=== PATIENT | male | born 1960 | race Caucasian/White ===

== ENCOUNTER 2023-04-21 09:10 | Day surgery (SDC) | payer OTHER, SELFPAY ==
[2023-04-16 11:17] VITALS: BMI 31.0
--- NOTE | 2023-04-18 08:12 | MHC.SHP ---
Pre-Procedural Eval Section A Date of Service: 04/18/23 The patient is an INPATIENT: No Changes since office visit: No Cold of Flu in the past 2 weeks, No New Medical Problems, No Changes in Medication and No Patient answered all questions The History & Physical has been completed within 30 days and I have reviewed it.: Yes Section B Chief Complaint: Age-related nuclear cataract, left eye Allergies: Allergies Allergy/AdvReac Type Severity Reaction Status Date / Time No Known Allergies Allergy Verified 04/16/23 10:47 Plan Diagnosis/Plan: Unchanged I have reviewed the history and physical and performed a pertinent physical examination on my patient. No changes have occurred unless specified. Time Spent With Patient Time: Total time managing care of this patient today ____ minutes.
--- NOTE | 2023-04-18 14:59 | HO.ANESPROP2 ---
HPI - Anesthesia Eval Consult details Narrative: 63yo M for Left Cataract Extraction IOL Trabeculectomy, Left Trabeculectomy PCP cleared No previous cataract on record [facility] Past Medical History Medical History (Updated 04/16/23 @ 10:47 by Jeniffer Richmodn RN) Asthma CVA (cerebral vascular accident) Diabetes Diverticulosis GERD (gastroesophageal reflux disease) Glaucoma HTN (hypertension) Hyperlipidemia Intraparenchymal hemorrhage of brain Legionnaires' disease Obesity, Class I, BMI 30.0-34.9 (see actual BMI) Psoriatic arthritis Skin cancer Tubular adenoma Surgical History Surgical History (Updated 04/16/23 @ 11:08 by Jeniffer Richmond RN) History of partial colectomy Hx of melanoma excision Social History Social History Are you a primary infant childcare provider to a significant other at home: No Do you presently have visiting nurse or other home services: No Patient Tobacco Use Status: Never used Tobacco Use of substances other than those prescribed or required for medical reasons: No Have you been hit, kicked, punched, or otherwise hurt by someone within the past year? If so, by whom?: No Are you DNR?: No Advance Directives: No Advance Directives Information Provided: No Advance Directives on File: No Recently lost weight without trying: No Eating poorly because of decreased appetite: No Nutrition Risks: No Nutritional Risk Poor oral hygiene: Yes (partial dentures upper and lower) Meds Allergies Allergy/AdvReac Type Severity Reaction Status Date / Time No Known Allergies Allergy Verified 04/16/23 10:47 Home Medications Medication Instructions Recorded Confirmed Last Taken Type acetaminophen 500 mg tablet 1,000 mg PO DAILY 04/16/23 04/16/23 Unknown History albuterol sulfate 90 mcg/actuation 2 puff inhalation Q4H PRN wheezing 04/16/23 04/16/23 Unknown History aerosol inhaler (Ventolin HFA) aspirin 81 mg tablet,delayed 81 mg PO BEDTIME 04/16/23 04/16/23 Unknown History release atorvastatin 80 mg tablet 80 mg PO BEDTIME 04/16/23 04/16/23 Unknown History cholecalciferol (vitamin D3) 125 125 mcg PO DAILY 04/16/23 04/16/23 Unknown History mcg (5,000 unit) tablet (Vitamin D3) folic acid 1 mg tablet 1 mg PO DAILY 04/16/23 04/16/23 Unknown History insulin glargine 100 unit/mL (3 65 unit subcut BEDTIME 04/16/23 04/16/23 Unknown History mL) subcutaneous pen (Lantus Solostar U-100 Insulin) krill [id number]-epa 150 1 cap PO DAILY 04/16/23 04/16/23 Unknown History mg-450 mg capsule,delayed release latanoprost 0.005 % eye drops 1 drp BEDTIME 04/16/23 04/16/23 Unknown History lisinopril 10 1 tab PO DAILY 04/16/23 04/16/23 Unknown History mg-hydrochlorothiazide 12.5 mg tablet methotrexate sodium 2.5 mg tablet 22.5 mg PO QWEEK 04/16/23 04/16/23 Unknown History omeprazole 20 mg capsule,delayed 20 mg PO DAILY 04/16/23 04/16/23 Unknown History release timolol maleate 0.5 % eye drops 1 drp QAM 04/16/23 04/16/23 Unknown History Exam Exam Date and Time: April 18, 2023 145 Height,Weight and Vital Signs: Height 5 ft 9 in Weight 95.254 kg Assessment and Plan Assessment Anesthesia Assessment: Chart Reviewed
[2023-04-21 10:06] VITALS: BP 143/74; PULSE 66; RESP 16; TEMP 36.3; O2SAT 91
[2023-04-21] MEDS: Tetracaine HCl/PF 0.5% Oph Sol 4 ML DROPS 1 DROP EYE-LEFT (10:11)
[2023-04-21 10:14] LABS: Glucose, Whole Blood 115 mg/dL (60-115)
[2023-04-21] MEDS: Cyclopentolate 1 % Ophth Sol 2 ML DRPBTL 1 DROP EYE-LEFT ×3 (10:14→10:26)
[2023-04-21] MEDS: Tropicamide 1 % Ophth Sol 3 ML BTL 1 DROP EYE-LEFT ×3 (10:16→10:27)
[2023-04-21] MEDS: Ketorolac Tromethamine 0.5% Op 5 ML DROPS 1 DROP EYE-LEFT ×3 (10:17→10:28)
[2023-04-21] MEDS: Phenylephrine HCL 2.5% Oph SoL 2 ML BOTTLE 1 DROP EYE-LEFT ×3 (10:19→10:30)
[2023-04-21] MEDS: Lactated Ringers 500 ML 50 ML IV (10:20)
--- NOTE | 2023-04-21 10:28 | HO.ANESPROP2 ---
[facility] Past Medical History Medical History Asthma CVA (cerebral vascular accident) Diabetes Diverticulosis GERD (gastroesophageal reflux disease) Glaucoma HTN (hypertension) Hyperlipidemia Intraparenchymal hemorrhage of brain Legionnaires' disease Obesity, Class I, BMI 30.0-34.9 (see actual BMI) Psoriatic arthritis Skin cancer Tubular adenoma Family History Family history of problems with anesthesia: No Surgical History Surgical History History of partial colectomy Hx of melanoma excision History of Problems with Anesthesia: No Social History Social History Are you a primary school childcare attendant to a significant other at home: No Do you presently have visiting nurse or other home services: No Patient Tobacco Use Status: Never used Tobacco Use of substances other than those prescribed or required for medical reasons: No Have you been hit, kicked, punched, or otherwise hurt by someone within the past year? If so, by whom?: No Are you DNR?: No Advance Directives: No Advance Directives Information Provided: Yes Advance Directives on File: No Recently lost weight without trying: No Eating poorly because of decreased appetite: No Nutrition Risks: No Nutritional Risk Poor oral hygiene: Yes (partial dentures upper and lower) Meds Allergies Allergy/AdvReac Type Severity Reaction Status Date / Time No Known Allergies Allergy Verified 04/21/23 09:55 Active Medications: Current Medications Albuterol Sulfate (Albuterol Sulfate (0.083%) 2.5 Mg/3 Ml Vial.Neb) 2.5 mg INHALE ONCE PRN PRN Reason: Shortness of Breath/Wheezing Lactated Ringer's (Lr) 500 mls @ 50 mls/hr IV .Q10H FUNMILAYO Stop: 04/21/23 19:44 Last Admin: 04/21/23 10:20 Dose: 50 mls/hr Povidone Iodine (Povidone Iodine 5 % Ophth Soln 30 Ml Bottle) 1 appl EYE-LEFT PREOP PRN PRN Reason: Pre-Op Surgical Implant Prophy Home Medications Medication Instructions Recorded Confirmed Last Taken Type acetaminophen 500 mg tablet 1,000 mg PO DAILY 04/16/23 04/16/23 04/21/23 08:00 History albuterol sulfate 90 mcg/actuation 2 puff inhalation Q4H PRN wheezing 04/16/23 04/16/23 Unknown History aerosol inhaler (Ventolin HFA) aspirin 81 mg tablet,delayed 81 mg PO BEDTIME 04/16/23 04/16/23 Unknown History release atorvastatin 80 mg tablet 80 mg PO BEDTIME 04/16/23 04/16/23 Unknown History cholecalciferol (vitamin D3) 125 125 mcg PO DAILY 04/16/23 04/16/23 Unknown History mcg (5,000 unit) tablet (Vitamin D3) folic acid 1 mg tablet 1 mg PO DAILY 04/16/23 04/16/23 Unknown History insulin glargine 100 unit/mL (3 65 unit subcut BEDTIME 04/16/23 04/16/23 Unknown History mL) subcutaneous pen (Lantus Solostar U-100 Insulin) krill [id number]-dha-epa 150 1 cap PO DAILY 04/16/23 04/16/23 Unknown History mg-450 mg capsule,delayed release latanoprost 0.005 % eye drops 1 drp BEDTIME 04/16/23 04/16/23 Unknown History lisinopril 10 1 tab PO DAILY 04/16/23 04/16/23 04/21/23 08:00 History mg-hydrochlorothiazide 12.5 mg tablet methotrexate sodium 2.5 mg tablet 22.5 mg PO QWEEK 04/16/23 04/16/23 Unknown History omeprazole 20 mg capsule,delayed 20 mg PO DAILY 04/16/23 04/16/23 04/21/23 08:00 History release timolol maleate 0.5 % eye drops 1 drp QAM 04/16/23 04/16/23 Unknown History Exam Exam Date and Time: April 21, 2023 1028 Height,Weight and Vital Signs: Height 5 ft 9 in Weight 95.254 kg Last Vital Signs Temp 97.4 F 04/21/23 10:06 Pulse 66 04/21/23 10:06 Resp 16 04/21/23 10:06 BP 143/74 H 04/21/23 10:06 Pulse Ox 91 L 04/21/23 10:06 O2 Del Method Room Air 04/21/23 10:06 Pertinent Lab Results Pertinent Lab Results: Laboratory Tests 04/21/23 10:08 POC Glucose 115 Airway Mallampati Class: III TM Dist: >3cm Neck ROM: Full Assessment and Plan Assessment Anesthesia Assessment: Anesthesia Plan Discussed and Chart Reviewed Final Anesthetic Review Family History of Problems with Anesthesia: No History of Problems with Anesthesia: No NPO: Yes ASA Class: III Final Preanesthetic Review: No Changes in Pt Med Stat, Meds/Allgs Chart Reviewed, Consent Obtained/Reviewed and Anes Risks/Benef Reviewed Patient Risk: Intermediate Procedure Risk: Low Anesthetic Plan Anesthetic Plan: MAC: Disposition: Standard PACU
--- NOTE | 2023-04-21 11:28 | HO.PNOPHT ---
Ophthalmology Procedure Procedure Date of Service: 04/21/23 Ophthalmology Viscoelastic: Healsantiago Duet Dual Pack Pro Ophthalmology Lenses: TECTUTU [id number] (22) Procedure Notes: PREOPERATIVE DIAGNOSIS: Decreased visual acuity left eye secondary to cataract and glaucoma POSTOPERATIVE DIAGNOSIS: Same PROCEDURE: Left cataract extraction with intraocular lens insertion and trabeculectomy, left eye SURGEON: Hood Cabrera M.D. ANESTHESIA: Topical/MAC ESTIMATED BLOOD LOSS: None COMPLICATIONS: None After obtaining informed consent, the patient was brought to the operating room suite and placed in the supine position. After adequate sedation per anesthesia, topical drops of Tetracaine were given to the left eye. The eye was then prepped and draped in the usual sterile fashion. The operating room microscope was then positioned over the left eye and a lid speculum placed. 2% Lidocaine was instilled subconjunctivally. After awaiting 30 seconds, a paracentesis was created superiorly. Hemostasis was then achieved using wet field cautery. Mitomycin .4mg/ml was then placed in the conjunctival pocket and held in place for two minutes. The subconjunctival pocket was then irrigated copiously with 20 mls of BSS. Paracentesis was then created. Viscoelastic was then instilled into the anterior chamber. A crescent blade was then utilized to create a partial thickness sclera wound followed by advancement to clear cornea with the crescent blade. A keratome was then utilized to enter the anterior chamber. Capsulotomy forceps were then utilized to create a continuous circular tear capsulotomy. Hydrodissection and hydrodelineation were carried out until adequate mobilization of the nucleus occurred. Phacoemulsification was utilized to remove the dense central nucleus followed by removal of remnant cortical material utilizing the automated aspiration irrigation unit. Viscoelastic was then instilled into the posterior capsular bag followed by placement of a posterior chamber intraocular lens. Attention was then directed to create a trabeculectomy. A Terra punch was then utilized to create the trabeculectomy. The residual Viscoelastic was then removed utilizing the automated IA machine. The egress of aqueous was evaluated and found to be appropriate. The conjunctiva was then closed with a 9-0 vicryl suture. BSS was then instilled into the anterior chamber creating a superior bleb, without obvious leakage. Intracameral injection of Vigamox 0.3%, 0.1 ml and subtenon injection of Kenalog-40 0.2 ml was given followed by an atropine drop. The patient tolerated the procedure well and will be followed up in the a.m.
[2023-04-21 12:26] VITALS: BP 135/67; PULSE 59; RESP 18; TEMP 36.7; O2SAT 95
== END 2023-04-21 12:32 | disposition home or self-care (01) ==
PROVIDERS: PCP Internal Medicine Cardiovascular Disease; Visit Provider Ophthalmology
PROC: (CPT 66984; principal; 2023-04-21 11:20)
DX: H25.12 Age-related nuclear cataract, left eye (principal); H54.7 Unspecified visual loss; H40.1133 Primary open-angle glaucoma, bilateral, severe stage; E11.9 Type 2 diabetes mellitus without complications; I10 Essential (primary) hypertension; E78.5 Hyperlipidemia, unspecified; Z86.73 Personal history of transient ischemic attack (TIA), and cerebral infarction without residual deficits; Z79.4 Long term (current) use of insulin; Z79.899 Other long term (current) drug therapy; Z79.82 Long term (current) use of aspirin
CPT/HCPCS: 66984; 66170; 82947; J2250; J3301; J7315; V2632

== ENCOUNTER 2023-05-12 10:53 | Inpatient (IN) | payer OTHER, SELFPAY ==
--- NOTE | ~2023-05-12 | MR_ITS ---
EXAMINATION: MR BRAIN WITHOUT CONTRAST CLINICAL INFORMATION: Aphasia. COMPARISON: Head CT 05/12/2023. TECHNIQUE: Multiplanar, multisequence imaging of the brain was performed without intravenous contrast. FINDINGS: There is a small acute lacunar infarct in the left putamen seen on series 3 image . Several chronic lacunar infarcts are seen in the bilateral frontal lobe deep white matter, bilateral basal ganglia, bilateral thalami, and in the right cerebellum. Mild chronic microangiopathic changes are seen within the white matter. There is no hemorrhage, mass, or extra-axial fluid collection. Chronic hemosiderin staining is noted in the region of the right thalamic infarct. The ventricles are normal in size without hydrocephalus. The major arterial flow voids are preserved at the skull base. There is signal abnormality within the left globe and changes of left-sided lens replacement. MR/MR head/brain wo con IMPRESSION: Small acute lacunar infarct in the left putamen. Multiple chronic lacunar infarcts in the bilateral lobe deep white matter, basal ganglia, thalami, and right cerebellum. Signal abnormality noted in the left globe which may related to prior retinopexy or alternatively could be related to subretinal fluid. Recommend correlating with ophthalmologic exam or ophthalmologic surgical history.
--- NOTE | ~2023-05-12 | CT_ITS ---
CT ANGIOGRAM NECK WITH CONTRAST CT ANGIOGRAM BRAIN WITH CONTRAST CLINICAL INFORMATION: Aphasia. COMPARISON: Head CT May 12, 2023. TECHNIQUE: Test bolus sequences followed by intravenous administration 70 mL of Omnipaque 350. Helical imaging was performed in the axial plane from the thoracic inlet to the skull vertex. Delayed postcontrast imaging of the head was also performed. The data was processed at the educational technologist workstation for generation of MIP sequences. Angled MIPs and volume rendered reformatted images were also generated at an offline 3D workstation under concurrent supervision. Stenoses are assessed in accordance with NASCET criteria unless otherwise indicated. This CT examination was performed using dose optimization techniques as appropriate, variously including the following: *Automated exposure control *Adjustment of mA and/or kV according to patient size (this includes techniques or standardized protocols for targeted exams where dose is matched to indication/reason for exam; i.e. extremities or head) *Use of iterative reconstruction technique FINDINGS: BRAIN: There is a small age-indeterminate right striatocapsular infarct and there is a small age-indeterminate upper left putamen infarct that can be more definitively aged with MRI as indicated. Multiple lacunar infarcts within the deep escamilla nuclei bilaterally and the right cerebellum, likely chronic however difficult to definitively age without priors available for comparison. There is no mass effect and there is no intracranial hemorrhage. [There is no intracranial hemorrhage, hydrocephalus, extra-axial surface collection, midline shift, or other herniation pattern. The basilar cisterns are preserved. No significant soft tissue abnormality. No acute osseous abnormality. The paranasal sinuses and the mastoid air cells are well aerated.] CERVICAL SOFT TISSUES AND LUNG APICES: Imaged upper lungs are clear. No significant soft tissue findings within the neck. There is multilevel cervical spondylosis. NECK CTA: [There is a classic 3 vessel configuration of the aortic arch. Proximal arch vessels are non-stenotic. The vertebral arteries are codominant. No significant ostial stenosis is visualized on either side. Both vertebral arteries are widely patent throughout their extracranial cervical course. Both common and internal carotid arteries are normal in course and caliber.] BRAIN CTA: [There is normal opacification of major intracranial arteries. No focal flow-limiting stenosis nor discrete proximal large artery occlusion. There is a 1.5 mm infundibulum at the hypoplastic right posterior communicating artery origin. Timing of the contrast bolus allows assessment of the major dural venous sinuses, which all opacify normally] CT/CT angio head neck stroke IMPRESSION: - There is a small age-indeterminate right striatocapsular infarct and there is a small age-indeterminate upper left putamen infarct that can be more definitively aged with MRI as indicated. Multiple lacunar infarcts within the deep escamilla nuclei bilaterally and the right cerebellum, likely chronic however difficult to definitively age without priors available for comparison. There is no mass effect and there is no intracranial hemorrhage. - No significant arterial stenoses and no acute arterial occlusions within the head or neck. Covering provider paged with these findings at 2:09 PM on May 12, 2023. I discussed the findings with Dr. Hankins at 2:14 PM on May 12, 2023.
--- NOTE | ~2023-05-12 | CT_ITS ---
EXAMINATION: CT HEAD WITHOUT CONTRAST CLINICAL INFORMATION: Aphasia. COMPARISON: None available. TECHNIQUE: Contiguous axial imaging was performed from the skull base to vertex without intravenous administration of contrast. Coronal and sagittal reformatted images were obtained. This CT examination was performed using dose optimization techniques as appropriate, variously including the following: *Automated exposure control *Adjustment of mA and/or kV according to patient size (this includes techniques or standardized protocols for targeted exams where dose is matched to indication/reason for exam; i.e. extremities or head) *Use of iterative reconstruction technique DLP: 786 mGy-cm FINDINGS: There is mild widening of the cortical sulci and associated ventriculomegaly. The lateral ventricles are symmetrical. The third and fourth ventricles are in their normal midline position. The basilar and prepontine cisterns are unremarkable. Mild periventricular microvascular changes are seen. Old lacunar type infarct in the left frontal lobe in the left anterior lateral periventricular region. There is no acute intra or extracerebral abnormality. There is no mass effect or midline shift. Sections through the bony calvarium are unremarkable. The orbits are intact. The paranasal sinuses are clear. The mastoid air cells are clear. The nasal septal deviation, apex the right is seen. Mild to moderate mid nasal septal deviation, apex the right with associated apical spur. CT/CT head/brain wo IV con IMPRESSION: No acute intracranial pathology.
[2023-05-12 11:02] VITALS: BP 124/79; BP 180/74; PULSE 68; RESP 15; O2SAT 96; O2SAT 97; BMI 31.3
--- NOTE | 2023-05-12 11:04 | ED.WEAKNESS ---
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 Patient fell that last night and this morning he couldn't find the words. He felt that his symptoms started at 6pm. Onset (ago): hour(s) Duration: improved Severity: mild Related Data Home Medications Medication Instructions Recorded Confirmed acetaminophen 500 mg tablet 1,000 mg PO DAILY 04/16/23 05/12/23 albuterol sulfate 90 mcg/actuation 2 puff inhalation Q4H PRN wheezing 04/16/23 05/12/23 aerosol inhaler (Ventolin HFA) aspirin 81 mg tablet,delayed 81 mg PO BEDTIME 04/16/23 05/12/23 release atorvastatin 80 mg tablet 80 mg PO BEDTIME 04/16/23 05/12/23 cholecalciferol (vitamin D3) 125 125 mcg PO DAILY 04/16/23 05/12/23 mcg (5,000 unit) tablet (Vitamin D3) folic acid 1 mg tablet 1 mg PO SUMOTUTHFRSA@0900 04/16/23 05/12/23 insulin glargine 100 unit/mL (3 60 unit subcut BEDTIME 04/16/23 05/12/23 mL) subcutaneous pen (Lantus Solostar U-100 Insulin) krill [id number]-8-dha-epa 150 1 cap PO DAILY 04/16/23 05/12/23 mg-450 mg capsule,delayed release lisinopril 10 1 tab PO DAILY 04/16/23 05/12/23 mg-hydrochlorothiazide 12.5 mg tablet methotrexate sodium 2.5 mg tablet 20 mg PO WE@0900 04/16/23 05/12/23 omeprazole 20 mg capsule,delayed 20 mg PO DAILY 04/16/23 05/12/23 release insulin aspart U-100 100 unit/mL See Protocol subcut TIDAC 05/12/23 05/12/23 (3 mL) subcutaneous pen Allergies Allergy/AdvReac Type Severity Reaction Status Date / Time No Known Allergies Allergy Verified 04/21/23 09:55 Review of Systems Review of Systems: Yes all other systems are reviewed and are negative Neurologic: Denies Sensory deficit (Neuro) [facility] Past Medical History Medical History Asthma CVA (cerebral vascular accident) Diabetes Diverticulosis GERD (gastroesophageal reflux disease) Glaucoma HTN (hypertension) Hyperlipidemia Intraparenchymal hemorrhage of brain Legionnaires' disease Obesity, Class I, BMI 30.0-34.9 (see actual BMI) Psoriatic arthritis Skin cancer Tubular adenoma Surgical History History of partial colectomy Hx of melanoma excision Social History Social History Are you a primary caretaker to a significant other at home: No Do you presently have visiting nurse or other home services: No Patient Tobacco Use Status: Never used Tobacco Advance Directives: No Advance Directives Information Provided: No Physical Exam Vital Signs: Vital Signs: Last Vital Signs Temp 97.8 F 05/12/23 14:12 Pulse 53 05/12/23 14:12 Resp 16 05/12/23 14:12 BP 136/79 05/12/23 14:12 Pulse Ox 94 05/12/23 14:12 O2 Del Method Room Air 05/12/23 14:12 BMI result Body Mass Index 31.3 Const: General: healthy appearing Nutritional Appearance: average body habitus Orientation/consciousness: oriented to person and patient oriented x3 Limitations: no limitations HEENT: Head: Yes normal to inspection Ears: external ears normal General nose exam: Normal external nose present Mouth: Normal oral and palatal mucosa present and oropharynx normal Throat: Yes posterior oropharynx normal Eyes: General: appearance normal, both eyes and all related structures Neck: Other: supple Neck: Yes normal visual inspection Chest: Chest palpation & inspection: normal inspection of the chest Resp: Auscultation: clear to auscultation bilaterally Cardio: Jugular venous distension: no JVD Rate: regular rate Rhythm: regular rhythm Heart sounds: S1 normal heart sound present and S2 normal heart sound present GI: Inspection: Yes normal to inspection Palpation (GI): Soft to palpation, nontender and No hepatosplenomegaly present Auscultation: normal bowel sounds : General: Yes no CVA tenderness Back/Spine/Pelvis: Back: no CVA tenderness Skin: General skin exam: no rashes or lesions noted Neuro: General: oriented to person and patient oriented x3 Cranial nerves: Yes CN's II-XII intact bilaterally Motor exam (neuro): 5/5 motor strength present throughout Sensory Exam: No Sensory deficit (Neuro) Extrem: General: Yes normal to inspection Psych: Appearance: grossly normal NIH Stroke Scale Internal: Initial- Upon Arrival Level of Consciousness: Alert Level of Consciousness Questions: Answers both questions correctly Level of Consciousness Commands: Performs both tasks correctly Best Gaze: Normal Visual: No visual loss Facial Palsy: Normal Motor Arm (Right): No drift Motor Arm (Left): No drift Motor Leg (Right): No drift Motor Leg (Left): No drift Limb Ataxia: Absent Sensory: Normal Best Language: No aphasia Dysarthia: Normal Extinction and Inattention: No abnormality Score: 0 Course Reevaluation(s) Reevaluation #1: patient non focal, no acute infarct on CT will admit to [facility] for TIA Time: 13:21 Medications Administered Discontinued Medications Generic Name Dose Route Start Last Admin Trade Name Osmanq PRN Reason Stop Dose Admin Iohexol 100 ml 05/12/23 13:34 05/12/23 13:34 Iohexol 350 Mg/Ml 100 Ml Infus..Btl IV 05/12/23 13:35 70 ml ONCE ONE Administration Medical Decision Making Differential Diagnosis Differential Diagnoses: The differential diagnosis associated with the presentation includes (CVA, TIA, cerebral bleed, cerebral mass were all considered) Admission/Observation Consideration of admission/observation: Escalation of care including admission/observation considered (Upon arrival this 63 yo male with prior CVA was considered for admission) Consult Healthcare Provider Management of the patient was discussed with: Hospitalist Lab Data MDM Lab Attestation statement: I reviewed the patient's lab results. (elevated glucose noted) 05/12/23 11:18 05/12/23 11:18 Labs: Lab Results 05/12/23 05/12/23 05/12/23 Range/Units 11:13 11:18 11:18 WBC 7.8 (4.8-10.8) X10*3/uL RBC 4.72 (4.60-5.80) X10*6/uL Hgb 13.8 L (14.0-18.0) g/dl Hct 42.0 (42.0-52.0) % MCV 89.0 (80.0-98.0) fL MCH 29.2 (27.0-33.0) pg MCHC 32.9 (31.0-36.0) g/dl RDW 14.2 (11.0-16.0) % Plt Count 231 (160-400) X10*3/uL MPV 11.5 (9.4-12.4) fL Immature Gran % (Auto) 0.5 H (0.0-0.4) % Neut % (Auto) 65.7 (45-73) % Lymph % (Auto) 24.7 (20-40) % Pierce % (Auto) 6.2 (2-11) % Eos % (Auto) 1.9 (0-4) % Baso % (Auto) 1.0 (0-2) % Lymph # (Auto) 1.9 (1.2-4.9) X10*3/uL Pierce # (Auto) 0.5 (0.1-1.2) X10*3/uL Eos # (Auto) 0.2 (0.0-0.4) X10*3/uL Baso # (Auto) 0.1 (0.0-0.2) X10*3/uL Abs Immat Gran (auto) 0.04 H (0.00-0.03) X10*3/uL Absolute Neuts (auto) 5.1 (2.0-8.3) x10*3/uL Absolute Nucleated RBC 0.000 (0.0-0.012) X10*3/uL Nucleated RBC % (auto) 0.0 (0.0-0.2) /100WBC PT (11.1-13.3) SEC Whole Blood PT (11.1-13.5) sec INR (0.9-1.1) Whole Blood INR (0.9-1.1) APTT (26.0-36.4) SEC Sodium 139 (135-145) mmol/L Potassium 3.8 (3.3-5.1) mmol/L Chloride 103 (96-108) mmol/L Carbon Dioxide 27 (22-29) mmol/L Anion Gap 13 (12-20) BUN 15 (9-16) mg/dL Creatinine 1.16 (0.5-1.4) mg/dL Estim Creat Clear Calc 74.5 Estimated GFR > 60 POC Glucose 199 H (60-115) mg/dL Random Glucose 202 H (60-115) mg/dL Calcium 10.1 (8.4-10.2) mg/dL Total Creatine Kinase 143 (38-174) U/L Troponin I High Sens (<3.5-35.0) ng/L 05/12/23 05/12/23 05/12/23 Range/Units 11:19 11:19 11:37 WBC (4.8-10.8) X10*3/uL RBC (4.60-5.80) X10*6/uL Hgb (14.0-18.0) g/dl Hct (42.0-52.0) % MCV (80.0-98.0) fL MCH (27.0-33.0) pg MCHC (31.0-36.0) g/dl RDW (11.0-16.0) % Plt Count (160-400) X10*3/uL MPV (9.4-12.4) fL Immature Gran % (Auto) (0.0-0.4) % Neut % (Auto) (45-73) % Lymph % (Auto) (20-40) % Pierce % (Auto) (2-11) % Eos % (Auto) (0-4) % Baso % (Auto) (0-2) % Lymph # (Auto) (1.2-4.9) X10*3/uL Pierce # (Auto) (0.1-1.2) X10*3/uL Eos # (Auto) (0.0-0.4) X10*3/uL Baso # (Auto) (0.0-0.2) X10*3/uL Abs Immat Gran (auto) (0.00-0.03) X10*3/uL Absolute Neuts (auto) (2.0-8.3) x10*3/uL Absolute Nucleated RBC (0.0-0.012) X10*3/uL Nucleated RBC % (auto) (0.0-0.2) /100WBC PT 10.4 L (11.1-13.3) SEC Whole Blood PT 11.7 (11.1-13.5) sec INR 0.9 (0.9-1.1) Whole Blood INR 1.0 (0.9-1.1) APTT 25.5 L (26.0-36.4) SEC Sodium (135-145) mmol/L Potassium (3.3-5.1) mmol/L Chloride (96-108) mmol/L Carbon Dioxide (22-29) mmol/L Anion Gap (12-20) BUN (9-16) mg/dL Creatinine (0.5-1.4) mg/dL Estim Creat Clear Calc Estimated GFR POC Glucose (60-115) mg/dL Random Glucose (60-115) mg/dL Calcium (8.4-10.2) mg/dL Total Creatine Kinase (38-174) U/L Troponin I High Sens 3.8 (<3.5-35.0) ng/L 05/12/23 Range/Units 11:37 WBC (4.8-10.8) X10*3/uL RBC (4.60-5.80) X10*6/uL Hgb (14.0-18.0) g/dl Hct (42.0-52.0) % MCV (80.0-98.0) fL MCH (27.0-33.0) pg MCHC (31.0-36.0) g/dl RDW (11.0-16.0) % Plt Count (160-400) X10*3/uL MPV (9.4-12.4) fL Immature Gran % (Auto) (0.0-0.4) % Neut % (Auto) (45-73) % Lymph % (Auto) (20-40) % Pierce % (Auto) (2-11) % Eos % (Auto) (0-4) % Baso % (Auto) (0-2) % Lymph # (Auto) (1.2-4.9) X10*3/uL Pierce # (Auto) (0.1-1.2) X10*3/uL Eos # (Auto) (0.0-0.4) X10*3/uL Baso # (Auto) (0.0-0.2) X10*3/uL Abs Immat Gran (auto) (0.00-0.03) X10*3/uL Absolute Neuts (auto) (2.0-8.3) x10*3/uL Absolute Nucleated RBC (0.0-0.012) X10*3/uL Nucleated RBC % (auto) (0.0-0.2) /100WBC PT (11.1-13.3) SEC Whole Blood PT (11.1-13.5) sec INR (0.9-1.1) Whole Blood INR (0.9-1.1) APTT (26.0-36.4) SEC Sodium (135-145) mmol/L Potassium (3.3-5.1) mmol/L Chloride (96-108) mmol/L Carbon Dioxide (22-29) mmol/L Anion Gap (12-20) BUN (9-16) mg/dL Creatinine (0.5-1.4) mg/dL Estim Creat Clear Calc Estimated GFR POC Glucose 225 H (60-115) mg/dL Random Glucose (60-115) mg/dL Calcium (8.4-10.2) mg/dL Total Creatine Kinase (38-174) U/L Troponin I High Sens (<3.5-35.0) ng/L Independent Interpretation I performed an independent interpretation of an: EKG (sinus [address] or twave changes) and CT Scan (no bleed or mass) Radiology Impression Discussion of test interpretation with radiology: I have reviewed the radiologist's reading. (I agree with the radiology reading) Tests considered The following testing was considered but not selected: I considered an MRI but that does not to be done immediately Chronic Conditions Patient?s care impacted by: Diabetes and Hypertension Discharge Plan Discharge Clinical Impression: Transient cerebral ischemia Patient Disposition: Admitted As Inpatient
--- NOTE | 2023-05-12 11:08 | ECG_ITS ---
Test Reason : stroke Blood Pressure : / mmHG Vent. Rate : 061 BPM Atrial Rate : 061 BPM P-R Int : 174 ms QRS Dur : 084 ms QT Int : 406 ms P-R-T Axes : 024 -09 048 degrees QTc Int : 408 ms Normal sinus rhythm Minimal voltage criteria for LVH, may be normal variant ( R in aVL ) Borderline ECG No previous ECGs available Referred By: Abel Hankins Electronically Signed By:GONZALES BOYKIN MD
[2023-05-12 11:17] LABS: Glucose, Whole Blood 199 mg/dL (60-115)
[2023-05-12 11:22] LABS: MANUAL DIFF FLAG NO
[2023-05-12 11:23] LABS: Basophils Absolute Auto 0.1 X10*3/uL (0.0-0.2); Eosinophils Absolute Auto 0.2 X10*3/uL (0.0-0.4); Eosinophils Percent Auto 1.9 % (0-4); Hemoglobin 13.8 g/dl (14.0-18.0); Imm Gran Abs Auto 0.04 X10*3/uL (0.00-0.03); Imm Gran Pct Auto 0.5 % (0.0-0.4); Lymphocytes Absolute Auto 1.9 X10*3/uL (1.2-4.9); Lymphocytes Percent Auto 24.7 % (20-40); Mean Corpuscular HGB Conc 32.9 g/dl (31.0-36.0); Mean Corpuscular Hemoglobin 29.2 pg (27.0-33.0); Mean Platelet Volume 11.5 fL (9.4-12.4); Monocytes Absolute Auto 0.5 X10*3/uL (0.1-1.2); Monocytes Percent Auto 6.2 % (2-11); Neutrophils Absolute Auto 5.1 x10*3/uL (2.0-8.3); Neutrophils Percent Auto 65.7 % (45-73); Platelet Count 231 X10*3/uL (160-400); Red Blood Count 4.72 X10*6/uL (4.60-5.80); Red Cell Distribution Width 14.2 % (11.0-16.0); White Blood Count 7.8 X10*3/uL (4.8-10.8)
[2023-05-12 11:29] LABS: INTERNATIONAL NORM RATIO 0.9 (0.9-1.1); Prothrombin Time 10.4 SEC (11.1-13.3)
[2023-05-12 11:31] LABS: Partial Thromboplastin Time 25.5 SEC (26.0-36.4)
[2023-05-12 11:43] LABS: Anion Gap 13 (12-20); Blood Urea Nitrogen 15 mg/dL (9-16); Calcium 10.1 mg/dL (8.4-10.2); Carbon Dioxide 27 mmol/L (22-29); Chloride 103 mmol/L (96-108); Creatinine Clr Calc Pharmacy 74.5; Estimated Glomerular Filt Rate > 60; Glucose Random 202 mg/dL (60-115); Potassium 3.8 mmol/L (3.3-5.1); Sodium 139 mmol/L (135-145)
[2023-05-12 11:44] LABS: Prothrombin Time Whole Bld POC 11.7 sec (11.1-13.5)
[2023-05-12 11:45] LABS: Glucose, Whole Blood 225 mg/dL (60-115)
[2023-05-12 11:47] LABS: Troponin-I High Sensitivity 3.8 ng/L (<3.5-35.0)
[2023-05-12 12:43] LABS: Stroke Lab Use COMPLETE
[2023-05-12 12:56] VITALS: BP 130/70; PULSE 53; RESP 15; O2SAT 95
--- NOTE | 2023-05-12 12:59 | PC.NURSE ---
patient awake and alert, call harman within reach. patient swallow screening passed
[2023-05-12] MEDS: iohexoL 350 MG/ML 100 ML INFUS..BTL IV (13:34)
[2023-05-12 14:12] VITALS: BP 136/79; PULSE 53; RESP 16; TEMP 36.6; O2SAT 94
--- NOTE | 2023-05-12 14:19 | PHA.MEDREC ---
Pharmacy Consult ? Medication Reconciliation Pharmacy has completed the medication reconciliation. Family member had written list of medications that matched claim history. Atorvastatin was no on the list but reported he was still taking it. Patient reported he is not using any eye drops. Maira Camarena, PharmD
--- NOTE | 2023-05-12 15:52 | P.HPHOSP_ITS ---
History of Present Illness Date of Service: 05/12/23 Chief Complaint: Aphasia 63 year old man presenting with aphagia that started last night. He denied chest pain, sob, visual changes, facial droop, fall, headache. Apparently had a stroke after the JJ vaccine. At this time his symptoms have resolved . Labs all within acceptable limits, vital signs stable. Head and neck CTA showing multiple infarctions but unable to date. In the ER, patient received Tylenol, Zofran and albuterol. He will be admitted for further management and treatment of possible TIA/stroke Review of Systems Review of Systems: Denies any recent fever chills or decrease in appetite respiratory denies any shortness of breath coverage production cardiovascular denied chest pain gastrointestinal denies any dysphagia abdominal pain nausea vomiting or diarrhea genitourinary denies any dysuria frequency or hematuria musculoskeletal denies any joint pain or swelling neuropsych denies any weakness or seizures all other systems reviewed are negative [facility] Medical History Asthma CVA (cerebral vascular accident) Diabetes Diverticulosis GERD (gastroesophageal reflux disease) Glaucoma HTN (hypertension) Hyperlipidemia Intraparenchymal hemorrhage of brain Legionnaires' disease Obesity, Class I, BMI 30.0-34.9 (see actual BMI) Psoriatic arthritis Skin cancer Tubular adenoma Surgical History History of partial colectomy Hx of melanoma excision Social History Are you a primary health care analyst to a significant other at home: No Do you presently have visiting nurse or other home services: No Patient Tobacco Use Status: Never used Tobacco Advance Directives: No Advance Directives Information Provided: No Meds Allergies Allergy/AdvReac Type Severity Reaction Status Date / Time No Known Allergies Allergy Verified 04/21/23 09:55 Active Medications: Current Medications Acetaminophen (Acetaminophen 325 Mg Tablet) 650 mg PO Q6H PRN PRN Reason: Pain, Mild (Pain Scale 1-3) Ondansetron HCl (Ondansetron Hcl 4 Mg/2 Ml Vial) 4 mg IVPUSH Q8H PRN PRN Reason: Nausea and Vomiting Sodium Chloride (0.9 % Sodium Chloride Flush 3 Ml Syringe) 3 ml IVFLUSH QSHIFT FUNMILAYO Home Medications Medication Instructions Recorded Confirmed Last Taken Type acetaminophen 500 mg tablet 1,000 mg PO DAILY 04/16/23 05/12/23 05/12/23 History albuterol sulfate 90 mcg/actuation 2 puff inhalation Q4H PRN wheezing 04/16/23 05/12/23 Unknown History aerosol inhaler (Ventolin HFA) aspirin 81 mg tablet,delayed 81 mg PO BEDTIME 04/16/23 05/12/23 05/11/23 History release atorvastatin 80 mg tablet 80 mg PO BEDTIME 04/16/23 05/12/23 05/11/23 History cholecalciferol (vitamin D3) 125 125 mcg PO DAILY 04/16/23 05/12/23 05/12/23 History mcg (5,000 unit) tablet (Vitamin D3) folic acid 1 mg tablet 1 mg PO SUMOTUTHFRSA@0900 04/16/23 05/12/23 05/12/23 Hist ory insulin glargine 100 unit/mL (3 60 unit subcut BEDTIME 04/16/23 05/12/23 05/11/23 History mL) subcutaneous pen (Lantus Solostar U-100 Insulin) krill [id number] 150 1 cap PO DAILY 04/16/23 05/12/23 05/12/23 History mg-450 mg capsule,delayed release lisinopril 10 1 tab PO DAILY 04/16/23 05/12/23 05/12/23 History mg-hydrochlorothiazide 12.5 mg tablet methotrexate sodium 2.5 mg tablet 20 mg PO WE@0900 04/16/23 05/12/23 05/07/23 History omeprazole 20 mg capsule,delayed 20 mg PO DAILY 04/16/23 05/12/23 05/12/23 History release insulin aspart U-100 100 unit/mL See Protocol subcut TIDAC 05/12/23 05/12/23 05/12/23 History (3 mL) subcutaneous pen Physical Exam Vital Signs and Narrative: Vital Signs: Last Vital Signs Temp 97.8 F 05/12/23 14:12 Pulse 53 05/12/23 14:12 Resp 16 05/12/23 14:12 BP 136/79 05/12/23 14:12 Pulse Ox 94 05/12/23 14:12 O2 Del Method Room Air 05/12/23 14:12 BMI result Body Mass Index 31.3 Appearing in no acute distress head is normocephalic atraumatic eyes pupils are PERRLA sclera is anicteric mouth throat mucous membranes are intact and moist neck is supple no lymphadenopathy, no JVD noted lung sounds are clear to auscultation heart regular rate rhythm, clear S1, S2 positive bowel sounds, abdomen is soft, nontender neuro patient is alert x3, no focal deficits Results Labs 05/12/23 11:18 05/12/23 11:18 Labs: Laboratory Results - last 24 hr 05/12/23 05/12/23 05/12/23 11:13 11:18 11:18 MCV 89.0 MCH 29.2 MCHC 32.9 RDW 14.2 Plt Count 231 MPV 11.5 Immature Gran % (Auto) 0.5 H Neut % (Auto) 65.7 Lymph % (Auto) 24.7 [place] % (Auto) 6.2 Eos % (Auto) 1.9 Baso % (Auto) 1.0 Lymph # (Auto) 1.9 [place] # (Auto) 0.5 Eos # (Auto) 0.2 Baso # (Auto) 0.1 Abs Immat Gran (auto) 0.04 H Absolute Neuts (auto) 5.1 Absolute Nucleated RBC 0.000 Nucleated RBC % (auto) 0.0 PT Whole Blood PT INR Whole Blood INR APTT Anion Gap 13 Estim Creat Clear Calc 74.5 Estimated GFR > 60 POC Glucose 199 H Random Glucose 202 H Calcium 10.1 Total Creatine Kinase 143 05/12/23 05/12/23 05/12/23 11:19 11:37 11:37 MCV MCH MCHC RDW Plt Count MPV Immature Gran % (Auto) Neut % (Auto) Lymph % (Auto) [place] % (Auto) Eos % (Auto) Baso % (Auto) Lymph # (Auto) [place] # (Auto) Eos # (Auto) Baso # (Auto) Abs Immat Gran (auto) Absolute Neuts (auto) Absolute Nucleated RBC Nucleated RBC % (auto) PT 10.4 L Whole Blood PT 11.7 INR 0.9 Whole Blood INR 1.0 APTT 25.5 L Anion Gap Estim Creat Clear Calc Estimated GFR POC Glucose 225 H Random Glucose Calcium Total Creatine Kinase Imaging Radiologist's Impressions: Impressions Head CT 05/12/23 11:26 IMPRESSION: No acute intracranial pathology. Head/Neck CTA 05/12/23 13:30 IMPRESSION: - There is a small age-indeterminate right striatocapsular infarct and there is a small age-indeterminate upper left putamen infarct that can be more definitively aged with MRI as indicated. Multiple lacunar infarcts within the deep escamilla nuclei bilaterally and the right cerebellum, likely chronic however difficult to definitively age without priors available for comparison. There is no mass effect and there is no intracranial hemorrhage. - No significant arterial stenoses and no acute arterial occlusions within the head or neck. Covering provider paged with these findings at 2:09 PM on May 12, 2023. I discussed the findings with Dr. Hankins at 2:14 PM on May 12, 2023. Assessment and Plan (1) Transient cerebral ischemia: Status: Acute Plan 63 year old man admitted with TIA, possible stroke TIA aphagia resolved head CTA>multiple infarcts noted, but unable to date,no stenosis or occlusion MRI, echo and PT ordered Neuro consult statin, check lipids in the morning DM2 ss, ada diet long acting insulin GERD PPI HTN stable hold antihypertensives for now DVT prophylaxis with SCD boots for now Full code OBS Time Spent With Patient Time: Total time managing care of this patient today ____ minutes. Quality Stroke Does the patient have a stroke diagnosis?: No VTE Prior VTE?: No VTE Risk Level:: Medical - moderate - high VTE Device Contraindication: N/A - Device Ordered VTE Drug Contraindication: Treatment Not Indicated
[2023-05-12] MEDS: 0.9 % Sodium Chloride Flush 3 ML SYRINGE IVFLUSH ×2 (16:00→23:41)
[2023-05-12 18:51] VITALS: BP 139/76; PULSE 58; RESP 16; TEMP 36.6; O2SAT 97
[2023-05-12 20:00] VITALS: BP 159/82; PULSE 55; RESP 18; TEMP 36.3; O2SAT 95
[2023-05-12] MEDS: Atorvastatin Calcium 80 MG TABLET PO (20:45)
[2023-05-12 20:52] LABS: Glucose, Whole Blood 104 mg/dL (60-115)
[2023-05-12 23:53] VITALS: BP 148/67; PULSE 57; RESP 16; TEMP 36.4; O2SAT 93
[2023-05-13 04:00] VITALS: BP 173/86; PULSE 57; RESP 15; TEMP 36.3; O2SAT 94
[2023-05-13] MEDS: Omeprazole 20 MG CAPSULE.DR PO (05:24)
--- NOTE | 2023-05-13 07:00 | CA_ITS ---
Transthoracic Echocardiogram Patient (Last, First, Middle): Sandeep Carrasquillo L Gender: Male Date of : 1960 Age: 63 Procedure Date: 05/13/2023 Procedure Type: Transthoracic Echocardiogram [place] [facility] [place]: 175.26 cm Weight: 99.79 kg BSA: 2.15 m2 Heart Rate: bpm Director Phone: KENDELL Referring MD: Paulina Painter NP Electrical Engineering Drafting Officer: eBnson Gauthier MD Symptoms: TIA, bubble done Study Quality: Adequate W Contrast ECG Rhythm: Sinus Conclusions: - 1. Normal LV systolic function with impaired relaxation filling pattern 2. Normal cardiac valvular Dopplers 3. No clear evidence of interatrial shunting 4. Mildly dilated ascending aorta at 3.7 cm 5. Normal RV systolic pressure 6. No pericardial effusion Findings Left Ventricle Normal left ventricular size, thickness, and systolic function. The visually estimated ejection fraction is between 60-65%. Spectral Doppler is indicative of an impaired relaxation filling pattern. E/E prime ratio is <8, consistent with normal filling pressures. Evidence suggests grade I (mild) diastolic dysfunction. Right Ventricle Normal right ventricular cavity size and systolic function. Atria Both atria are normal in size. There is no evidence of interatrial shunt by contrast. Aortic Valve The aortic valve structure and function is likely normal. There is no aortic valve stenosis. There is no aortic valve regurgitation. Mitral Valve Normal mitral valve structure and function. There is trace mitral valve regurgitation. There is no mitral valve stenosis. Pulmonic Valve The pulmonic valve is likely normal. Tricuspid Valve Normal tricuspid valve structure. There is trace tricuspid valve regurgitation. The right ventricular systolic pressure is normal. The right ventricular systolic pressure is 22 mmHg. Normal right atrial pressure. There is no evidence of pulmonary hypertension. Great Vessels The pulmonary artery was not well visualized. There is mild dilatation of the ascending aorta measuring 3.70 cm. Venous The inferior vena cava is normal in size and collapses greater than 50% with inspiration. Pericardium/Pleural There is no evidence of pericardial effusion. Prior Study Comparison No prior study available for comparison. Measurements 2D Linear Measurements IVSd: 1.23 0.6-0.9/0.6-1.0 cm LVIDd: 4.15 3.9-5.3/4.2-5.9 cm LVIDd Index: 1.93 2.4-3.2/2.2-3.1 cm/m2 LVIDs: 2.73 2.0-3.6 cm LVPWd: 1.24 0.7-1.1 cm Ao Root: 4.10 2.1-3.5 cm LA Diam: 4.30 2.7-3.8/3.0-4.0 cm LAIDs Index: 2.00 1.5-2.3 cm/m2 LV Mass: 227.39 67-162/88-224 g LV Mass Index: 105.76 43-95/49-115 g/m2 LVOT Diam: 2.30 3.0+(-)1.3 cm Mitral Valve MV Pk E: 0.64 MV PK A: 0.77 MV Decel Time: 243.00 E/A: 0.80 E'Lateral: 12.50 E'Medial: 5.87 E/E' Med: 11.00 E/E' Lat: 5.10 PHT: 71.00 MVA PHT: 3.10 Decel Bell: 2.65 Aortic Valve AoV Pk Anthony: 1.15 AoV Mn Anthony: 0.85 AoV VTI: 0.34 AoV Pk Grad: 5.00 Aov Mn Grad: 3.00 DANIA Cont.VTI: 3.12 LVOT LVOT Pk Anthony: 0.84 LVOT Mn Anthony: 0.54 LVOT VTI: 0.25 LVOT Pk Grad: 3.00 LVOT Mn Grad: 1.00 LVOT Diam: 2.30 LVOT Area: 4.15 Diastolic Function MV Pk E: 0.64 MV Pk A: 0.77 E/A: 0.80 E'Medial: 5.87 E/E' Med: 11.00 E' Laterial: 12.50 E/E' Lat: 5.10 Right Ventricle TAPSE (mm): 26.00 Tricuspid Valve TR Pk Anthony: 2.18 TR Pk Grad: 19.00 RA Press: 3.00 RVSP: 22.00 Great Vessels Aorta Ao Root-2D: 4.10 2.0-3.7 cm Ao Asc: 3.70 2.1-3.4 cm Pulmonary Valve PV Pk Anthony: 0.76 Peak PV Grad: 2.00 Updated in Other Vendor System with Status of Final Benson Gauthier MD electronically signed on 05/13/2023 1:47:07 PM with status of Final
[2023-05-13 07:19] LABS: MANUAL DIFF FLAG NO
[2023-05-13 07:28] LABS: Basophils Absolute Auto 0.1 X10*3/uL (0.0-0.2); Basophils Percent Auto 0.9 % (0-2); Eosinophils Absolute Auto 0.2 X10*3/uL (0.0-0.4); Eosinophils Percent Auto 1.6 % (0-4); Imm Gran Abs Auto 0.05 X10*3/uL (0.00-0.03); Imm Gran Pct Auto 0.5 % (0.0-0.4); Lymphocytes Absolute Auto 1.8 X10*3/uL (1.2-4.9); Lymphocytes Percent Auto 20.1 % (20-40); Mean Corpuscular HGB Conc 32.6 g/dl (31.0-36.0); Mean Corpuscular Hemoglobin 29.2 pg (27.0-33.0); Mean Corpuscular Volume 89.6 fL (80.0-98.0); Mean Platelet Volume 11.3 fL (9.4-12.4); Monocytes Absolute Auto 0.6 X10*3/uL (0.1-1.2); Monocytes Percent Auto 6.3 % (2-11); Neutrophils Absolute Auto 6.4 x10*3/uL (2.0-8.3); Neutrophils Percent Auto 70.6 % (45-73); Platelet Count 219 X10*3/uL (160-400); Red Cell Distribution Width 14.4 % (11.0-16.0); White Blood Count 9.1 X10*3/uL (4.8-10.8)
[2023-05-13 07:41] VITALS: BP 148/72; PULSE 60; RESP 20; TEMP 36.2; O2SAT 93
[2023-05-13 07:50] VITALS: BP 148/72; PULSE 60; O2SAT 93
[2023-05-13] MEDS: Folic Acid 1 MG TABLET PO (08:11)
[2023-05-13] MEDS: Cholecalciferol (Vitamin D3) 25 MCG TABLET 125 MCG PO (08:11)
[2023-05-13] MEDS: 0.9 % Sodium Chloride Flush 3 ML SYRINGE IVFLUSH ×2 (08:12→16:51)
[2023-05-13 08:17] LABS: Alanine Aminotransferase 47 U/L (0-40); Albumin Level 3.9 g/dL (3.5-5.0); Alkaline Phosphatase 73 U/L (39-117); Anion Gap 11 (12-20); Aspartate Amino Transferase 23 U/L (5-37); Bilirubin Total 0.6 mg/dL (0.0-1.0); Blood Urea Nitrogen 15 mg/dL (9-16); Calcium 9.7 mg/dL (8.4-10.2); Carbon Dioxide 29 mmol/L (22-29); Chloride 103 mmol/L (96-108); Cholesterol 123 mg/dL; Creatinine Clr Calc Pharmacy 70.8; Estimated Glomerular Filt Rate 60; Glucose Random 174 mg/dL (60-115); HDL Cholesterol 45 mg/dL; LDL Cholesterol Calculated 61 mg/dl; Sodium 139 mmol/L (135-145); Total Protein 6.3 g/dL (6.5-8.0); Triglycerides 88 mg/dL
[2023-05-13 08:20] LABS: Glucose, Whole Blood 173 mg/dL (60-115)
[2023-05-13] MEDS: Insulin Lispro 100 UNIT/ML 3 ML VIAL SUBCUT ×4 (09:33→21:20)
[2023-05-13] MEDS: Acetaminophen 325 MG TABLET 650 MG PO (09:33)
[2023-05-13 10:45] VITALS: BP 143/68; PULSE 56; RESP 20; TEMP 36.7; O2SAT 93
[2023-05-13 11:05] LABS: Glucose, Whole Blood 370 mg/dL (60-115)
--- NOTE | 2023-05-13 11:42 | MHC.CM.PN ---
SMALL 05/13. IMM 05/13. Pt changed from observation to inpatient and is admitted with dx TIA. Pt lives at home with his daughter and grandsons, he uses a cane. Pt states he has no services, but his daughter helps him. D/C plan to return home likely with new VNA vs STR. Transport is his ex-spouse/HCP Eunice if home, BLS/Jj if STR. HCP on file. PCP: Rodolfo GRIFFIN vax: x 3
--- NOTE | 2023-05-13 12:45 | MHC.STROKE ---
05/12/23 1045 EMS [facility] PRE-NOTIFIED STROKE ALERT. I MET PATIENT IN THE ED, C/O SLURRED SPEECH, HE SAID HIS ONSET WAS 05/11/23 AT 1800, HIS DAUGHTER NOTICED HIS SPEECH WAS SLURRED. HIS BS AT HOME THIS AM WAS 60. I MET WITH THE PATIENT IN THE ed AND HIS SYMPTOMS HAD RESOLVED. NIHSS = 0. TODAY I MET WITH THE PATIENT AND HIS SO, I PROVIDED STROKE EDUCATION AND REVIEWED THE PLAN OF CARE. ALL STROKE MEASURES MET, HE IS UP AMBULATION AND REFUSES THE VTE BOOTS. I DID REPORT THIS THE PROVIDER. I ANSWERED ALL OF THEIR QUESTIONS. NEUROLOGY CONSULT PENDING.
--- NOTE | 2023-05-13 14:38 | P.PNIM_ITS ---
Subjective Subjective Date of Service: 05/13/23 Review of Systems Follow-up stroke Symptoms resolved Physical Exam Vital Signs: Vital Signs: Last Vital Signs Temp 98.1 F 05/13/23 10:45 Pulse 56 05/13/23 10:45 Resp 20 05/13/23 10:45 BP 143/68 H 05/13/23 10:45 Pulse Ox 93 05/13/23 10:45 O2 Del Method Room Air 05/13/23 10:45 BMI result Body Mass Index 31.3 Appearing in no acute distress lung sounds are clear to auscultation heart regular rate rhythm, clear S1, S2 positive bowel sounds, abdomen is soft, nontender neuro patient is alert x3, no focal deficits Objective Data Active Medications Acetaminophen (Acetaminophen 325 Mg Tablet) 650 mg PO Q6H PRN PRN Reason: Pain, Mild (Pain Scale 1-3) Last Admin: 05/13/23 09:33 Dose: 650 mg Documented By: BRADLEY Albuterol Sulfate (Albuterol Sulfate 90 Mcg 8 Gm Inhaler) 2 puff INHALE Q4H PRN PRN Reason: wheezing Atorvastatin Calcium (Atorvastatin Calcium 80 Mg Tablet) 80 mg PO BEDTIME [facility] Last Admin: 05/12/23 20:45 Dose: 80 mg Documented By: QUETA Dextrose (Dextrose 50 % 25 Gm/50 Ml Syringe) 25 gm IVPUSH Q15M PRN; Protocol PRN Reason: per Hypoglycemia Standing Ord. Folic Acid (Folic Acid 1 Mg Tablet) 1 mg PO SUMOTUTHFRSA@0900 [facility] Last Admin: 05/13/23 08:11 Dose: 1 mg Documented By: BRADLEY Glucose (Glucose Gel 15 Gm Gel..Gram.) 15 gm PO Q15M PRN; Protocol PRN Reason: per Hypoglycemia Standing Ord. Insulin Glargine (Insulin Glargine,Hum.Rec.Anlog 100 Unit/Ml 10 Ml Vial) 60 unit SUBCUT BEDTIME [facility] Last Admin: 05/12/23 20:46 Dose: Not Given Documented By: QUETA Non-Admin Reason: No Insulin Coverage Comments: poc 104; aware; hold lantus Insulin Human Lispro (Insulin Lispro 100 Unit/Ml 3 Ml Vial) 0 unit SUBCUT QIDACHS [facility]; Protocol Methotrexate (Methotrexate Sodium 2.5 Mg Tablet) 20 mg PO WE@0900 [facility] Omeprazole (Omeprazole 20 Mg Capsule.Dr) 20 mg PO DAILY@0630 [facility] Last Admin: 05/13/23 05:24 Dose: 20 mg Documented By: TAPAN Ondansetron HCl (Ondansetron Hcl 4 Mg/2 Ml Vial) 4 mg IVPUSH Q8H PRN PRN Reason: Nausea and Vomiting Sodium Chloride (0.9 % Sodium Chloride Flush 3 Ml Syringe) 3 ml IVFLUSH QSHIFT [facility] Last Admin: 05/13/23 08:12 Dose: 3 ml Documented By: BRADLEY Vitamin D (Cholecalciferol (Vitamin D3) 25 Mcg Tablet) 125 mcg PO DAILY [facility] Last Admin: 05/13/23 08:11 Dose: 125 mcg Documented By: BRADLEY Labs 05/13/23 07:15 05/13/23 07:15 Labs: Laboratory Results - last 24 hr 05/12/23 05/13/23 05/13/23 20:17 07:15 07:15 MCV 89.6 MCH 29.2 MCHC 32.6 RDW 14.4 Plt Count 219 MPV 11.3 Immature Gran % (Auto) 0.5 H Neut % (Auto) 70.6 Lymph % (Auto) 20.1 [place] % (Auto) 6.3 Eos % (Auto) 1.6 Baso % (Auto) 0.9 Lymph # (Auto) 1.8 [place] # (Auto) 0.6 Eos # (Auto) 0.2 Baso # (Auto) 0.1 Abs Immat Gran (auto) 0.05 H Absolute Neuts (auto) 6.4 Absolute Nucleated RBC 0.000 Nucleated RBC % (auto) 0.0 Anion Gap 11 L Estim Creat Clear Calc 70.8 Estimated GFR 60 POC Glucose 104 Random Glucose 174 H Calcium 9.7 Total Bilirubin 0.6 AST 23 ALT 47 H Alkaline Phosphatase 73 Total Protein 6.3 L Albumin 3.9 Triglycerides 88 Cholesterol 123 LDL Cholesterol, Calc 61 HDL Cholesterol 45 05/13/23 05/13/23 08:09 10:46 MCV MCH MCHC RDW Plt Count MPV Immature Gran % (Auto) Neut % (Auto) Lymph % (Auto) [place] % (Auto) Eos % (Auto) Baso % (Auto) Lymph # (Auto) [place] # (Auto) Eos # (Auto) Baso # (Auto) Abs Immat Gran (auto) Absolute Neuts (auto) Absolute Nucleated RBC Nucleated RBC % (auto) Anion Gap Estim Creat Clear Calc Estimated GFR POC Glucose 173 H 370 H* Random Glucose Calcium Total Bilirubin AST ALT Alkaline Phosphatase Total Protein Albumin Triglycerides Cholesterol LDL Cholesterol, Calc HDL Cholesterol Assessment and Plan (1) Transient cerebral ischemia: Status: Acute Plan 63 year old man admitted with stroke Stroke aphagia resolved head CTA>multiple infarcts noted, but unable to date,no stenosis or occlusion? MRI showed small acute lacunar infarct in the left putamen Normal echo bubble study Neuro consult pending Normal lipids DM2 ss, ada diet long acting insulin GERD PPI HTN stable Initially held, May continue antihypertensives DVT prophylaxis with SCD boots for now Attending Dr. Cordon Full code DISPO dc home when medically clear Patient requires continued hospitalization due to for treatment of stroke, pending specialty consultation by Neurology Time Spent With Patient Time: Total time managing care of this patient today ____ minutes. Quality Stroke Does the patient have a stroke diagnosis?: No VTE Prior VTE?: No VTE Risk Level:: Medical - moderate - high VTE Device Contraindication: N/A - Device Ordered VTE Drug Contraindication: Treatment Not Indicated
--- NOTE | 2023-05-13 15:24 | PM.DS ---
DS: Providers Provider Date of Service: 05/14/23 Date of admission: 05/13/23 09:43 Primary care physician: Unknown Physician Consults: 05/12/23 15:48 Consult to Neurology Routine Consulting Provider: [facility] Reason for consultation: TIA DS: Diagnosis Discharge Diagnosis (1) Transient cerebral ischemia: Status: Acute DS: Summary Hospital Course Hospital Course: 63 year old man presenting with aphagia that started last night. He denied chest pain, sob, visual changes, facial droop, fall, headache. Apparently had a stroke after the JJ vaccine.? At this time his symptoms have resolved . Labs all within acceptable limits, vital signs stable.? Head and neck CTA showing multiple infarctions but unable to date.? In the ER, patient received Tylenol, Zofran and albuterol.? He will be admitted for further management and treatment of possible TIA/stroke 63-year-old man treated for acute stroke. MRI showed small acute lacunar infarct in the left putamen with multiple chronic lacunar infarcts in the bilateral lobe deep white matter. Patient's symptoms of aphasia resolved. He was continued on high-dose aspirin and statin. Normal echocardiogram bubble study. Seen and evaluated by Neurology with recommendation for strict blood pressure and blood sugar control. Diabetes mellitus type 2. Continue home medications. Follow blood sugars closely to avoid hyperglycemia GERD. Continue PPI Hypertension. Continue home medications and follow blood pressure close to avoid hypertension Time Spent with Patient Time attestation: Total time managing care of this patient today ____ minutes. Discharge coordination time: Greater than 30 minutes Quality: Safe Use of Opioids Does Pt have an Active Cancer Diagnosis on the Problem List?: No Quality: Stroke Does the patient have a stroke diagnosis?: Yes Reason for No Anti-thrombotic at DC: N/A - Med Ordered Reason for No Anticoagulant at DC: Drug treatment not indicated Reason Not Initiating IV-Tpa: Drug treatment not indicated Reason for No Anti-thrombotic by Day Two: N/A - Med Ordered Reason for No Statin at DC: N/A - Med Ordered Physical Exam Vital Signs: Vital Signs: Last Vital Signs Temp 98.1 F 05/13/23 10:45 Pulse 56 05/13/23 10:45 Resp 20 05/13/23 10:45 BP 143/68 H 05/13/23 10:45 Pulse Ox 93 05/13/23 10:45 O2 Del Method Room Air 05/13/23 10:45 BMI result Body Mass Index 31.3 Appearing in no acute distress head is normocephalic atraumatic eyes pupils are PERRLA sclera is anicteric mouth throat mucous membranes are intact and moist neck is supple no lymphadenopathy, no JVD noted lung sounds are clear to auscultation heart regular rate rhythm, clear S1, S2 positive bowel sounds, abdomen is soft, nontender neuro patient is alert x3, no focal deficits DS: Data Data Completed and Pending Labs on day of discharge: Laboratory Results - last 24 hr 05/12/23 05/13/23 05/13/23 20:17 07:15 07:15 WBC 9.1 RBC 4.80 Hgb 14.0 Hct 43.0 MCV 89.6 MCH 29.2 MCHC 32.6 RDW 14.4 Plt Count 219 MPV 11.3 Immature Gran % (Auto) 0.5 H Neut % (Auto) 70.6 Lymph % (Auto) 20.1 Preston % (Auto) 6.3 Eos % (Auto) 1.6 Baso % (Auto) 0.9 Lymph # (Auto) 1.8 Preston # (Auto) 0.6 Eos # (Auto) 0.2 Baso # (Auto) 0.1 Abs Immat Gran (auto) 0.05 H Absolute Neuts (auto) 6.4 Absolute Nucleated RBC 0.000 Nucleated RBC % (auto) 0.0 Sodium 139 Potassium 4.0 Chloride 103 Carbon Dioxide 29 Anion Gap 11 L BUN 15 Creatinine 1.22 Estim Creat Clear Calc 70.8 Estimated GFR 60 POC Glucose 104 Random Glucose 174 H Calcium 9.7 Total Bilirubin 0.6 AST 23 ALT 47 H Alkaline Phosphatase 73 Total Protein 6.3 L Albumin 3.9 Triglycerides 88 Cholesterol 123 LDL Cholesterol, Calc 61 HDL Cholesterol 45 05/13/23 05/13/23 08:09 10:46 WBC RBC Hgb Hct MCV MCH MCHC RDW Plt Count MPV Immature Gran % (Auto) Neut % (Auto) Lymph % (Auto) Preston % (Auto) Eos % (Auto) Baso % (Auto) Lymph # (Auto) Preston # (Auto) Eos # (Auto) Baso # (Auto) Abs Immat Gran (auto) Absolute Neuts (auto) Absolute Nucleated RBC Nucleated RBC % (auto) Sodium Potassium Chloride Carbon Dioxide Anion Gap BUN Creatinine Estim Creat Clear Calc Estimated GFR POC Glucose 173 H 370 H* Random Glucose Calcium Total Bilirubin AST ALT Alkaline Phosphatase Total Protein Albumin Triglycerides Cholesterol LDL Cholesterol, Calc HDL Cholesterol Discharge Plan Discharge Anticipated Discharge Date/Time: 05/14/23 07:26 Patient Disposition: Home Health Service Discharge Diagnosis: Stroke Discharge Medications: Continued atorvastatin 80 mg tablet 80 mg PO BEDTIME aspirin 81 mg Tablet,Delayed Release (Dr/Ec) 81 mg PO BEDTIME methotrexate sodium 2.5 mg tablet 20 mg PO WE@0900 Rx Instructions: every friday omeprazole 20 mg capsule,delayed release(DR/EC) 20 mg PO DAILY folic acid 1 mg tablet 1 mg PO SUMOTUTHFRSA@0900 lisinopril-hydrochlorothiazide 10-12.5 mg tablet 1 tab PO DAILY albuterol sulfate [Ventolin HFA] 90 mcg/actuation HFA aerosol inhaler 2 puff inhalation Q4H PRN (Reason: wheezing) insulin glargine [Lantus Solostar U-100 Insulin] 100 unit/mL (3 mL) insulin pen 60 unit subcut BEDTIME cholecalciferol (vitamin D3) [Vitamin D3] 125 mcg (5,000 unit) Tablet 125 mcg PO DAILY krill [id number]-epa 150-450 mg Capsule,Delayed Release(Dr/Ec) 1 cap PO DAILY acetaminophen 500 mg Tablet 1,000 mg PO DAILY insulin aspart U-100 100 unit/mL (3 mL) insulin pen See Protocol subcut TIDAC Protocol: Insulin Correction Scale Less than or equal to 110 ---- Give (units): 0 111 to 150 Give (units): 0 151 to 200 Give (units): 2 201 to 250 Give (units): 4 251 to 300 Give (units): 6 301 to 350 Give (units): 8 Greater than 350 Give (units): 10 Call MD if Blood Glucose > : 350 Discharge Orders: Discharge Order (Routine); Ordered 05/14/23 Ordered By: Paulina Painter Diet: Advance to usual diet Activity on Discharge: As tolerated Stand Alone Forms: Patient Portal Discharge page Care Plan Goals: Blood pressure and blood sugar stabilization Health Concerns: Stroke Plan of Treatment: Follow-up with primary care provider as needed Take all medications as prescribed Monitor blood pressure closely to avoid long episodes of high blood pressure Monitor your blood sugar closely to avoid long episodes of hyperglycemia Assessment: See discharge summary
[2023-05-13 16:00] VITALS: BP 155/79; PULSE 59; RESP 16; TEMP 36.9; O2SAT 97
--- NOTE | 2023-05-13 16:47 | PM.NEUROCN ---
History of Present Illness Data of Consult Service Date: 05/13/23 Primary Care Provider: Unknown Physician HPI Reason for consult: transient speech problem This is a 63 year old man with multiple stroke risk factors- HBP, HLD, DM, presented with transient stuttering of speech for 2 days. All Sx resolved. He denied chest pain, sob, visual changes, facial droop, fall, headache. Apparently had a stroke after the JJ vaccinethat left him with a slightly dysarthric speech.?Labs all within normal limits, vital signs stable.? Head and neck CTA showing multiple old lacunar infarctions and MRI shows an acute small left putaminal stroke. CTA of head and neck shows no occlusive disease Review of Systems Review of Systems: Follow-up stroke Symptoms resolved Yes all other systems are reviewed and are negative Neurologic: Denies Sensory deficit (Neuro) [facility] Past Medical History Medical History (Updated 05/13/23 @ 17:03 by Tanja Natarajan MD) Asthma CVA (cerebral vascular accident) Diabetes Diverticulosis GERD (gastroesophageal reflux disease) Glaucoma HTN (hypertension) Hyperlipidemia Intraparenchymal hemorrhage of brain Legionnaires' disease Obesity, Class I, BMI 30.0-34.9 (see actual BMI) Psoriatic arthritis Skin cancer Tubular adenoma Surgical History Surgical History History of partial colectomy Hx of melanoma excision Social History Social History Are you a primary care manager cna to a significant other at home: No Do you presently have visiting nurse or other home services: No Patient Tobacco Use Status: Never used Tobacco Advance Directives: No Advance Directives Information Provided: No Meds Allergies Allergy/AdvReac Type Severity Reaction Status Date / Time No Known Allergies Allergy Verified 04/21/23 09:55 Active Medications: Current Medications Acetaminophen (Acetaminophen 325 Mg Tablet) 650 mg PO Q6H PRN PRN Reason: Pain, Mild (Pain Scale 1-3) Last Admin: 05/13/23 09:33 Dose: 650 mg Albuterol Sulfate (Albuterol Sulfate 90 Mcg 8 Gm Inhaler) 2 puff INHALE Q4H PRN PRN Reason: wheezing Atorvastatin Calcium (Atorvastatin Calcium 80 Mg Tablet) 80 mg PO BEDTIME FUNMILAYO Last Admin: 05/12/23 20:45 Dose: 80 mg Dextrose (Dextrose 50 % 25 Gm/50 Ml Syringe) 25 gm IVPUSH Q15M PRN; Protocol PRN Reason: per Hypoglycemia Standing Ord. Folic Acid (Folic Acid 1 Mg Tablet) 1 mg PO SUMOTUTHFRSA@0900 [facility] Last Admin: 05/13/23 08:11 Dose: 1 mg Glucose (Glucose Gel 15 Gm Gel..Gram.) 15 gm PO Q15M PRN; Protocol PRN Reason: per Hypoglycemia Standing Ord. Heparin Sodium (Porcine) (Heparin Sodium,Porcine 5,000 Unit/Ml Vial) 5,000 unit SUBCUT Q12H [facility] Hydrochlorothiazide (Hydrochlorothiazide 12.5 Mg Tablet) 12.5 mg PO DAILY [facility]; Protocol Insulin Glargine (Insulin Glargine,Hum.Rec.Anlog 100 Unit/Ml 10 Ml Vial) 60 unit SUBCUT BEDTIME [facility] Last Admin: 05/12/23 20:46 Dose: Not Given Insulin Human Lispro (Insulin Lispro 100 Unit/Ml 3 Ml Vial) 0 unit SUBCUT QIDACHS [facility]; Protocol Lisinopril (Lisinopril 10 Mg Tablet) 10 mg PO DAILY [facility]; Protocol Methotrexate (Methotrexate Sodium 2.5 Mg Tablet) 20 mg PO WE@0900 [facility] Omeprazole (Omeprazole 20 Mg Capsule.Dr) 20 mg PO DAILY@0630 [facility] Last Admin: 05/13/23 05:24 Dose: 20 mg Ondansetron HCl (Ondansetron Hcl 4 Mg/2 Ml Vial) 4 mg IVPUSH Q8H PRN PRN Reason: Nausea and Vomiting Sodium Chloride (0.9 % Sodium Chloride Flush 3 Ml Syringe) 3 ml IVFLUSH QSHIFT [facility] Last Admin: 05/13/23 08:12 Dose: 3 ml Vitamin D (Cholecalciferol (Vitamin D3) 25 Mcg Tablet) 125 mcg PO DAILY [facility] Last Admin: 05/13/23 08:11 Dose: 125 mcg Home Medications Medication Instructions Recorded Confirmed Last Taken Type acetaminophen 500 mg tablet 1,000 mg PO DAILY 04/16/23 05/12/23 05/12/23 History albuterol sulfate 90 mcg/actuation 2 puff inhalation Q4H PRN wheezing 04/16/23 05/12/23 Unknown History aerosol inhaler (Ventolin HFA) aspirin 81 mg tablet,delayed 81 mg PO BEDTIME 04/16/23 05/12/23 05/11/23 History release atorvastatin 80 mg tablet 80 mg PO BEDTIME 04/16/23 05/12/23 05/11/23 History cholecalciferol (vitamin D3) 125 125 mcg PO DAILY 04/16/23 05/12/23 05/12/23 History mcg (5,000 unit) tablet (Vitamin D3) folic acid 1 mg tablet 1 mg PO SUMOTUTHFRSA@0900 04/16/23 05/12/23 05/12/23 History insulin glargine 100 unit/mL (3 60 unit subcut BEDTIME 04/16/23 05/12/23 05/11/23 History mL) subcutaneous pen (Lantus Solostar U-100 Insulin) krill [id number]-epa 150 1 cap PO DAILY 04/16/23 05/12/23 05/12/23 History mg-450 mg capsule,delayed release lisinopril 10 1 tab PO DAILY 04/16/23 05/12/23 05/12/23 History mg-hydrochlorothiazide 12.5 mg tablet methotrexate sodium 2.5 mg tablet 20 mg PO WE@0900 04/16/23 05/12/23 05/07/23 History omeprazole 20 mg capsule,delayed 20 mg PO DAILY 04/16/23 05/12/23 05/12/23 History release insulin aspart U-100 100 unit/mL See Protocol subcut TIDAC 05/12/23 05/12/23 05/12/23 History (3 mL) subcutaneous pen Physical Exam Vital Signs: Vital Signs: Last Vital Signs Temp 98.1 F 05/13/23 10:45 Pulse 56 05/13/23 10:45 Resp 20 05/13/23 10:45 BP 143/68 H 05/13/23 10:45 Pulse Ox 93 05/13/23 10:45 O2 Del Method Room Air 05/13/23 10:45 BMI result Body Mass Index 31.3 Const: General: healthy appearing Nutritional Appearance: average body habitus Orientation/consciousness: oriented to person and patient oriented x3 Limitations: no limitations HEENT: Head: Yes normal to inspection Ears: external ears normal General nose exam: Normal external nose present Mouth: Normal oral and palatal mucosa present and oropharynx normal Throat: Yes posterior oropharynx normal Eyes: General: appearance normal, both eyes and all related structures Neck: Other: supple Neck: Yes normal visual inspection Chest: Chest palpation & inspection: normal inspection of the chest Resp: Auscultation: clear to auscultation bilaterally Cardio: Jugular venous distension: no JVD Rate: regular rate Rhythm: regular rhythm Heart sounds: S1 normal heart sound present and S2 normal heart sound present GI: Inspection: Yes normal to inspection Palpation (GI): Soft to palpation, nontender and No hepatosplenomegaly present Auscultation: normal bowel sounds : General: Yes no CVA tenderness Back/Spine/Pelvis: Back: no CVA tenderness Skin: General skin exam: no rashes or lesions noted Neuro: Other: Mild dysarthria, otherwise non focal exam. General: oriented to person and patient oriented x3 Cranial nerves: Yes CN's II-XII intact bilaterally Motor exam (neuro): 5/5 motor strength present throughout Sensory Exam: No Sensory deficit (Neuro) Extrem: General: Yes normal to inspection Psych: Appearance: grossly normal Results Labs 05/13/23 07:15 05/13/23 07:15 Labs: Short CBC 05/13/23 Range/Units 07:15 WBC 9.1 (4.8-10.8) X10*3/uL Hgb 14.0 (14.0-18.0) g/dl Hct 43.0 (42.0-52.0) % Plt Count 219 (160-400) X10*3/uL BMP 05/13/23 07:15 Sodium 139 Potassium 4.0 Chloride 103 Carbon Dioxide 29 BUN 15 Creatinine 1.22 Calcium 9.7 Liver Function 05/13/23 Range/Units 07:15 Total Bilirubin 0.6 (0.0-1.0) mg/dL AST 23 (5-37) U/L ALT 47 H (0-40) U/L Alkaline Phosphatase 73 (39-117) U/L Albumin 3.9 (3.5-5.0) g/dL Assessment and Plan (1) CVA (cerebral vascular accident): Status: Acute Small lacunar infarct in left basal ganglia due to small vessel disease. Multiple old lacunar infarcts bilaterally. Recom: Strict control of BP and sugar. Continue aspirin 81mg and atorvastatin. Ok to discharge (2) Transient cerebral ischemia: Status: Acute Plan 63 year old man admitted with stroke Stroke aphagia resolved head CTA>multiple infarcts noted, but unable to date,no stenosis or occlusion? MRI showed small acute lacunar infarct in the left putamen Normal echo bubble study Neuro consult pending Normal lipids DM2 ss, ada diet long acting insulin GERD PPI HTN stable Initially held, May continue antihypertensives DVT prophylaxis with SCD boots for now Attending Dr. Cordon Full code DISPO dc home when medically clear Patient requires continued hospitalization due to for treatment of stroke, pending specialty consultation by Neurology Time Spent With Patient Time: Total time managing care of this patient today ____ minutes. Procedures Date of Service Date of Service: 05/13/23
[2023-05-13 16:51] LABS: Glucose, Whole Blood 330 mg/dL (60-115)
[2023-05-13] MEDS: Heparin Sodium,Porcine 5,000 UNIT/ML VIAL 5000 UNIT SUBCUT (17:20)
[2023-05-13 19:20] VITALS: BP 155/71; PULSE 59; RESP 16; TEMP 36.2; O2SAT 92
[2023-05-13 20:22] LABS: Glucose, Whole Blood 292 mg/dL (60-115)
[2023-05-13] MEDS: Insulin Glargine,Hum.rec.anlog 100 UNIT/ML 10 ML VIAL 60 UNIT SUBCUT (21:20)
[2023-05-13] MEDS: Atorvastatin Calcium 80 MG TABLET PO (21:20)
[2023-05-14] VITALS: BP 148/72; PULSE 71; RESP 16; TEMP 36.4; O2SAT 94
[2023-05-14] MEDS: 0.9 % Sodium Chloride Flush 3 ML SYRINGE IVFLUSH ×2 (01:22→07:49)
[2023-05-14 04:00] VITALS: BP 169/73; PULSE 65; RESP 15; TEMP 36.4; O2SAT 96
[2023-05-14] MEDS: Heparin Sodium,Porcine 5,000 UNIT/ML VIAL 5000 UNIT SUBCUT (05:45)
[2023-05-14] MEDS: Omeprazole 20 MG CAPSULE.DR PO (05:46)
[2023-05-14 07:11] VITALS: BP 154/81; PULSE 63; RESP 20; TEMP 37.1; O2SAT 96
[2023-05-14 07:43] LABS: Glucose, Whole Blood 174 mg/dL (60-115)
[2023-05-14] MEDS: Insulin Lispro 100 UNIT/ML 3 ML VIAL SUBCUT (07:48)
[2023-05-14] MEDS: Cholecalciferol (Vitamin D3) 25 MCG TABLET 125 MCG PO (07:48)
[2023-05-14] MEDS: lisinopriL 10 MG TABLET PO (07:48)
[2023-05-14] MEDS: hydroCHLOROthiazide 12.5 MG TABLET PO (07:49)
[2023-05-14] MEDS: metHOTREXate sodium 2.5 MG TABLET 20 MG PO (09:46)
--- NOTE | 2023-05-14 09:52 | W.MHC.F2F ---
Service Date Service Date: 05/14/23 Encounter Date of encounter: 05/14/23 Reasons for Services Signs and symptoms assessed: Stroke Reason for long-term: teach disease management Reason for physical therapy: home safety and mobility and gait/transfer training Homebound: Leaving the home is medically contraindicated at this time without the asist of a device and/or another person due th the listed conditions above and below. Reason homebound: unsteady gait / fall risk Certification: Based on the above findings, I certify that this patient is confined to the home and needs intermittent long-term care, physical therapy and/or speech therapy, or continues to need occupational therapy. The patient is under my care, and I have initiated the establishment of the plan of care. The patient will be followed by a physician who will periodically review the plan of care. Time Spent With Patient Time: Total time managing care of this patient today ____ minutes.
--- NOTE | 2023-05-14 11:41 | MHC.CM.PN ---
Pt medically cleared for D/C home with new [facility] ([facility]). Pts ex-/HCP to trasort.
== END 2023-05-14 10:35 | disposition home health service (06) | DRG 45 ==
LOC: HO.ED 13:19 → HO.EDOVER 15:50 → HO.IMC 19:00
PROVIDERS: Admitting Provider Nurse Practitioner Acute Care; Emergency Provider Emergency Medicine; PCP Internal Medicine Cardiovascular Disease; Visit Provider Nurse Practitioner Acute Care
DX: I63.81 Other cerebral infarction due to occlusion or stenosis of small artery (principal); R47.01 Aphasia; E78.5 Hyperlipidemia, unspecified; K21.9 Gastro-esophageal reflux disease without esophagitis; E11.9 Type 2 diabetes mellitus without complications; R29.700 NIHSS score 0; R47.81 Slurred speech; Z86.73 Personal history of transient ischemic attack (TIA), and cerebral infarction without residual deficits; Z79.4 Long term (current) use of insulin; Z79.82 Long term (current) use of aspirin; Z79.631 Long term (current) use of antimetabolite agent; Z79.899 Other long term (current) drug therapy
CPT/HCPCS: 36415; 70450; 70496; 70498; 70551; 80048; 80053; 80061; 82550; 82947; 84484; 85025; 85610; 85730; 93005; 93306; 97162; 99222; 99285; J1643; Q9957; Q9967

== ENCOUNTER → 2023-05-12 11:08 | Outpatient (BNV) | payer OTHER, SELFPAY | PROVIDERS: Admitting Provider Nurse Practitioner Acute Care; Emergency Provider Emergency Medicine; Visit Provider Internal Medicine Cardiovascular Disease | DX: I63.9 Cerebral infarction, unspecified (principal) | CPT/HCPCS: 93010 ==

== ENCOUNTER → 2023-05-13 07:00 | Outpatient (BNV) | payer OTHER, SELFPAY | PROVIDERS: Admitting Provider Nurse Practitioner Acute Care; Emergency Provider Emergency Medicine; Visit Provider Internal Medicine Cardiovascular Disease | DX: I51.9 Heart disease, unspecified (principal) | CPT/HCPCS: 93306 ==

== ENCOUNTER → 2023-05-13 09:43 | Outpatient (BNV) | payer OTHER, SELFPAY | PROVIDERS: Admitting Provider Nurse Practitioner Acute Care; Emergency Provider Emergency Medicine; Visit Provider Nurse Practitioner Acute Care | DX: G45.9 Transient cerebral ischemic attack, unspecified (principal) | CPT/HCPCS: 99222; 99232; 99239; G0180 ==

== ENCOUNTER 2023-05-26 10:10 | Day surgery (SDC) | payer OTHER, SELFPAY ==
--- NOTE | 2023-05-21 | OP_ITS ---
SURGEON: Hood Cabrera MD PREOPERATIVE DIAGNOSIS: POSTOPERATIVE DIAGNOSIS: PROCEDURE PERFORMED: Bleb revision. ESTIMATED BLOOD LOSS: COMPLICATIONS: ANESTHESIA: Local with MAC. ASSISTANTS: SPECIMENS: INDICATION FOR SURGERY: Hypotony and iris incarceration and the wound. POSTOPERATIVE DIAGNOSES: Hypotony and iris incarceration and the wound. DESCRIPTION OF PROCEDURE: After obtaining informed consent, the patient was brought to the operating room suite and placed in the supine position. After anesthesia, sedation, the eye was prepped and draped. A lid speculum was placed and the microscope was positioned over the left eye, the MPF lidocaine 1% was injected into the bleb, followed by resection of bleb off the sclera. Attention was directed to the trabeculectomy site. Viscoelastic was then utilized to gently redeposit the iris back into the left eye. Scissors were used to create iridectomy followed by sutures placed in the scleral wound. Intracameral injection of followed Vigamox 0.1% was completed. The conjunctiva was closed overlying the revised trabeculectomy site. The patient tolerated the procedure well and he will be seen in followup. MD RONY Rodriguez/MODL / [id number] MTDD
--- NOTE | 2023-05-23 08:29 | MHC.SHP ---
Pre-Procedural Eval Section A Date of Service: 05/23/23 The patient is an INPATIENT: No Changes since office visit: No Cold of Flu in the past 2 weeks, No New Medical Problems, No Changes in Medication and No Patient answered all questions The History & Physical has been completed within 30 days and I have reviewed it.: Yes Section B Chief Complaint: Other specified disorders of iris and ciliary body Allergies: Allergies Allergy/AdvReac Type Severity Reaction Status Date / Time No Known Allergies Allergy Verified 04/21/23 09:55 Plan Diagnosis/Plan: Unchanged I have reviewed the history and physical and performed a pertinent physical examination on my patient. No changes have occurred unless specified. Time Spent With Patient Time: Total time managing care of this patient today ____ minutes.
--- NOTE | 2023-05-23 09:43 | P.CONAN_ITS ---
Documented by User: Libia Alvarez NP 05/23/23 12:01 HPI - Anesthesia Eval Consult details Narrative: 63yo M for Iris repositioning and BLEB REPAIR/REVISION s/p Left cataract 03/2023 with MAC: No medications noted on anesthesia record CVA 05/12/23. Pt presented to [facility] with aphasia. Prior CVA x 2 (2019, 2020) MRI revealed small acute lacunar infarct with multiple chronic lacunar infarcts. Aphasia resolved. Neuro eval recommend strict medical management of blood pressure and DM. Preop eval done 05/22/[address] [facility]. Due to risk of loss of vision, ok to proceed if all other treatments exhausted. Recommend close monitoring with Neuro checks. No interruption of medication. High risk for resurgence of stroke symptoms/TIA/CVA. Case reviewed with Dr Oralia FRANCES Past Medical History Medical History (Updated 05/26/23 @ 10:31 by Jonelle Matthews, RN) Asthma CVA (cerebral vascular accident) Diabetes Diverticulosis GERD (gastroesophageal reflux disease) Glaucoma HTN (hypertension) Hyperlipidemia Intraparenchymal hemorrhage of brain Legionnaires' disease Obesity, Class I, BMI 30.0-34.9 (see actual BMI) Psoriatic arthritis Skin cancer Transient cerebral ischemia Tubular adenoma Family History Family history of problems with anesthesia: No Surgical History Surgical History History of partial colectomy Hx of melanoma excision History of Problems with Anesthesia: No Social History Social History Are you a primary adult daycare coordinator to a significant other at home: No Do you presently have visiting nurse or other home services: No Patient Tobacco Use Status: Never used Tobacco Use of substances other than those prescribed or required for medical reasons: No Are you DNR?: No Advance Directives: No Advance Directives Information Provided: Yes Meds Allergies Allergy/AdvReac Type Severity Reaction Status Date / Time No Known Allergies Allergy Verified 04/21/23 09:55 Home Medications Medication Instructions Recorded Confirmed Last Taken Type acetaminophen 500 mg tablet 1,000 mg PO DAILY 04/16/23 05/12/23 05/12/23 History albuterol sulfate 90 mcg/actuation 2 puff inhalation Q4H PRN wheezing 04/16/23 05/12/23 Unknown History aerosol inhaler (Ventolin HFA) aspirin 81 mg tablet,delayed 81 mg PO BEDTIME 04/16/23 05/12/23 05/11/23 History release atorvastatin 80 mg tablet 80 mg PO BEDTIME 04/16/23 05/12/23 05/11/23 History cholecalciferol (vitamin D3) 125 125 mcg PO DAILY 04/16/23 05/12/23 05/12/23 History mcg (5,000 unit) tablet (Vitamin D3) folic acid 1 mg tablet 1 mg PO SUMOTUTHFRSA@0900 04/16/23 05/12/23 05/12/23 History insulin glargine 100 unit/mL (3 60 unit subcut BEDTIME 04/16/23 05/12/23 05/11/23 History mL) subcutaneous pen (Lantus Solostar U-100 Insulin) krill ynm-nhwrg-4-dha-epa 150 1 cap PO DAILY 04/16/23 05/12/23 05/12/23 History mg-450 mg capsule,delayed release lisinopril 10 1 tab PO DAILY 04/16/23 05/12/23 05/12/23 History mg-hydrochlorothiazide 12.5 mg tablet methotrexate sodium 2.5 mg tablet 20 mg PO WE@0900 04/16/23 05/12/23 05/07/23 History omeprazole 20 mg capsule,delayed 20 mg PO DAILY 04/16/23 05/12/23 05/12/23 History release insulin aspart U-100 100 unit/mL See Protocol subcut TIDAC 05/12/23 05/12/23 05/12/23 History (3 mL) subcutaneous pen Exam Exam Date and Time: May 23, 2023 0943 Pertinent Lab Results Pertinent Lab Results: Laboratory Tests 05/13/23 05/13/23 07:15 07:15 WBC 9.1 Hgb 14.0 Hct 43.0 Plt Count 219 Sodium 139 Potassium 4.0 Chloride 103 Carbon Dioxide 29 BUN 15 Creatinine 1.22 Narrative Narrative: EKG 04/2023 Vent. Rate : 061 BPM ? ? Atrial Rate : 061 BPM ?? P-R Int : 174 ms? QRS Dur : 084 ms ? ? QT Int : 406 ms ? ? ? P-R-T Axes : 024 -09 048 degrees ?? QTc Int : 408 ms ? Normal sinus rhythm Minimal voltage criteria for LVH, may be normal variant ( R in aVL ) Borderline ECG No previous ECGs available ECHO 04/2023 Conclusions: - 1. Normal LV systolic function with impaired relaxation filling pattern? 2. Normal cardiac valvular Dopplers? 3. No clear evidence of interatrial shunting ? 4. Mildly dilated ascending aorta at 3.7 cm? 5. Normal RV systolic pressure ? 6. No pericardial effusion ? ?? Assessment and Plan Assessment Anesthesia Assessment: Chart Reviewed Final Anesthetic Review Family History of Problems with Anesthesia: No History of Problems with Anesthesia: No Documented by User: Jay Gamble MD 05/26/23 15:47 HPI - Anesthesia Eval Consult details Narrative: 63yo M for Iris repositioning and BLEB REPAIR/REVISION s/p Left cataract 03/2023 with MAC: No medications noted on anesthesia record CVA 05/12/23. Pt presented to [facility] with aphasia. Prior CVA x 2 (2019, 2020) MRI revealed small acute lacunar infarct with multiple chronic lacunar infarcts. Aphasia resolved. Neuro eval recommend strict medical management of blood pressure and DM. Preop eval done 05/22/[address] [facility]. Due to risk of loss of vision, ok to proceed if all other treatments exhausted. Recommend close monitoring with Neuro checks. No interruption of medication. High risk for resurgence of stroke symptoms/TIA/CVA. right side weakness , speech affected after recent stroke Case reviewed with Dr Barton Case discussed with the surgeon and the patient . As per the surgeon need to proceed due to risk of vision loss . patient accepts the increased risk and would like to proceed PMFSH Past Medical History Medical History (Updated 05/26/23 @ 10:31 by Jonelle Matthews RN) Asthma CVA (cerebral vascular accident) Diabetes Diverticulosis GERD (gastroesophageal reflux disease) Glaucoma HTN (hypertension) Hyperlipidemia Intraparenchymal hemorrhage of brain Legionnaires' disease Obesity, Class I, BMI 30.0-34.9 (see actual BMI) Psoriatic arthritis Skin cancer Transient cerebral ischemia Tubular adenoma Surgical History Surgical History History of partial colectomy Hx of melanoma excision Social History Social History Are you a primary adult daycare coordinator to a significant other at home: No Do you presently have visiting nurse or other home services: No Patient Tobacco Use Status: Never used Tobacco Use of substances other than those prescribed or required for medical reasons: No Are you DNR?: No Advance Directives: No Advance Directives Information Provided: Yes Meds Allergies Allergy/AdvReac Type Severity Reaction Status Date / Time No Known Allergies Allergy Verified 04/21/23 09:55 Home Medications Medication Instructions Recorded Confirmed Last Taken Type acetaminophen 500 mg tablet 1,000 mg PO DAILY 04/16/23 05/12/23 05/12/23 History albuterol sulfate 90 mcg/actuation 2 puff inhalation Q4H PRN wheezing 04/16/23 05/12/23 Unknown History aerosol inhaler (Ventolin HFA) aspirin 81 mg tablet,delayed 81 mg PO BEDTIME 04/16/23 05/12/23 05/11/23 History release atorvastatin 80 mg tablet 80 mg PO BEDTIME 04/16/23 05/12/23 05/11/23 History cholecalciferol (vitamin D3) 125 125 mcg PO DAILY 04/16/23 05/12/23 05/12/23 History mcg (5,000 unit) tablet (Vitamin D3) folic acid 1 mg tablet 1 mg PO SUMOTUTHFRSA@0900 04/16/23 05/12/23 05/12/23 History insulin glargine 100 unit/mL (3 60 unit subcut BEDTIME 04/16/23 05/12/23 05/11/23 History mL) subcutaneous pen (Lantus Solostar U-100 Insulin) krill ygg-gfjjq-1-dha-epa 150 1 cap PO DAILY 04/16/23 05/12/23 05/12/23 History mg-450 mg capsule,delayed release lisinopril 10 1 tab PO DAILY 04/16/23 05/12/23 05/12/23 History mg-hydrochlorothiazide 12.5 mg tablet methotrexate sodium 2.5 mg tablet 20 mg PO WE@0900 04/16/23 05/12/23 05/07/23 History omeprazole 20 mg capsule,delayed 20 mg PO DAILY 04/16/23 05/12/23 05/12/23 History release insulin aspart U-100 100 unit/mL See Protocol subcut TIDAC 05/12/23 05/12/23 05/12/23 History (3 mL) subcutaneous pen Exam Airway Mallampati Class: IV Loose/Missing/Broken Teeth: Yes Assessment and Plan Assessment Anesthesia Assessment: Anesthesia Plan Discussed Final Anesthetic Review NPO: Yes ASA Class: IV (urgent ) Final Preanesthetic Review: Meds/Allgs Chart Reviewed, Consent Obtained/Reviewed and Anes Risks/Benef Reviewed Patient Risk: High Procedure Risk: Intermediate Anesthetic Plan Anesthetic Plan: MAC: and Agree w/ Assess. and Plan Disposition: Standard PACU
[2023-05-26 10:22] VITALS: BMI 32.5
[2023-05-26 10:41] LABS: Glucose, Whole Blood 217 mg/dL (60-115)
[2023-05-26 10:43] VITALS: BP 142/95; PULSE 88; RESP 16; TEMP 36.8; O2SAT 94
[2023-05-26] MEDS: Lactated Ringers 500 ML 50 ML IV (10:54)
[2023-05-26 12:46] VITALS: BP 122/63; PULSE 51; RESP 20; TEMP 36.1; O2SAT 96
[2023-05-26 12:59] LABS: Glucose, Whole Blood 146 mg/dL (60-115)
[2023-05-26 13:01] VITALS: BP 161/74; PULSE 59; RESP 20; O2SAT 99
[2023-05-26 13:16] VITALS: BP 141/87; PULSE 60; RESP 20; TEMP 36.1; O2SAT 96
== END 2023-05-26 13:36 | disposition home or self-care (01) ==
PROVIDERS: PCP Internal Medicine Cardiovascular Disease; Visit Provider Ophthalmology
PROC: (CPT 66680; principal; 2023-05-26 12:30)
DX: H21.89 Other specified disorders of iris and ciliary body (principal); H40.1123 Primary open-angle glaucoma, left eye, severe stage; H44.442 Primary hypotony of left eye; Z96.1 Presence of intraocular lens; E10.9 Type 1 diabetes mellitus without complications; I10 Essential (primary) hypertension; E78.5 Hyperlipidemia, unspecified; L40.50 Arthropathic psoriasis, unspecified; J45.909 Unspecified asthma, uncomplicated; Z85.820 Personal history of malignant melanoma of skin; Z86.73 Personal history of transient ischemic attack (TIA), and cerebral infarction without residual deficits; Z79.4 Long term (current) use of insulin; Z79.82 Long term (current) use of aspirin; Z79.899 Other long term (current) drug therapy; Z79.631 Long term (current) use of antimetabolite agent; Z90.49 Acquired absence of other specified parts of digestive tract
CPT/HCPCS: 66680; 66250; 82947; J2405; J7999

== ENCOUNTER 2023-09-15 08:10 | Emergency (ER) | payer MEDICARE, MEDICAID, SELFPAY ==
--- NOTE | ~2023-09-15 | CT_ITS ---
EXAMINATION: CT HEAD WITHOUT CONTRAST (STROKE PROTOCOL) CLINICAL INFORMATION: Stroke protocol. difficulty speaking COMPARISON: CT head on 05/12/2023 TECHNIQUE: Contiguous axial imaging was performed from the skull base to vertex without intravenous administration of contrast. This CT examination was performed using dose optimization techniques as appropriate, variously including the following: *Automated exposure control *Adjustment of mA and/or kV according to patient size (this includes techniques or standardized protocols for targeted exams where dose is matched to indication/reason for exam; i.e. extremities or head) *Use of iterative reconstruction technique DLP: 788.56 mGy-cm FINDINGS: No acute intracranial hemorrhage or infarct. Sequelae of prior lacunar infarcts in the bilateral centrum semiovale and the right cerebellum. The escamilla-white matter differentiation is preserved. Diffuse widening of the sulci with associated mild ex vacuo dilation of the ventricles compatible with global cerebral atrophy. No midline shift or hydrocephalus. No acute extra-axial fluid collections. The osseous structures are unremarkable. Sequelae of left lens replacement. Otherwise, normal orbital pathology. The paranasal sinuses and mastoid air cells are clear. Atherosclerotic crustaceans of the bilateral carotid siphons and visualized intracranial vertebral arteries. CT/CT head for stroke IMPRESSION: No acute intracranial hemorrhage or infarct. The above findings were communicated to to Mario Abbott at 8:43am
--- NOTE | ~2023-09-15 | XR_ITS ---
EXAMINATION: XR CHEST CLINICAL INFORMATION: Low oxygen saturations COMPARISON: None available. TECHNIQUE: AP upright and lateral views of the chest were obtained. 10:08 AM FINDINGS: Monitor leads project over the chest. Mild patchy opacity projects over the retrocardiac portion of the left lower lobe consistent with atelectasis and/or pneumonia. Peribronchial thickening is noted. No significant pleural effusion. No significant abnormality is noted involving the heart, mediastinum, bony thorax or soft tissues. Surgical clips are seen in the left axilla. XR/XR chest 2V IMPRESSION: Left lower lobe atelectasis and/or pneumonia.
--- NOTE | 2023-09-15 08:24 | ECG_ITS ---
Test Reason : STROKE Blood Pressure : / mmHG Vent. Rate : 097 BPM Atrial Rate : 097 BPM P-R Int : 180 ms QRS Dur : 076 ms QT Int : 334 ms P-R-T Axes : 041 006 042 degrees QTc Int : 424 ms Normal sinus rhythm Cannot rule out Anterior infarct , age undetermined Abnormal ECG When compared with ECG of 12-MAY-2023 11:30, Vent. rate has increased BY 36 BPM Referred By: Mario Abbott Electronically Signed By:GONZALES BOYKIN MD
[2023-09-15 08:29] LABS: Prothrombin Time Whole Bld POC 13.2 sec (11.1-13.5); ~PT, ~INR - Anti Coag Clinic 0.9 (0.9-1.1)
[2023-09-15 08:30] LABS: Glucose, Whole Blood 171 mg/dL (60-115)
[2023-09-15 08:33] VITALS: BP 133/68; BP 139/70; PULSE 96; PULSE 98; RESP 16; TEMP 37.2; O2SAT 91; O2SAT 94; BMI 32.1
[2023-09-15 09:07] VITALS: BP 140/76; PULSE 95; RESP 14; TEMP 37.3; O2SAT 91
[2023-09-15 09:10] LABS: MANUAL DIFF FLAG NO
[2023-09-15 09:12] LABS: Basophils Absolute Auto 0.1 X10*3/uL (0.0-0.2); Basophils Percent Auto 0.9 % (0-2); Eosinophils Percent Auto 0.2 % (0-4); Hematocrit 43.5 % (42.0-52.0); Hemoglobin 14.2 g/dl (14.0-18.0); Imm Gran Abs Auto 0.04 X10*3/uL (0.00-0.03); Imm Gran Pct Auto 0.5 % (0.0-0.4); Lymphocytes Absolute Auto 0.4 X10*3/uL (1.2-4.9); Lymphocytes Percent Auto 4.4 % (20-40); Mean Corpuscular HGB Conc 32.6 g/dl (31.0-36.0); Mean Corpuscular Hemoglobin 29.4 pg (27.0-33.0); Mean Corpuscular Volume 90.1 fL (80.0-98.0); Monocytes Absolute Auto 0.7 X10*3/uL (0.1-1.2); Monocytes Percent Auto 8.6 % (2-11); Neutrophils Absolute Auto 7.4 x10*3/uL (2.0-8.3); Neutrophils Percent Auto 85.4 % (45-73); Platelet Count 206 X10*3/uL (160-400); Red Blood Count 4.83 X10*6/uL (4.60-5.80); Red Cell Distribution Width 13.8 % (11.0-16.0); White Blood Count 8.6 X10*3/uL (4.8-10.8)
[2023-09-15 09:17] LABS: INTERNATIONAL NORM RATIO 0.9 (0.9-1.1)
[2023-09-15 09:26] LABS: Ethanol < 10 mg/dL
--- NOTE | 2023-09-15 09:26 | PC.NURSE ---
PT A/O X 3 NO SOB/RAMAKRISHNA NOTED. PT IS VERY DIAPHORETIC. PT STATES +SI/HI. PT HAS A 1:1 SITTER AT BEDSIDE.
[2023-09-15 09:27] LABS: Alanine Aminotransferase 34 U/L (0-40); Albumin Level 4.3 g/dL (3.5-5.0); Alkaline Phosphatase 72 U/L (39-117); Anion Gap 13 (12-20); Aspartate Amino Transferase 28 U/L (5-37); Bilirubin Direct 0.2 mg/dL (0.0-0.5); Bilirubin Total 0.6 mg/dL (0.0-1.0); Blood Urea Nitrogen 15 mg/dL (9-16); C Reactive Protein 0.44 mg/dL (< or = 0.50); Calcium 9.6 mg/dL (8.4-10.2); Carbon Dioxide 25 mmol/L (22-29); Chloride 103 mmol/L (96-108); Creatinine Clr Calc Pharmacy 78.8; Estimated Glomerular Filt Rate > 60; Glucose Random 171 mg/dL (60-115); Magnesium 1.9 mg/dL (1.6-2.6); Sodium 137 mmol/L (135-145); Total Protein 6.9 g/dL (6.5-8.0)
[2023-09-15 09:32] LABS: B Type Natriuretic Peptide 44 pg/mL (<100)
[2023-09-15 09:34] LABS: Troponin-I High Sensitivity 5.6 ng/L (<3.5-35.0)
--- NOTE | 2023-09-15 09:40 | ED_ITS ---
HPI - Neuro Symptoms/Deficit General Chief Complaint: Stroke Stated Complaint: LEG WEAK,SLURR SPEECH,NO DRIFT,SINCE FRI,ON ASA Time Seen by Provider: 09/15/23 08:23 History of Present Illness HPI Narrative: The patient is a 63-year-old male who was a type 1 diabetic. He has been a type 1 diabetic for about 30 years. He has a history of multiple additional medical problems including strokes in the last few years. His last stroke was about a year ago. Apparently his strokes have mostly affected his speech. The patient lives at home with his daughter and his grandson's in a duplex. Apparently over the last 48 hours his family members have felt that his speech was not quite right and he has also felt that he has had some worsening weakness in his legs. The patient is normally able to walk with assistance. He uses a cane. He feels his legs are weaker today. He has not had any definite fever. No chest pain. No significant coughing. No abdominal pain. The patient's ex- is at the bedside. She lives next door and helps look after him. The patient's ex- says that the patient often has mild episodes of worsening speech when he is not feeling well. The patient apparently fell in his home this morning. He had gotten up early this morning to go to the bathroom and lost his balance and fell. He does not think he was injured in anyway. He did not hit his head. Related Data Home Medications Medication Instructions Recorded Confirmed acetaminophen 500 mg tablet 1,000 mg PO DAILY 04/16/23 05/12/23 albuterol sulfate 90 mcg/actuation 2 puff inhalation Q4H PRN wheezing 04/16/23 05/12/23 aerosol inhaler (Ventolin HFA) aspirin 81 mg tablet,delayed 81 mg PO BEDTIME 04/16/23 05/12/23 release atorvastatin 80 mg tablet 80 mg PO BEDTIME 04/16/23 05/12/23 cholecalciferol (vitamin D3) 125 125 mcg PO DAILY 04/16/23 05/12/23 mcg (5,000 unit) tablet (Vitamin D3) folic acid 1 mg tablet 1 mg PO SUMOTUTHFRSA@0900 04/16/23 05/12/23 insulin glargine 100 unit/mL (3 60 unit subcut BEDTIME 04/16/23 05/12/23 mL) subcutaneous pen (Lantus Solostar U-100 Insulin) krill tae-drqnr-5-dha-epa 150 1 cap PO DAILY 04/16/23 05/12/23 mg-450 mg capsule,delayed release lisinopril 10 1 tab PO DAILY 04/16/23 05/12/23 mg-hydrochlorothiazide 12.5 mg tablet methotrexate sodium 2.5 mg tablet 20 mg PO WE@0900 04/16/23 05/12/23 omeprazole 20 mg capsule,delayed 20 mg PO DAILY 04/16/23 05/12/23 release insulin aspart U-100 100 unit/mL See Protocol subcut TIDAC 05/12/23 05/12/23 (3 mL) subcutaneous pen Previous Rx's Medication Instructions Recorded nirmatrelvir 300 mg (150 mg See Rx Instructions PO .COMPLEX 09/15/23 x2)-ritonavir 100 mg tablet,dose #30 ea pack (Paxlovid) Allergies Allergy/AdvReac Type Severity Reaction Status Date / Time No Known Allergies Allergy Verified 04/21/23 09:55 Review of Systems 2 Review of Systems: Yes all other systems are reviewed and are negative ON LICENSE OF [facility] Past Medical History Medical History (Updated 09/15/23 @ 13:05 by Mario Abbott MD) Transient cerebral ischemia Skin cancer Tubular adenoma GERD (gastroesophageal reflux disease) Asthma Psoriatic arthritis Obesity, Class I, BMI 30.0-34.9 (see actual BMI) Legionnaires' disease Intraparenchymal hemorrhage of brain HTN (hypertension) Hyperlipidemia Glaucoma Diverticulosis Diabetes CVA (cerebral vascular accident) Surgical History Hx of melanoma excision History of partial colectomy Social History Social History Are you a primary career guidance counselor to a significant other at home: No Do you presently have visiting nurse or other home services: No Unable to assess alcohol history related to: Unknown Patient Tobacco Use Status: Never used Tobacco Smoked in Last 30 Days: No Use of substances other than those prescribed or required for medical reasons: No Advance Directives: Yes Advance Directives on File: Yes Advance Directives Date on File: 05/15/23 Physical Exam 2 Vital Signs: Vital Signs: Last Vital Signs Temp 98.4 F 09/15/23 13:43 Pulse 80 09/15/23 13:43 Resp 16 09/15/23 13:43 BP 123/62 09/15/23 13:43 Pulse Ox 96 09/15/23 13:43 O2 Del Method Room Air 09/15/23 13:43 BMI result Body Mass Index 32.1 Const: Other: Neck during chronically ill-appearing 63-year-old. He is awake and alert. He seems fatigued but not otherwise obviously acutely ill. No increased work of breathing. No obvious focal neurological deficits HEENT: Other: Face is symmetrical. Mucous membranes look slightly dry. Eyes: Other: Pupils are round equal, extraocular movements are intact, lateral case is intact, visual guzmán are intact to confrontation Neck: Other: No JVD, no neck swelling Resp: Other: Possibly some slight crackles at the bases. No jericho wheezing. Reasonably good air entry bilaterally. Cardio: Other: Patient had a regular rate and rhythm. Mildly tachycardic. GI: Other: Abdomen is soft and nontender. Skin: Other: Skin is pale and dry. He is heavily tattooed. No acute skin findings. Neuro: Other: The patient is awake and alert and oriented. He seems fatigued however. Face is symmetrical. No gross speech difficulties apparent. Eye movements are intact. Visual guzmán are intact. No pronator drift. He is able to lift his legs off the bed for 5 seconds each. No definite focal neurological deficit. Extrem: Other: No calf swelling or tenderness. No calf asymmetry. Medications Administered Discontinued Medications Generic Name Dose Route Start Last Admin Trade Name Freq PRN Reason Stop Dose Admin Acetaminophen 975 mg 09/15/23 11:49 09/15/23 13:01 Acetaminophen 325 Mg Tablet PO 09/15/23 11:50 975 mg ONCE ONE Administration Albuterol/Ipratropium 3 ml 09/15/23 10:27 09/15/23 10:55 Albuterol/Iprat 2.5/0.5mg 3 Ml Ampul.Neb INHALE 09/15/23 10:28 3 ml ONCE ONE Administration Sodium Chloride 1,000 mls @ 999 mls/hr 09/15/23 10:30 09/15/23 13:40 Ns IV 09/15/23 11:30 Infused .Q1H1M FUNMILAYO Infusion Medical Decision Making Medical Decision Making MDM Narrative: The patient is a very chronically ill male. He is a type 1 diabetic who has had diabetes for 30 years. He lives at home with his family. He has felt unwell for the last 2 days with bilateral leg weakness and his family is also concerned about his speech but they were concerned that he might be having a stroke. He presents after 48 hours of symptoms. My concern for stroke was not very high nevertheless we obtained a noncontrast head CT did not show acute findings. There are findings of old lacunar strokes. Patient's labs were quite unremarkable. EKG was unremarkable. Chest x-ray was read as showing ?left lower lobe atelectasis and/or pneumonia.? The patient has a normal white count and normal CRP. I do not think he has a bacterial pneumonia. He has a history of asthma was given a bronchodilator treatment. There was a long delay in his viral swab. Ultimately this came back positive for COVID. I think the patient's symptoms are likely secondary to COVID infection. His vital signs were adequate for outpatient management. He does seem somewhat generally weak but I think he would probably do better at home with his family to look after him. I reviewed his medications for interactions with Paxlovid. The only medication of concern is atorvastatin. The patient will therefore be advised to stop his atorvastatin while taking Paxil of it. Otherwise the patient may continue his other medications. He should stay in touch with his regular doctor. He should return if worse. Lab Data 09/15/23 09:04 09/15/23 09:04 Labs: Lab Results 09/15/23 09/15/23 09/15/23 Range/Units 08:24 08:25 09:04 WBC 8.6 (4.8-10.8) X10*3/uL RBC 4.83 (4.60-5.80) X10*6/uL Hgb 14.2 (14.0-18.0) g/dl Hct 43.5 (42.0-52.0) % MCV 90.1 (80.0-98.0) fL MCH 29.4 (27.0-33.0) pg MCHC 32.6 (31.0-36.0) g/dl RDW 13.8 (11.0-16.0) % Plt Count 206 (160-400) X10*3/uL MPV 12.0 (9.4-12.4) fL Immature Gran % (Auto) 0.5 H (0.0-0.4) % Neut % (Auto) 85.4 H (45-73) % Lymph % (Auto) 4.4 L (20-40) % Owsley % (Auto) 8.6 (2-11) % Eos % (Auto) 0.2 (0-4) % Baso % (Auto) 0.9 (0-2) % Lymph # (Auto) 0.4 L (1.2-4.9) X10*3/uL Owsley # (Auto) 0.7 (0.1-1.2) X10*3/uL Eos # (Auto) 0.0 (0.0-0.4) X10*3/uL Baso # (Auto) 0.1 (0.0-0.2) X10*3/uL Abs Immat Gran (auto) 0.04 H (0.00-0.03) X10*3/uL Absolute Neuts (auto) 7.4 (2.0-8.3) x10*3/uL Absolute Nucleated RBC 0.000 (0.0-0.012) X10*3/uL Nucleated RBC % (auto) 0.0 (0.0-0.2) /100WBC PT 11.0 L (11.1-13.3) SEC Whole Blood PT 13.2 (11.1-13.5) sec INR 0.9 (0.9-1.1) Whole Blood INR 0.9 (0.9-1.1) Sodium 137 (135-145) mmol/L Potassium 4.0 (3.3-5.1) mmol/L Chloride 103 (96-108) mmol/L Carbon Dioxide 25 (22-29) mmol/L Anion Gap 13 (12-20) BUN 15 (9-16) mg/dL Creatinine 1.11 (0.5-1.4) mg/dL Estim Creat Clear Calc 78.8 Estimated GFR > 60 POC Glucose 171 H (60-115) mg/dL Random Glucose 171 H (60-115) mg/dL Calcium 9.6 (8.4-10.2) mg/dL Magnesium 1.9 (1.6-2.6) mg/dL Total Bilirubin 0.6 (0.0-1.0) mg/dL Direct Bilirubin 0.2 (0.0-0.5) mg/dL AST 28 (5-37) U/L ALT 34 (0-40) U/L Alkaline Phosphatase 72 (39-117) U/L Total Creatine Kinase 116 (38-174) U/L Troponin I High Sens 5.6 (<3.5-35.0) ng/L C-Reactive Protein 0.44 (< or = 0.50) mg/dL B-Natriuretic Peptide 44 (<100) pg/mL Total Protein 6.9 (6.5-8.0) g/dL Albumin 4.3 (3.5-5.0) g/dL Ethyl Alcohol < 10 mg/dL Influenza Type A (PCR) NEGATIVE (Negative) Influenza Type B (PCR) NEGATIVE (Negative) RSV RNA Qual (PCR) NEGATIVE (Negative) SARS-CoV-2 RNA (RT-PCR) POSITIVE A (Negative) 09/15/23 Range/Units 11:12 WBC (4.8-10.8) X10*3/uL RBC (4.60-5.80) X10*6/uL Hgb (14.0-18.0) g/dl Hct (42.0-52.0) % MCV (80.0-98.0) fL MCH (27.0-33.0) pg MCHC (31.0-36.0) g/dl RDW (11.0-16.0) % Plt Count (160-400) X10*3/uL MPV (9.4-12.4) fL Immature Gran % (Auto) (0.0-0.4) % Neut % (Auto) (45-73) % Lymph % (Auto) (20-40) % Owsley % (Auto) (2-11) % Eos % (Auto) (0-4) % Baso % (Auto) (0-2) % Lymph # (Auto) (1.2-4.9) X10*3/uL Owsley # (Auto) (0.1-1.2) X10*3/uL Eos # (Auto) (0.0-0.4) X10*3/uL Baso # (Auto) (0.0-0.2) X10*3/uL Abs Immat Gran (auto) (0.00-0.03) X10*3/uL Absolute Neuts (auto) (2.0-8.3) x10*3/uL Absolute Nucleated RBC (0.0-0.012) X10*3/uL Nucleated RBC % (auto) (0.0-0.2) /100WBC PT (11.1-13.3) SEC Whole Blood PT (11.1-13.5) sec INR (0.9-1.1) Whole Blood INR (0.9-1.1) Sodium (135-145) mmol/L Potassium (3.3-5.1) mmol/L Chloride (96-108) mmol/L Carbon Dioxide (22-29) mmol/L Anion Gap (12-20) BUN (9-16) mg/dL Creatinine (0.5-1.4) mg/dL Estim Creat Clear Calc Estimated GFR POC Glucose 217 H (60-115) mg/dL Random Glucose (60-115) mg/dL Calcium (8.4-10.2) mg/dL Magnesium (1.6-2.6) mg/dL Total Bilirubin (0.0-1.0) mg/dL Direct Bilirubin (0.0-0.5) mg/dL AST (5-37) U/L ALT (0-40) U/L Alkaline Phosphatase (39-117) U/L Total Creatine Kinase (38-174) U/L Troponin I High Sens (<3.5-35.0) ng/L C-Reactive Protein (< or = 0.50) mg/dL B-Natriuretic Peptide (<100) pg/mL Total Protein (6.5-8.0) g/dL Albumin (3.5-5.0) g/dL Ethyl Alcohol mg/dL Influenza Type A (PCR) (Negative) Influenza Type B (PCR) (Negative) RSV RNA Qual (PCR) (Negative) SARS-CoV-2 RNA (RT-PCR) (Negative) Independent Interpretation I performed an independent interpretation of an: EKG Interpretation: EKG at 08:33 shows normal sinus rhythm 97 beats per minute. No acute ischemic changes. Discharge Plan Discharge Clinical Impression: COVID-19 Patient Disposition: Home, Self-Care Additional Instructions: You have tested positive for COVID today. Otherwise your testing is quite reassuring. I have sent a prescription for the anti-COVID medication Paxlovid to your pharmacy. Please start taking this medication as soon as you are able to obtain it. This medication is taken 2 times a day (approximately every 12 hours) for a total of 5 days. While you are taking this medication you must not take the atorvastatin you normally take. This medication does not interact well with atorvastatin. Please rest and take it easy. Use acetaminophen as needed for discomfort or fevers. Please get as much help as you can from family and friends while you are ill. You should wear a mask when interacting with others and others should wear a mask when interacting with you. Return to the emergency room is significantly worse. Again, DO NOT TAKE ATORVASTATIN WHILE TAKING PAXLOVID. Prescriptions: New Paxlovid 300 mg (150 mg x 2)-100 mg tablets,dose pack See Rx Instructions .ROUTE .COMPLEX Qty: 30 0RF Rx Instructions: take TWO 150 mg tablets of nirmatrelvir with ONE 100 mg tablet of ritonavir twice daily for 5 days No Action atorvastatin 80 mg tablet 80 mg PO BEDTIME aspirin 81 mg Tablet,Delayed Release (Dr/Ec) 81 mg PO BEDTIME methotrexate sodium 2.5 mg tablet 20 mg PO WE@0900 Rx Instructions: every friday omeprazole 20 mg capsule,delayed release(DR/EC) 20 mg PO DAILY folic acid 1 mg tablet 1 mg PO SUMOTUTHFRSA@0900 lisinopril-hydrochlorothiazide 10-12.5 mg tablet 1 tab PO DAILY albuterol sulfate [Ventolin HFA] 90 mcg/actuation HFA aerosol inhaler 2 puff inhalation Q4H PRN (Reason: wheezing) insulin glargine [Lantus Solostar U-100 Insulin] 100 unit/mL (3 mL) insulin pen 60 unit subcut BEDTIME cholecalciferol (vitamin D3) [Vitamin D3] 125 mcg (5,000 unit) Tablet 125 mcg PO DAILY krill pwp-qnezg-3-dha-epa 150-450 mg Capsule,Delayed Release(Dr/Ec) 1 cap PO DAILY acetaminophen 500 mg Tablet 1,000 mg PO DAILY insulin aspart U-100 100 unit/mL (3 mL) insulin pen See Protocol subcut TIDAC Protocol: Insulin Correction Scale Less than or equal to 110 ---- Give (units): 0 111 to 150 Give (units): 0 151 to 200 Give (units): 2 201 to 250 Give (units): 4 251 to 300 Give (units): 6 301 to 350 Give (units): 8 Greater than 350 Give (units): 10 Call MD if Blood Glucose > : 350 Interventions: ED Discharge Assessment Last Done: 09/15/23 13:44 Discharge Date/Time: 09/15/23 14:00
[2023-09-15] MEDS: Albuterol/Iprat 2.5/0.5MG 3 ML AMPUL.NEB INHALE (10:55)
[2023-09-15 10:56] VITALS: BP 132/67; PULSE 99; RESP 14; TEMP 36.8; O2SAT 91
[2023-09-15 10:58] VITALS: PULSE 98; RESP 14; O2SAT 91
[2023-09-15] MEDS: 0.9 % Sodium Chloride 1,000 ML 999 ML IV (10:58)
[2023-09-15 11:05] VITALS: BP 119/69; PULSE 81; RESP 18; O2SAT 93
--- NOTE | 2023-09-15 11:10 | PC.NURSE ---
PT N/V SM. AMT OF BILE. PT APPEARS PALE. HOB. HR DECREASED TO 40'S THEN INCREASED TO 60'S. PT STATES THAT HE IS FEELING BETTER. PT IS ALSO REGAINING HIS COLOR. FAMILY AT BEDSIDE. PT AWARE OF PLAN OF CARE.
[2023-09-15 11:18] LABS: Glucose, Whole Blood 217 mg/dL (60-115)
[2023-09-15 11:50] LABS: Influenza A PCR NEGATIVE (Negative); Influenza B PCR NEGATIVE (Negative); Resp Syncy Virus RNA Qual PCR NEGATIVE (Negative); SARS COV2 PCR INHOUSE POSITIVE (Negative)
[2023-09-15] MEDS: Acetaminophen 325 MG TABLET 975 MG PO (13:01)
[2023-09-15 13:43] VITALS: BP 123/62; PULSE 80; RESP 16; TEMP 36.9; O2SAT 96
== END 2023-09-15 14:00 | disposition home or self-care (01) ==
PROVIDERS: Emergency Provider Emergency Medicine; PCP Internal Medicine Cardiovascular Disease
DX: U07.1 COVID-19 (principal); R51.9 Headache, unspecified; R94.31 Abnormal electrocardiogram [ECG] [EKG]; R06.02 Shortness of breath; E10.9 Type 1 diabetes mellitus without complications; Z79.4 Long term (current) use of insulin; Z79.899 Other long term (current) drug therapy
CPT/HCPCS: 0241U; 36415; 70450; 71046; 80048; 80076; 80307; 82550; 82947; 83735; 83880; 84484; 85025; 85610; 86140; 93005; 94640; 96360; 96361; 99285

== ENCOUNTER → 2023-09-15 08:24 | Outpatient (BNV) | payer MEDICARE, MEDICAID, SELFPAY | PROVIDERS: Emergency Provider Emergency Medicine; PCP Internal Medicine Cardiovascular Disease; Visit Provider Internal Medicine Cardiovascular Disease | DX: R53.1 Weakness (principal) | CPT/HCPCS: 93010 ==

== ENCOUNTER 2024-06-12 16:26 | Emergency (ER) | payer MEDICARE, MEDICAID, SELFPAY ==
--- NOTE | ~2024-06-12 | XR_ITS ---
EXAMINATION: XR CHEST CLINICAL INFORMATION: weakness, sob COMPARISON: Chest radiograph 09/15/2023 TECHNIQUE: One view of the chest FINDINGS: Lines and tubes: EKG leads overlie the patient. Bilateral axillary surgical clips. Clear lungs. No pleural effusion. No pneumothorax. Unchanged cardiomediastinal silhouette. XR/XR chest 1V IMPRESSION: * Clear lungs. Electronically signed by: Ermelinda Davila MD 06/12/2024 05:49 PM EDT
--- NOTE | ~2024-06-12 | CT_ITS ---
EXAMINATION: CT HEAD WITHOUT CONTRAST CLINICAL INFORMATION: Weakness, gait issues COMPARISON: CT head 09/15/2023 TECHNIQUE: Contiguous axial imaging was performed from the skull base to vertex without intravenous administration of contrast. This CT examination was performed using dose optimization techniques as appropriate, variously including the following: *Automated exposure control *Adjustment of mA and/or kV according to patient size (this includes techniques or standardized protocols for targeted exams where dose is matched to indication/reason for exam; i.e. extremities or head) *Use of iterative reconstruction technique DLP: 767 mGy-cm FINDINGS: There is a streak artifact limiting evaluation of the posterior fossa and along the right temporal lobe. There is no evidence of acute intracranial hemorrhage or edematous territorial infarction. No abnormal mass effect or midline shift is seen. Obrien to white matter differentiation is well preserved. No abnormal extra-axial fluid collections are identified. Commensurate prominence of the ventricles and sulci is compatible with generalized parenchymal volume loss. There is patchy periventricular and subcortical white matter hypoattenuation, most likely representing microangiopathic disease; similar finding seen on the prior study. . No acute calvarial fracture.. Paranasal sinuses and mastoid air cells are well-aerated. CT/CT head/brain wo IV con IMPRESSION: 1. No CT evidence of acute intracranial hemorrhage or edematous territory infarction. Etiology for the patient's symptoms did not be determined. Further evaluation with CTA or MRI as clinically indicated. 2. Artifact limiting evaluation of the posterior fossa and right temporal lobe region. Repeat CT scan as clinically indicated. 3. Chronic changes of cerebral volume loss and small vessel microangiopathic disease. Electronically signed by: Jorge Arrington MD 06/12/2024 06:26 PM EDT
--- NOTE | ~2024-06-12 | CT_ITS ---
EXAMINATION: CT ANGIOGRAM HEAD CT ANGIOGRAM NECK CLINICAL INFORMATION: Weakness. Weak gait. COMPARISON: CT head from 06/12/2024. Brain MRI from 05/12/2023. TECHNIQUE: Initial noncontrast commercial correspondent imaging of the head and neck was performed. Comparison is made with noncontrast head CT from earlier today. Test bolus sequences followed by intravenous administration 70 mL of Omnipaque 350. Helical imaging was performed in the axial plane from the aortic arch to the skull vertex. Delayed postcontrast imaging of the head was also performed. The data was processed at the histotechnologist supervisor's workstation for generation of MIP sequences. Angled MIPs and volume rendered reformatted images were also generated at an offline 3D workstation. Stenoses are assessed in accordance with NASCET criteria unless otherwise indicated. This CT examination was performed using dose optimization techniques as appropriate, variously including the following: *Automated exposure control. *Adjustment of mA and/or kV according to patient size (this includes techniques or standardized protocols for targeted exams where dose is matched to indication/reason for exam; i.e. extremities or head). *Use of iterative reconstruction technique. DLP: 1605 mGy-cm FINDINGS: CT Head: Chronic lacunar infarcts of the deep white matter, left lentiform nucleus, bilateral thalami, and right cerebellar hemisphere. No additional loss of escamilla-white matter differentiation. No evidence of acute intracranial hemorrhage. Scattered and partially confluent hypoattenuation in the periventricular and deep white matter are consistent with moderate microangiopathy. Proportional prominence of the ventricles and sulcal spaces without evidence of obstructive hydrocephalus. No abnormal mass effect or midline shift. No extra-axial fluid collections. No pathologic intra-axial enhancement or regional oligemia. No acute soft tissue or osseous abnormalities. Mild mucosal thickening of the paranasal sinuses. Moderate rightward nasal septal deviation with spurring. The mastoid air cells and middle ear cavities are clear. Left-sided lens extraction. CT Neck: The thyroid gland and remaining cervical soft tissues are within normal limits. Advanced degenerative disc disease at C6-C7 mild to moderate degenerative disc disease at all additional levels. Facet and uncovertebral joint arthropathy leads to osseous encroachment on the neural foramina C6-C7. CT Upper Chest: The visualized lung apices and upper mediastinum are within normal limits. Neck CTA: Aortic Arch: Normal contour and caliber with mild calcific atherosclerotic disease. Classic 3 vessel branching pattern of the aortic arch. Great Vessel Origins: No significant stenosis of the branch origins. Right Common Carotid Artery: No focal stenosis or occlusion. Cervical Right Internal Carotid Artery: Normal opacification without focal stenosis or occlusion. Left Common Carotid Artery: No focal stenosis or occlusion. Cervical Left Internal Carotid Artery: Concentric fibrofatty atherosclerotic disease of the carotid bulb and proximal internal carotid artery causing less than 50% stenosis. Cervical Right Vertebral Artery: Co-dominant. No focal stenosis or occlusion. Cervical Left Vertebral Artery: Co-dominant. No focal stenosis or occlusion. Brain CTA: Intracranial Internal Carotid Arteries: Calcific atherosclerotic disease of the intracranial internal carotid arteries without occlusion or flow-limiting stenosis. Right Anterior Cerebral Artery: Normal A1 segment. Normal opacification of the distal DAYANA segments. Left Anterior Cerebral Artery: Normal A1 segment. Normal opacification of the distal DAYANA segments. Anterior Communicating Artery: Normal. Right Middle Cerebral Artery: Normal M1 segment of the MCA without focal stenosis or occlusion. Normal arborization of the distal segments. Left Middle Cerebral Artery: Normal M1 segment of the MCA without focal stenosis or occlusion. Normal arborization of the distal segments. Right Vertebral Artery: Normal V4 segment. Normal opacification of the proximal segments of the posterior inferior cerebellar artery. Left Vertebral Artery: Normal V4 segment. Normal opacification of the proximal segments of the posterior inferior cerebellar artery. Basilar Artery: Normal without focal stenosis or occlusion. Normal appearance of the proximal superior cerebellar arteries. Right Posterior Cerebral Artery: Normal P1 segment. Normal opacification of the distal INSTRUCTOR PR[employer] segments. Left Posterior Cerebral Artery: Normal P1 segment. Normal opacification of the distal [employer] segments. Normal opacification of the superior sagittal, straight, transverse, and sigmoid sinuses. CT/CT angio head neck IMPRESSION: 1. No evidence of acute intracranial hemorrhage or edematous territorial infarction. Chronic lacunar infarcts of the deep white matter, deep nuclei, and right cerebellar hemisphere. Moderate underlying microangiopathy and generalized cerebral volume loss. 2. CTA of the head and neck without proximal occlusion or flow-limiting stenosis. Electronically signed by: Ludin Mcginnis DO 06/12/2024 08:52 PM EDT
[2024-06-12 16:33] VITALS: BP 122/63; PULSE 70; O2SAT 95
[2024-06-12 16:34] VITALS: BP 151/80; PULSE 69; RESP 18; TEMP 36.9; O2SAT 96; BMI 29.3
--- NOTE | 2024-06-12 16:39 | ECG_ITS ---
Test Reason : WEAKNESS Blood Pressure : / mmHG Vent. Rate : 064 BPM Atrial Rate : 064 BPM P-R Int : 172 ms QRS Dur : 082 ms QT Int : 400 ms P-R-T Axes : 019 -06 036 degrees QTc Int : 412 ms Normal sinus rhythm Normal ECG When compared with ECG of 15-SEP-2023 08:33, Vent. rate has decreased BY 33 BPM Referred By: Denny Vivas Electronically Signed By:JESUS JOHN
--- NOTE | 2024-06-12 16:41 | ED_ITS ---
HPI - General Adult General Chief complaint: General Medical Stated complaint: increased weakness, diff ambulating Time Seen by Provider: 06/12/24 16:39 Source: patient, family and EMS Mode of arrival: EMS Limitations: no limitations History of Present Illness ED Provider: Sangeetha CARLSON narrative: 64 year old male hx of legionnaires disease, tubular adenoma, skin cancer, psoriatic arthiritis, obesity, CVA, ICH, HLD, HTN, glaucoma, diabetes, asthma presenting w/ weakness throughout body X 1 week, LKWT was Friday per son who is at the bedside but per patient he has not felt himself for the past week. Also reports a/c fatigue, malaise, myalgias, difficulty with steady urinary stream X 1 week. He says i think i may of had another stroke . FAST ED score negative for EMS, NIHSS-0 for me on arrival. Denies cp, sob, n/v/d, headache, vision changes, dizziness, fevers, chills.No falls or trauma. Related Data Home Medications ?Medication ?Instructions ?Recorded ?Confirmed acetaminophen 500 mg tablet 1,000 mg PO DAILY 04/16/23 05/12/23 albuterol sulfate 90 mcg/actuation 2 puff inhalation Q4H PRN wheezing 04/16/23 05/12/23 aerosol inhaler (Ventolin HFA) aspirin 81 mg tablet,delayed 81 mg PO BEDTIME 04/16/23 05/12/23 release atorvastatin 80 mg tablet 80 mg PO BEDTIME 04/16/23 05/12/23 cholecalciferol (vitamin D3) 125 125 mcg PO DAILY 04/16/23 05/12/23 mcg (5,000 unit) tablet (Vitamin D3) folic acid 1 mg tablet 1 mg PO SUMOTUTHFRSA@0900 04/16/23 05/12/23 insulin glargine 100 unit/mL (3 60 unit subcut BEDTIME 04/16/23 05/12/23 mL) subcutaneous pen (Lantus Solostar U-100 Insulin) krill [id number]-9-dha-epa 150 1 cap PO DAILY 04/16/23 05/12/23 mg-450 mg capsule,delayed release lisinopril 10 1 tab PO DAILY 04/16/23 05/12/23 mg-hydrochlorothiazide 12.5 mg tablet methotrexate sodium 2.5 mg tablet 20 mg PO WE@0900 04/16/23 05/12/23 omeprazole 20 mg capsule,delayed 20 mg PO DAILY 04/16/23 05/12/23 release insulin aspart U-100 100 unit/mL See Protocol subcut TIDAC 05/12/23 05/12/23 (3 mL) subcutaneous pen Previous Rx's ?Medication ?Instructions ?Recorded nirmatrelvir 300 mg (150 mg See Rx Instructions PO .COMPLEX 09/15/23 x2)-ritonavir 100 mg tablet,dose #30 ea pack (Paxlovid) Allergies Allergy/AdvReac Type Severity Reaction Status Date / Time No Known Allergies Allergy Verified 06/12/24 16:38 Review of Systems 2 Review of Systems: Yes all other systems are reviewed and are negative [facility] Past Medical History Attestation statement: The following information was validated with the patient. Source: old records reviewed and nursing notes reviewed Medical History Transient cerebral ischemia Skin cancer Tubular adenoma GERD (gastroesophageal reflux disease) Asthma Psoriatic arthritis Obesity, Class I, BMI 30.0-34.9 (see actual BMI) Legionnaires' disease Intraparenchymal hemorrhage of brain HTN (hypertension) Hyperlipidemia Glaucoma Diverticulosis Diabetes CVA (cerebral vascular accident) Surgical History Hx of melanoma excision History of partial colectomy Social History Social History Are you a primary resident care technician to a significant other at home: No Do you presently have visiting nurse or other home services: No Unable to assess alcohol history related to: Unknown Patient Tobacco Use Status: Never used Tobacco Smoked in Last 30 Days: No Use of substances other than those prescribed or required for medical reasons: No Advance Directives: Yes Advance Directives on File: Yes Advance Directives Date on File: 05/15/23 Do you have a plan to hurt others: No Plan Physical Exam ED Vital Signs: Vital Signs - 24 hr 06/12/24 16:34 06/12/24 18:32 06/12/24 19:27 Temperature 98.5 F 98.9 F Pulse Rate 69 61 67 Respiratory Rate 18 15 15 Blood Pressure 151/80 H 126/57 L 136/63 Pulse Oximetry 96 97 96 Oxygen Delivery Method Room Air Room Air 06/13/24 00:00 Temperature 97.6 F Pulse Rate 54 Respiratory Rate 15 Blood Pressure 134/65 Pulse Oximetry 96 Oxygen Delivery Method Room Air BMI result Body Mass Index 29.3 vss Appearance: Alert.? Oriented X3.? No acute distress.? Head: Normocephalic, atraumatic, no step-offs or deformities Eyes: Pupils equal, round and reactive to light.? CVS: Normal heart rate and rhythm.? Pulses normal.? Respiratory: No respiratory distress.? Breath sounds normal.? Abdomen: Soft and nontender.? Skin: Skin warm and dry.? Normal skin color.? Normal skin turgor.? Extremities: No lower extremity edema.? No calf ttp. 5/5 strength to bilateral upper and lower extremities Neuro: Oriented X 3.? No motor deficit.? No sensory deficit. CN 2-12 intact Course Reevaluation(s) Reevaluation #1: CBC with no acute findings eating intervention, there is a mild normocytic anemia noted. Chemistry with slight bump in BUN and creatinine will hydrate with IV fluids. Troponin negative, EKG nonischemic Head CT - no evidence of intracranial hemorrhage or edematous territorial infarction. Artifact limiting evaluation of the posterior fossa and right temporal lobe region, CTA has been ordered to further evaluate this. CXR - unremarkable. CTA UA still pending Time: 20:20 Reevaluation #2: Patient's CTA no evidence of acute intracranial hemorrhage or epididymis territorial infarction chronic lacunar infarcts 50 white matter noted. CTA of the brain and neck without proximal occlusion or flow-limiting stenosis. Patient states that he has been having issues paying for the last few days. Bladder scan done he does seem to be retaining greater than 500, straight cath ordered. Normal strength to LE, no saddle anthesthesias normal reflexes. I do not supsect cord compression, cauda equina. Discuss this case with my attending who agrees with diagnosis and treatment plan. Time: 23:01 Reevaluation #3: Patient will be evaluated by physical therapy and case management. He was able to ambulate with to assist. At this time patient to be placed into observation to allow more time to be evaluated by physical therapy and case management. At time observation was started patient common cooperative no acute distress will continue to monitor Time: 00:27 Medications Administered Discontinued Medications Generic Name Dose Route Start Last Admin Trade Name Freq PRN Reason Stop Dose Admin Sodium Chloride 1,000 mls @ 999 mls/hr 06/12/24 18:45 06/12/24 20:30 Ns IV 06/12/24 19:45 Infused .Q1H1M FUNMILAYO Infusion Iohexol 70 ml 06/12/24 19:29 06/12/24 19:30 Iohexol 350 Mg/Ml 100 Ml Infus..Btl IV 06/12/24 19:30 70 ml ONCE ONE Administration Medical Decision Making Medical Decision Making MDM Narrative: 1540 64 yo m presents w/ global weakness X 1 week hx of cva PE no focal deicits. Physical exam with suspicion for progressive weakness secondary to CVA. Unlikely acute intracranial hemorrhage, stroke, posterior stroke. Less likely Guillain-[place] or demyelinating condition. Will rule out metabolic derangements. Plan- labs, imaging, urine, chest xray Differential Diagnosis Differential Diagnoses: The differential diagnosis associated with the presentation includes Physical exam with suspicion for progressive weakness secondary to CVA. Unlikely acute intracranial hemorrhage, stroke, posterior stroke. Less likely Guillain-[place] or demyelinating condition. Will rule out metabolic derangements. Admission/Observation Consideration of admission/observation: Escalation of care including admission/observation considered possible Lab Data [facility] Lab Attestation statement: I reviewed the patient's lab results. 06/12/24 17:39 06/12/24 17:39 Labs: Lab Results 06/12/24 06/12/24 06/12/24 Range/Units 17:39 20:15 23:22 WBC 6.7 (4.8-10.8) X10*3/uL RBC 4.53 L (4.60-5.80) X10*6/uL Hgb 13.8 L (14.0-18.0) g/dl Hct 40.3 L (42.0-52.0) % MCV 89.0 (80.0-98.0) fL MCH 30.5 (27.0-33.0) pg MCHC 34.2 (31.0-36.0) g/dl RDW 14.0 (11.0-16.0) % Plt Count 224 (160-400) X10*3/uL MPV 11.0 (9.4-12.4) fL Immature Gran % (Auto) 0.1 (0.0-0.4) % Neut % (Auto) 67.0 (45-73) % Lymph % (Auto) 21.4 (20-40) % Morrow % (Auto) 8.8 (2-11) % Eos % (Auto) 1.5 (0-4) % Baso % (Auto) 1.2 (0-2) % Lymph # (Auto) 1.4 (1.2-4.9) X10*3/uL Morrow # (Auto) 0.6 (0.1-1.2) X10*3/uL Eos # (Auto) 0.1 (0.0-0.4) X10*3/uL Baso # (Auto) 0.1 (0.0-0.2) X10*3/uL Abs Immat Gran (auto) 0.01 (0.00-0.03) X10*3/uL Absolute Neuts (auto) 4.5 (2.0-8.3) x10*3/uL Absolute Nucleated RBC 0.000 (0.0-0.012) X10*3/uL Nucleated RBC % (auto) 0.0 (0.0-0.2) /100WBC PT 10.6 L (11.1-13.3) SEC INR 0.9 (0.9-1.1) Sodium 139 (135-145) mmol/L Potassium 4.0 (3.3-5.1) mmol/L Chloride 106 (96-108) mmol/L Carbon Dioxide 27 (22-29) mmol/L Anion Gap 10 L (12-20) BUN 20 H (9-16) mg/dL Creatinine 1.00 (0.5-1.4) mg/dL Estim Creat Clear Calc 82.7 Estimated GFR > 60 Random Glucose 268 H (60-115) mg/dL Calcium 9.8 (8.4-10.2) mg/dL Magnesium 2.0 (1.6-2.6) mg/dL Total Bilirubin 0.5 (0.0-1.0) mg/dL AST 22 (5-37) U/L ALT 28 (0-40) U/L Alkaline Phosphatase 63 (39-117) U/L Troponin I High Sens 3.5 (<3.5-35.0) ng/L Total Protein 6.4 L (6.5-8.0) g/dL Albumin 4.1 (3.5-5.0) g/dL Urine Color Yellow Urine Appearance Clear Urine pH 5.5 (5.0-9.0) Ur Specific Lena >= 1.030 H (1.005-1.025) Urine Protein Negative (Neg-Trace) mg/dL Urine Glucose (UA) >=1000 H (Negative) mg/dL Urine Ketones Negative (Negative) mg/dL Urine Blood Small (1+) H (Negative) Urine Nitrite Negative (Negative) Ur Leukocyte Esterase Negative (Negative) Urine RBC 6-10 H (0-2) /HPF Urine WBC 0-5 (0-5) /HPF Ur Squamous Epith Cells 0-2 (0-2) /HPF Urine Bacteria None Seen (None Seen) Hyaline Casts 0-2 (0-2) /LPF Influenza Type A (PCR) NEGATIVE (Negative) Influenza Type B (PCR) NEGATIVE (Negative) RSV RNA Qual (PCR) NEGATIVE (Negative) SARS-CoV-2 RNA (RT-PCR) NEGATIVE (Negative) Independent Interpretation I performed an independent interpretation of an: EKG (Vent. Rate : 064 BPM Atrial Rate : 064 BPM P-R Int : 172 ms QRS Dur : 082 ms QT Int : 400 ms P-R-T Axes : 019 -06 036 degrees QTc Int : 412 ms Normal sinus rhythm Normal ECG When compared with ECG of 15-SEP-2023 08:33, Vent. rate has decreased BY 33 BPM ), Plain X-Ray (XR/XR chest 1V IMPRESSION: * Clear lungs. ) and CT Scan ( CT/CT head/brain wo IV con IMPRESSION: 1. No CT evidence of acute intracranial hemorrhage or edematous territory infarction. Etiology for the patient's symptoms did not be determined. Further evaluation with CTA or MRI as clinically indicated. 2. Artifact limiting evaluation of the posterior fo) Radiology Impression Discussion of test interpretation with radiology: I have reviewed the radiologist's reading. External Record Review External record reviewed: Office record, Outpatient record and Prior outpatient labs Chronic Conditions Patient?s care impacted by: Diabetes, Hypertension and Other (see hpi ) Critical Care Time Critical Care Time Critical Care Time: Yes Total Critical Care Time: 35 Attestation: I attest to this time spent taking care of the patient, obtaining history, physical, reviewing labs, imaging, treatment of patients condition +/- specialist/hospitalist consult Discharge Plan Discharge Clinical Impression: Acute urinary retention, Physical deconditioning Patient Disposition: Still a Patient Prescriptions: No Action Paxlovid 300 mg (150 mg x 2)-100 mg tablets,dose pack See Rx Instructions .ROUTE .COMPLEX Qty: 30 0RF Rx Instructions: take TWO 150 mg tablets of nirmatrelvir with ONE 100 mg tablet of ritonavir twice daily for 5 days atorvastatin 80 mg tablet 80 mg PO BEDTIME aspirin 81 mg Tablet,Delayed Release (Dr/Ec) 81 mg PO BEDTIME methotrexate sodium 2.5 mg tablet 20 mg PO WE@0900 Rx Instructions: every friday omeprazole 20 mg capsule,delayed release(DR/EC) 20 mg PO DAILY folic acid 1 mg tablet 1 mg PO SUMOTUTHFRSA@0900 lisinopril-hydrochlorothiazide 10-12.5 mg tablet 1 tab PO DAILY albuterol sulfate [Ventolin HFA] 90 mcg/actuation HFA aerosol inhaler 2 puff inhalation Q4H PRN (Reason: wheezing) insulin glargine [Lantus Solostar U-100 Insulin] 100 unit/mL (3 mL) insulin pen 60 unit subcut BEDTIME cholecalciferol (vitamin D3) [Vitamin D3] 125 mcg (5,000 unit) Tablet 125 mcg PO DAILY krill bvm-[id number]-5-dha-epa 150-450 mg Capsule,Delayed Release(Dr/Ec) 1 cap PO DAILY acetaminophen 500 mg Tablet 1,000 mg PO DAILY insulin aspart U-100 100 unit/mL (3 mL) insulin pen See Protocol subcut TIDAC Protocol: Insulin Correction Scale Less than or equal to 110 ---- Give (units): 0 111 to 150 Give (units): 0 151 to 200 Give (units): 2 201 to 250 Give (units): 4 251 to 300 Give (units): 6 301 to 350 Give (units): 8 Greater than 350 Give (units): 10 Call MD if Blood Glucose > : 350 Print Language: Polish
[2024-06-12 17:42] LABS: MANUAL DIFF FLAG NO
[2024-06-12 17:44] LABS: Basophils Absolute Auto 0.1 X10*3/uL (0.0-0.2); Basophils Percent Auto 1.2 % (0-2); Eosinophils Absolute Auto 0.1 X10*3/uL (0.0-0.4); Eosinophils Percent Auto 1.5 % (0-4); Hematocrit 40.3 % (42.0-52.0); Hemoglobin 13.8 g/dl (14.0-18.0); Imm Gran Abs Auto 0.01 X10*3/uL (0.00-0.03); Imm Gran Pct Auto 0.1 % (0.0-0.4); Lymphocytes Absolute Auto 1.4 X10*3/uL (1.2-4.9); Lymphocytes Percent Auto 21.4 % (20-40); Mean Corpuscular HGB Conc 34.2 g/dl (31.0-36.0); Mean Corpuscular Hemoglobin 30.5 pg (27.0-33.0); Monocytes Absolute Auto 0.6 X10*3/uL (0.1-1.2); Monocytes Percent Auto 8.8 % (2-11); Neutrophils Absolute Auto 4.5 x10*3/uL (2.0-8.3); Platelet Count 224 X10*3/uL (160-400); Red Blood Count 4.53 X10*6/uL (4.60-5.80); White Blood Count 6.7 X10*3/uL (4.8-10.8)
[2024-06-12 17:50] LABS: INTERNATIONAL NORM RATIO 0.9 (0.9-1.1); Prothrombin Time 10.6 SEC (11.1-13.3)
[2024-06-12 18:01] LABS: Alanine Aminotransferase 28 U/L (0-40); Albumin Level 4.1 g/dL (3.5-5.0); Alkaline Phosphatase 63 U/L (39-117); Anion Gap 10 (12-20); Aspartate Amino Transferase 22 U/L (5-37); Bilirubin Total 0.5 mg/dL (0.0-1.0); Blood Urea Nitrogen 20 mg/dL (9-16); Calcium 9.8 mg/dL (8.4-10.2); Carbon Dioxide 27 mmol/L (22-29); Chloride 106 mmol/L (96-108); Creatinine Clr Calc Pharmacy 82.7; Estimated Glomerular Filt Rate > 60; Glucose Random 268 mg/dL (60-115); Sodium 139 mmol/L (135-145); Total Protein 6.4 g/dL (6.5-8.0)
[2024-06-12 18:08] LABS: Troponin-I High Sensitivity 3.5 ng/L (<3.5-35.0)
[2024-06-12 18:32] VITALS: BP 126/57; PULSE 61; RESP 15; O2SAT 97
[2024-06-12] MEDS: 0.9 % Sodium Chloride 1,000 ML 999 ML IV (19:26)
[2024-06-12 19:27] VITALS: BP 136/63; PULSE 67; RESP 15; TEMP 37.2; O2SAT 96
[2024-06-12] MEDS: iohexoL 350 MG/ML 100 ML INFUS..BTL 70 ML IV (19:30)
[2024-06-12 21:00] LABS: Influenza A PCR NEGATIVE (Negative); Influenza B PCR NEGATIVE (Negative); Resp Syncy Virus RNA Qual PCR NEGATIVE (Negative); SARS COV2 PCR INHOUSE NEGATIVE (Negative)
--- NOTE | 2024-06-12 23:25 | PC.NURSE ---
pt unable to void, bladder scanned for >500. pt reports he does not have a urge to go. pt straight cath at this time, 400ml clear urine voided, tolerated well.
[2024-06-12 23:29] LABS: Appearance Urine Clear; Color Urine Yellow; Glucose Urine UA >=1000 mg/dL (Negative); Leukocyte Esterase Urine Negative (Negative); Nitrite Urine Negative (Negative); PH 5.5 (5.0-9.0); Specific Gravity - Urine >= 1.030 (1.005-1.025); UMIC TRIGGER UACC YES; Urine Blood Small (1+) (Negative); Urine Ketones Negative (Negative); Urine Protein Negative (Neg-Trace)
[2024-06-12 23:34] LABS: Bacteria Urine None Seen (None Seen); Hyaline Casts Urine 0-2 /LPF (0-2); Squamous Epithelial Cell Urine 0-2 /HPF (0-2); WBC Urine 0-5 /HPF (0-5)
[2024-06-13] VITALS: BP 134/65; PULSE 54; RESP 15; TEMP 36.4; O2SAT 96
[2024-06-13 00:30] LABS: Glucose, Whole Blood 268 mg/dL (60-115)
--- NOTE | 2024-06-13 00:31 | PC.NURSE ---
attempted to get pt out of bed and ambulate, pt unable to stand up. pt reports he cant feel his feet and feel weak. Aixa GRIFFIN aware.
--- NOTE | 2024-06-13 01:59 | PC.NURSE ---
pt placed into hospital bed for comfort at this time.
--- NOTE | 2024-06-13 02:01 | MHC.EDTECH ---
Pt moved into hospital bed for comfort.
[2024-06-13 05:36] VITALS: BP 142/78; PULSE 57; RESP 17; TEMP 36.8; O2SAT 96
--- NOTE | 2024-06-13 06:50 | PC.NURSE ---
this RN confirmed pt medications with pt at bedside. provider aware.
[2024-06-13 07:15] LABS: Glucose, Whole Blood 319 mg/dL (60-115)
[2024-06-13 07:19] VITALS: BP 167/80; PULSE 57; RESP 16; TEMP 36.6; O2SAT 93
[2024-06-13] MEDS: Insulin Lispro 100 UNIT/ML 3 ML VIAL SUBCUT ×4 (07:21→21:02)
--- NOTE | 2024-06-13 07:31 | PC.NURSE ---
patient sitting up in bed, respirations equal and unlabored, skin noted to be dry and intact. patient VSS. awake and alert, eating breakfast. no signs of acute distress noted.
--- NOTE | 2024-06-13 10:08 | PHA.MEDREC ---
Pharmacy Consult ? Medication Reconciliation Pharmacy has completed the medication reconciliation, spoke to HCP Eunice who knew and confirmed all the meds, said he uses selam and refresh eye drops OTC.
--- NOTE | 2024-06-13 10:15 | MHC.CM.PN ---
A PT eval has been ordered, and is pending.
[2024-06-13] MEDS: Cholecalciferol (Vitamin D3) 25 MCG TABLET 125 MCG PO (10:22)
[2024-06-13] MEDS: Folic Acid 1 MG TABLET PO (10:22)
--- NOTE | 2024-06-13 10:42 | PC.NURSE ---
patient states he feels as if he has to urinate and is unable to establish stream, bladder scan performed showing over 721 in bladder.
--- NOTE | 2024-06-13 11:23 | PC.NURSE ---
straight cath performed by this RN patient had 900ml urine output of yellow clear urine
[2024-06-13] MEDS: Omeprazole 20 MG CAPSULE.DR PO (11:32)
[2024-06-13] MEDS: Acetaminophen 325 MG TABLET 975 MG PO ×2 (11:32→21:03)
[2024-06-13 11:55] LABS: Glucose, Whole Blood 306 mg/dL (60-115)
[2024-06-13] MEDS: hydroCHLOROthiazide 12.5 MG TABLET PO (12:06)
[2024-06-13] MEDS: lisinopriL 20 MG TABLET PO (12:06)
[2024-06-13] MEDS: Tamsulosin HCL 0.4 MG CAPSULE PO (13:46)
[2024-06-13 14:30] VITALS: BP 137/72; PULSE 64; RESP 16; TEMP 36.4; O2SAT 95
--- NOTE | 2024-06-13 17:09 | PC.NURSE ---
patient stated that he felt as if his legs had pins and needles, patient bilat legs are warm to the touch, patient has bilat pedal pulses present. patient repositioned to sit on the edge of the bed, given blanket over shoulders for comfort. call harman within reach. patient appears to be now comfortable
[2024-06-13 17:18] LABS: Glucose, Whole Blood 306 mg/dL (60-115)
[2024-06-13 18:55] VITALS: BP 150/73; PULSE 57; RESP 16; O2SAT 95
--- NOTE | 2024-06-13 19:18 | PC.NURSE ---
Assumed care of pt.
[2024-06-13 20:11] LABS: Glucose, Whole Blood 283 mg/dL (60-115)
[2024-06-13] MEDS: Aspirin Enteric Coated 81 MG TABLET.DR PO (21:03)
[2024-06-13] MEDS: Atorvastatin Calcium 80 MG TABLET PO (21:03)
--- NOTE | 2024-06-13 21:25 | PC.NURSE ---
Per verbal order from GABY Renteria, changed Glargine order from 55 units to 50 units SQ @ 2100.
[2024-06-13] MEDS: Insulin Glargine,Hum.rec.anlog 100 UNIT/ML 10 ML VIAL 50 UNIT SUBCUT (21:29)
[2024-06-13 22:00] VITALS: BP 119/58; PULSE 52; RESP 16; TEMP 36.6; O2SAT 94
--- NOTE | 2024-06-13 22:51 | PC.NURSE ---
Pt woke and endorsed nausea, dry heaved with no emesis. GABY Vivas made aware.
[2024-06-13 22:57] LABS: Glucose, Whole Blood 186 mg/dL (60-115)
[2024-06-13] MEDS: ondansetron HCL 4 MG/2 ML VIAL IVPUSH (23:37)
--- NOTE | 2024-06-14 00:13 | PC.NURSE ---
Assumed care of pt @2300. Zofran administered d/t c/o nausea with good effect. No apparent distress noted. Call harman within reach. Plan of care ongoing.
[2024-06-14 05:27] VITALS: BP 129/59; PULSE 67; RESP 14; TEMP 36.7; O2SAT 93
[2024-06-14] MEDS: Omeprazole 20 MG CAPSULE.DR PO (06:11)
[2024-06-14 07:35] LABS: Glucose, Whole Blood 258 mg/dL (60-115)
[2024-06-14] MEDS: Insulin Lispro 100 UNIT/ML 3 ML VIAL SUBCUT ×2 (07:58→11:49)
[2024-06-14] MEDS: Acetaminophen 325 MG TABLET 975 MG PO (07:59)
[2024-06-14] MEDS: Cholecalciferol (Vitamin D3) 25 MCG TABLET 125 MCG PO (07:59)
[2024-06-14] MEDS: Folic Acid 1 MG TABLET PO (08:00)
[2024-06-14] MEDS: Tamsulosin HCL 0.4 MG CAPSULE PO (08:00)
[2024-06-14 08:04] VITALS: BP 151/72
[2024-06-14] MEDS: hydroCHLOROthiazide 12.5 MG TABLET PO (08:04)
[2024-06-14 08:05] VITALS: BP 151/72
[2024-06-14] MEDS: lisinopriL 20 MG TABLET PO (08:05)
[2024-06-14 11:45] LABS: Glucose, Whole Blood 297 mg/dL (60-115)
--- NOTE | 2024-06-14 12:12 | PC.NURSE ---
Patient is scheduled for discharge at 1300, IV (20G in left forearm) removed, patient's belongings at bedside
--- NOTE | 2024-06-14 12:40 | MHC.CM.ED ---
Patient remains in ER overflow. Physical therapy eval completed. Short term rehab is recommended. Met with patient in regards to discharge planning. Patient lives alone, ambulates with a cane and has a SENIOR CLINICAL DATA COORDINATOR. Patient's HCP/ex , Eunice, lives next door and is able to assist patient when necessary. Copy of HCP verified to be on file. PCP verified. Patient declining STR at this time and feels he can safely return home. Patient has been active with [facility] in the past. Referral made at patient's request. Patient has a new lombardi d/t urinary retention and he will return home with it. [facility] does not feel they can accept patient due to lacking dx. Referral broadcasted. [facility] is able to see in 48 hours. Due to lombardi, need a SOC sooner. [facility] able to accept patient. Patient agreeable. Continue to monitor for d/c needs.
[2024-06-14 13:12] VITALS: BP 151/72; PULSE 67; RESP 14; TEMP 36.7
== END 2024-06-14 13:15 | disposition home or self-care (01) ==
PROVIDERS: Physician Assistant; Emergency Provider Emergency Medicine Emergency Medical Services; PCP Internal Medicine Cardiovascular Disease
DX: R33.9 Retention of urine, unspecified (principal); R53.81 Other malaise; R53.1 Weakness; Z03.818 Encounter for observation for suspected exposure to other biological agents ruled out; E11.9 Type 2 diabetes mellitus without complications; I10 Essential (primary) hypertension; E78.5 Hyperlipidemia, unspecified; J45.909 Unspecified asthma, uncomplicated; Z79.4 Long term (current) use of insulin; Z79.899 Other long term (current) drug therapy; Z79.82 Long term (current) use of aspirin; Z86.73 Personal history of transient ischemic attack (TIA), and cerebral infarction without residual deficits; Z79.02 Long term (current) use of antithrombotics/antiplatelets
CPT/HCPCS: 0241U; 36415; 51702; 70450; 70496; 70498; 71045; 80053; 81001; 82947; 83735; 84484; 85025; 85610; 93005; 96361; 96365; 96375; 97162; 99285; J2405; Q9967

== ENCOUNTER 2024-07-22 08:04 | Outpatient (AMB) | payer MEDICARE, MEDICAID, SELFPAY ==
--- NOTE | 2024-07-22 08:07 | A.OFFVIS_ITS ---
Intake Visit Reasons: ED f/u urinary retention/ VT Intake Note: New Patient presents for initial visit for voiding trial Urology Medications: none Blood Thinner: aspirin PVR: Elementary Assistant Teacher Required: No Accompanied by: childcare aide Allergies No Known Allergies Allergy (Verified 07/22/24 09:11) Medication List - Last Reconciled 07/22/24 by KELLIE Strange-SERGIO acetaminophen 1,000 mg PO BID albuterol sulfate 90 mcg/actuation (Ventolin HFA) 2 puffs inhalation Q4H PRN aspirin 81 mg PO DAILY atorvastatin 80 mg PO BEDTIME carboxymethylcellulose sodium 1% 1 drp ophthalmic (eye) QID PRN cholecalciferol (vitamin D3) (Vitamin D3) 125 mcg PO DAILY fexofenadine 180 mg PO DAILY finasteride 5 mg PO DAILY 90 days folic acid 1 mg PO SUMOTUTHFRSA@0900 insulin aspart U-100 See Protocol sliding scale doses subcut TIDAC insulin glargine (Lantus Solostar U-100 Insulin) 55 units subcut BEDTIME krill [id number]-epa 150-450 mg 1 cap PO DAILY lisinopril-hydrochlorothiazide 20-12.5 mg 1 tab PO DAILY methotrexate sodium 20 mg PO WE@0900 mupirocin 2% 1 appl topical BID omeprazole 20 mg PO DAILY@0630 tamsulosin (Flomax) 0.8 mg (2 x 0.4 mg) PO BEDTIME 90 days HPI Comments Details: Sandeep is a very pleasant 64-year-old male patient who was accompanied his ex- at today's office visit. He has a past medical history of transient cerebral ischemia, skin cancer, GERD, asthma, psoriatic arthritis, obesity, legionnaires disease, intraparenchymal hemorrhage of brain, hypertension, hyperlipidemia, glaucoma, diverticulitis, type 1 diabetes, and multiple cerebrovascular accidents (2019, 2020, and 2022). He presents to the office today as a new patient for urinary retention. In discussion with the patient and his ex- today he reports having seeked emergency room care approximately 4 weeks ago for question of another potential stroke. He reports he had been fe eling fatigue, malaise, myalgias, and weak urinary stream for approximately 1 week prior to ER arrival at which time patient was straight cath multiple times for increased urinary outputs ranging from 400-900 mL. A indwelling Lombardi catheter was then placed upon discharge and urology referral was made for further assessment evaluation. In office voiding trial performed and patient was unable to void independently in the office however he was given the opportunity to go home and increase his fluid intake and attempt to void independently. Patient's son called back the office later that day to report he had been urinating independently at home. He reports he urinated twice in 4-5 hours in voided approximately 200 mL of clear yellow urine. We discussed at length potential causes of urinary retention. Discussed increasing Flomax to 0.8 mg daily and will initiate finasteride. Discussed obtaining retroperitoneal ultrasound for further assessment evaluation. When asked he does report prior to episode of urinary retention he had been experiencing weak urinary stream and nocturia up to 5 times per night. Discussed importance of seeking medical treatment if he is unable to void. [facility] Medical History Transient cerebral ischemia Skin cancer Tubular adenoma GERD (gastroesophageal reflux disease) Asthma Psoriatic arthritis Obesity, Class I, BMI 30.0-34.9 (see actual BMI) Legionnaires' disease Intraparenchymal hemorrhage of brain HTN (hypertension) Hyperlipidemia Glaucoma Diverticulosis Diabetes CVA (cerebral vascular accident) Surgical History Hx of melanoma excision History of partial colectomy Social History Are you a primary care program director to a significant other at home: No Do you presently have visiting nurse or other home services: No Unable to assess alcohol history related to: Unknown Patient Tobacco Use Status: Never used Tobacco Advance Directives Date on File: 05/15/23 Review of Systems Const Reports as per HPI Eyes Reports no additional complaints ENT Reports no additional complaints Card Reports as per HPI Resp Reports no additional complaints GI Reports as per HPI Reports as per HPI Musc Reports as per HPI Neuro Reports as per HPI Psych Reports no additional complaints Endo Reports as per HPI Jose Francisco/Lymph Reports no additional complaints Aller/Immun Reports no additional complaints Physical Exam Const General: cooperative, comfortable, no acute distress, well developed, alert and awake Nutritional Appearance: overweight Orientation/consciousness: patient oriented x3 Limitations: ambulation with cane HEENT Head: Yes normal to inspection, Yes normocephalic and Yes atraumatic Ears: hearing grossly normal bilaterally Eyes General: appearance normal, both eyes and all related structures Neck Neck: Yes normal visual inspection and Yes trachea midline Chest Chest palpation & inspection: normal inspection of the chest Resp Effort & Inspection: normal respiratory effort and able to speak in complete sentences Cardio Rate: regular rate GI Inspection: Yes normal to inspection General: Yes no CVA tenderness Back/Spine/Pelvis Back: no CVA tenderness Skin General skin exam: no rashes or lesions noted Neuro General: patient oriented x3 Extrem General: Yes normal to inspection Psych Appearance: grossly normal and well kempt Mental Status: mental status grossly normal Speech and movement: Normal speech and movement present and Clear speech present Affect: normal affect Attitude: cooperative Thought process: Normal thought process present Thought content: Normal thought content present Insight: Fair insight present (Psych) Judgement: Fair judgement present (Psych) Office Procedures Bladder/Catheter Procedure Details: Patient here for voiding trial. 120 mL of sterile water instilled through catheter, patient tolerated well. 16 malagasy lombardi catheter with 10 mL balloon removed, patient tolerated well. He tried to urinate in the commode with no success. Patient will try to urinate at home, and if unable to he will come back to the office around 1 pm. 29164-Nzmuyflpbt of Bladder Procedure code (CPT) selection complete Assessment & Plan Assessment & Plan (1) Urinary retention: Code(s): R33.9 - Retention of urine, unspecified Category: Medical Plan In office voiding trial performed; patient's son call back the office to report patient had been voiding at home independently. We discussed at length potential causes of urinary retention. Discussed potential for near future in office cystoscopy for further assessment evaluation. Will increase Flomax to 0.8mg daily. Start finasteride as discussed and prescribed. Will obtain PSA in 6-8 weeks given recent Lombardi catheter. Will obtain retroperitoneal ultrasound for further assessment evaluation. Discussed importance of seeking medical treatment if unable to urinate and or worsening symptoms. Follow-up in 2-3 months with imaging and lab to be completed prior; or sooner with any issues, concerns, and or questions. Orders: Orders AMB Bladder/Catheter Procedure 07/22/24 R33.8 - Other retention of urine AMB Post Void Residual by ultrasound 07/22/24 N39.41 - Urge incontinence Medications: New tamsulosin (Flomax) 0.8 mg (2 x 0.4 mg) PO BEDTIME 90 days 180 caps 2RF finasteride 5 mg PO DAILY 90 days 90 tabs 2RF N40.1 - Benign prostatic hyperplasia with lower urinary tract symptoms, R33.9 - Retention of urine, unspecified Patient Instructions: The patient had an opportunity to ask questions regarding the treatment plan. All questions were answered. Physical exam, labs, and imaging were discussed and reviewed in detail. As well as risks, benefits, and discussion of treatment choices. No major barriers to understanding were identified. The patient expressed understanding and agreement with the above treatment plan. The patient was made aware they should contact our office by phone for worsening of their current condition, the appearance of new symptoms, or with any questions or concerns. Compliance is encouraged with any medications and follow up testing that is ordered. It is a privilege to be allowed the opportunity to participate in? your urological care.? Again, if you have any questions or concerns If you have any questions or concerns please do not hesitate to contact me. The office is [phone]. This note is constructed using voice recognition software. While every effort has been made to ensure accuracy architecture internship errors may have been included. Yours sincerely, KELLIE Strange-SERGIO Coding Level of Care Code New Pt Level 4 (21300) Diagnoses Urinary retention R33.9 CPT Codes Bladder/Catheter Procedure - CPT: 15228-Nteowswocw of Bladder ([id number])
== END 2024-07-22 09:20 | disposition home or self-care (01) ==
PROVIDERS: Visit Provider Nurse Practitioner Family
DX: R33.9 Retention of urine, unspecified (principal)
CPT/HCPCS: 51700; 99204

== ENCOUNTER → 2024-07-22 08:04 | Outpatient (BNVA) | payer MEDICARE, MEDICAID, SELFPAY | PROVIDERS: Visit Provider Nurse Practitioner Family | DX: N40.1 Benign prostatic hyperplasia with lower urinary tract symptoms (principal); R33.8 Other retention of urine; N39.41 Urge incontinence | CPT/HCPCS: 51700; 99202 ==

== ENCOUNTER 2024-08-02 11:40 | Outpatient (REF) | payer MEDICARE, MEDICAID, SELFPAY ==
[2024-08-03 13:32] LABS: Appearance Urine Cloudy; Color Urine Yellow; Glucose Urine UA Negative (Negative); Leukocyte Esterase Urine Large (3+) (Negative); Nitrite Urine Negative (Negative); UMIC TRIGGER UA YES; Urine Blood Small (1+) (Negative); Urine Ketones Negative (Negative); Urine Protein Negative (Neg-Trace)
[2024-08-03 13:48] LABS: Bacteria Urine None Seen (None Seen); Hyaline Casts Urine 0-2 /LPF (0-2); RBC Urine 0-2 /HPF (0-2); Squamous Epithelial Cell Urine 0-2 /HPF (0-2); WBC Urine >50 /HPF (0-5)
== END 2024-08-02 11:41 | disposition home or self-care (01) ==
LOC: HO.HMGCLNP 11:40
PROVIDERS: Visit Provider Nurse Practitioner Family
DX: R33.9 Retention of urine, unspecified (principal)
CPT/HCPCS: 81001; 87086

== ENCOUNTER 2024-10-14 08:25 | Outpatient (REF) | payer MEDICARE, MEDICAID, SELFPAY ==
--- NOTE | ~2024-10-14 | US_ITS ---
CLINICAL HISTORY: R33.9 - Retention of urine, unspecified Exam: Ultrasound of the kidneys and bladder, complete. Comparison: None. Findings: Right kidney measures 10.3 x 5.8 x 6.5 cm in size. Right kidney is of normal echotexture without focal lesion, nephrolithiasis, or hydronephrosis. Left kidney measures 11.3 x 6.1 x 5.7 cm in size. Simple cysts within the upper pole of the left kidney measures 4.0 x 4.9 x 3.9 cm in size. No solid mass, stone, or hydronephrosis. Prevoid bladder volume is 190 mL. Wall thickening hypervascularity along the posterior wall of the urinary bladder to the left of midline measuring up to 9 mm. Echogenic debris is also seen within the lumen of the urinary bladder. Postvoid bladder volume is 88 mL. Bilateral ureteral jets are evident. Prostate gland is of normal size. Impression: 1. Negative ultrasound of the right kidney. 2. Simple cyst within the left kidney. 3. Wall thickening of the urinary bladder with hypervascularity. Although this may simply be related to cystitis, more aggressive lesions are not excluded. Correlation with urinalysis and cystoscopy is suggested. 4. Moderate postvoid residual. This document has been electronically signed by: Alberto Anderson MD on 10/16/2024 08:44:33
--- OUTSIDE RECORDS SUMMARY | 2024-10-14 08:36 | XMS_ITS | Continuity of Care Document ---
Author Organization [facility] Address [address] [place] [address] Phone [phone] Social History Type Date Description Comments Sex Unknown Medical Devices Description No Information Available Encounters Description No Information Available Assessments Description No Information Available Plan of Treatment No Information Available Functional Status Description No Information Available Mental Status Description No Information Available Referrals Description No Information Available
--- OUTSIDE RECORDS SUMMARY | 2024-10-14 08:36 | XMS_ITS | Clinical Summary ---
Author Organization Unknown Care Team Providers Care Assembly And Packing Supervisor Name Role Phone GONZALO GAYTAN, JESUS Unavailable Unavailable ELIZABETH RN, ROBERTO Unavailable Unavailable KATHERINE PT, CONSTANCE Unavailable Unavailable Payers Payer Name Policy Type Policy Number Effective Date Expira tion Date MEDICARE - NGS CT/CT - PD [id number] MEDICAID [facility] [id number] Problems Condition Name Condition Details Condition Category Status Onset Date Resolution Date Last Treatment Date Treating Clinician Comments TYPE 2 DIABETES MELLITUS WITHOUT COMPLICATION S Active 09-29 00:00: 00 ENCOUNTER FOR FITTING AND ADJUSTMENT OF URINARY DEVICE Active 09-29 00:00: 00 RETENTION OF URINE, UNSPECIFIED Active 09-29 00:00: 00 PSORIATIC ARTHRITIS MUTILANS Active 09-29 00:00: 00 HALF-WAY (CURRENT) USE OF INSULIN Active 09-29 00:00: 00 UNSPECIFIED ASTHMA, UNCOMPLICATE D Active 09-29 00:00: 00 ESSENTIAL (PRIMARY) HYPERTENSION Active 09-29 00:00: 00 DVRTCLOS OF INTEST, PART UNSP, W/O PERF OR ABSCESS W/O BLEED Active 09-29 00:00: 00 UNSPECIFIED GLAUCOMA Active 09-29 00:00: 00 HYPERLIPIDEM IA, UNSPECIFIED Active 09-29 00:00: 00 Obesity, class 1 Active 09-29 00:00: 00 BODY MASS INDEX [BMI]30.0-30 .9, ADULT Active 09-29 00:00: 00 BASAL CELL CARCINOMA OF SKIN OF OTHER PART OF TRUNK Active 2023-09 00:00: 00 ACQUIRED ABSENCE OF OTHER SPECIFIED PARTS OF DIGESTIVE TRACT Active 09-29 00:00: 00 OTHER SEQUELAE OF NONTRAUMATIC INTRACEREBRA L HEMORRHAGE Active 09-29 00:00: 00 WEAKNESS Active 09-29 00:00: 00 TELEGRAPH DISPATCHER (CURRENT) USE OF ASPIRIN Active 09-29 00:00: 00 Allergies, Adverse Reactions, Alerts Allergy Name Allergy Type Status Severity Reaction(s) Onset Date Inactive Date Treating Clinician Comments NKA Propensity to adverse reactions Active 2024-05 15:26:3 2 Medications Ordered Medication Name Filled Medication Name Start Date Stop Date Current Medication? Ordering Clinician Indication Dosage Frequency Signature (SIG) Comments Components lisinopril 20 mg-hydrochl orothiazide 12.5 mg tablet 06-16 00:00: 00 Yes [id number] 1 tablet DAILY 1 tablet DAILY (route: oral) Med Classific ation: Cardiovas cular Therapy Agents methotrexat e sodium 2.5 mg tablet 06-16 00:00: 00 Yes [id number] 20 mg ONCE A WEEK 20 mg ONCE A WEEK (route: oral) Med Classific ation: Antineopl astics mupirocin 2 % topical ointment 06-09 00:00: 00 Yes [id number] Per instruc tions TWICE DAILY TO EACH BIOPSY SITE FOR 14 DAYS Per instructio ns TWICE DAILY TO EACH BIOPSY SITE FOR 14 DAYS (route: topical) Med Classific ation: Dermatolo gical atorvastati n 80 mg tablet 06-16 00:00: 00 Yes [id number] 1 tablet DAILY 1 tablet DAILY (route: oral) Med Classific ation: Cardiovas cular Therapy Agents Lantus Solostar U-100 Insulin 100 unit/mL (3 mL) subcutaneou s pen 06-16 00:00: 00 Yes [id number] 60 unit SUBCUTANEO USLY NIGHTLY AT BEDTIME 60 unit SUBCUTANEO USLY NIGHTLY AT BEDTIME (route: subcutaneo us) Med Classific ation: Endocrine albuterol sulfate HFA 90 mcg/actuati on aerosol inhaler 06-16 00:00: 00 Yes [id number] 2 puff EVERY 4 HOURS 2 puff EVERY 4 HOURS (route: inhalation ) Med Classific ation: Respirato ry Therapy Agents aspirin 81 mg tablet,january yed release 06-16 00:00: 00 Yes [id number] 1 tablet BEDTIME 1 tablet BEDTIME (route: oral) Med Classific ation: Hematolog ical Agents folic acid 1 mg tablet 06-16 00:00: 00 Yes [id number] 1 tablet DAILY 1 tablet DAILY (route: oral) Med Classific ation: Electroly te Balance-N utritiona l Products insulin aspart (U-100) 100 unit/mL (3 mL) subcutaneou s pen 06-16 00:00: 00 Yes [id number] 2-10 unit 3 TIMES DAILY 2-10 unit 3 TIMES DAILY (route: subcutaneo us) Med Classific ation: Endocrine krill oil 500 mg-150 mg-45 mg-75 mg capsule 06-16 00:00: 00 Yes [id number] 1 capsule DAILY 1 capsule DAILY (route: oral) Med Classific ation: Cardiovas cular Therapy Agents omeprazole 20 mg capsule,del ayed release 06-16 00:00: 00 Yes [id number] 1 capsule DAILY 1 capsule DAILY (route: oral) Med Classific ation: Gastroint estinal Therapy Agents Tylenol Extra Strength 500 mg tablet 06-16 00:00: 00 Yes [id number] 2 tablet DAILY 2 tablet DAILY (route: oral) Med Classific ation: Analgesic , Anti-infl ammatory or Antipyret ic Vitamin D3 125 mcg (5,000 unit) tablet 06-16 00:00: 00 Yes [id number] 1 tablet DAILY 1 tablet DAILY (route: oral) Med Classific ation: Electroly te Balance-N utritiona l Products finasteride 5 mg tablet 2023-09 00:00: 00 Yes [id number] 1 tablet DAILY 1 tablet DAILY (route: oral) Med Classific ation: Genitouri nary Therapy tamsulosin 0.4 mg capsule 2023-09 00:00: 00 Yes [id number] 2 capsule BEDTIME 2 capsule BEDTIME (route: oral) Med Classific ation: Genitouri nary Therapy Immunizations Ordered Immunization Name Filled Immunization Name Date Status Comments Refusal Reason INFLUENZA, LAIV (LIVE VIRUS) 2024-06-17 00:00:00 Vital Signs Vital Name Observation Time Observation Value Commen ts Temperature 2024-09-13 08:17:00.000 97.7 [degF] Temperature 2024-09-06 18:33:00.000 97 [degF] Temperature 2024-09-02 09:18:00.000 97.8 [degF] Temperature 2024-08-25 09:24:00.000 98 [degF] Temperature 2024-08-16 09:18:00.000 97.3 [degF] Pulse 2024-09-13 08:17:00.000 76 /min Pulse 2024-09-06 18:33:00.000 68 /min Pulse 2024-09-02 09:18:00.000 88 /min Pulse 2024-08-25 09:24:00.000 78 /min Pulse 2024-08-16 09:18:00.000 72 /min O2 Saturation (%) 2024-09-13 08:17:00.000 96 % O2 Saturation (%) 2024-09-06 18:33:00.000 97 % O2 Saturation (%) 2024-08-25 09:24:00.000 97 % O2 Saturation (%) 2024-08-16 09:18:00.000 98 % Respirations 2024-09-13 08:17:00.000 18 /min Respirations 2024-09-06 18:33:00.000 18 /min Respirations 2024-09-02 09:18:00.000 18 /min Respirations 2024-08-25 09:24:00.000 17 /min Systolic Blood Pressure 2024-09-13 08:17:00.000 124 mm [Hg] Systolic Blood Pressure 2024-09-06 18:33:00.000 128 mm [Hg] Systolic Blood Pressure 2024-09-02 09:18:00.000 126 mm [Hg] Systolic Blood Pressure 2024-08-25 09:24:00.000 132 mm [Hg] Systolic Blood Pressure 2024-08-16 09:18:00.000 118 mm [Hg] Diastolic Blood Pressure 2024-09-13 08:17:00.000 68 mm [Hg] Diastolic Blood Pressure 2024-09-06 18:33:00.000 74 mm [Hg] Diastolic Blood Pressure 2024-09-02 09:18:00.000 68 mm [Hg] Diastolic Blood Pressure 2024-08-25 09:24:00.000 64 mm [Hg] Diastolic Blood Pressure 2024-08-16 09:18:00.000 62 mm [Hg] Plan of Treatment Planned Activity Planned Date Details Comments Future Scheduled Test SKILLED NU RSE TO EVALUATE PATIENT, IDENTIFY PRIMARY AND CO-MORBID CONDITIONS CODED PER CODING GUIDELINES, AND DEVELOP PATIENT SPECIFIC PLAN OF CARE THAT INCLUDES PATIENT GOAL FOR HOME HEALTH. [code = SKILLED NURSE TO EVALUATE PATIENT, IDENTIFY PRIMARY AND CO-MORBID CONDITIONS CODED PER CODING GUIDELINES, AND DEVELOP PATIENT SPECIFIC PLAN OF CARE THAT INCLUDES PATIENT GOAL FOR HOME HEALTH.] Future Scheduled Test SKILLED NU RSE TO REVIEW PATIENT MEDICATIONS. INSTRUCT PATIENT/CAREGIVER ON MONITORING OF EFFECTIVENESS, ADVERSE DRUG REACTIONS, SIDE EFFECTS OF ALL MEDICATIONS (PRESCRIPTION/-OTC), AND HOW AND WHEN TO REPORT PROBLEMS. [code = SKILLED NURSE TO REVIEW PATIENT MEDICATIONS. INSTRUCT PATIENT/CAREGIVER ON MONITORING OF EFFECTIVENESS, ADVERSE DRUG REACTIONS, SIDE EFFECTS OF ALL MEDICATIONS (PRESCRIPTION/-OTC), AND HOW AND WHEN TO REPORT PROBLEMS.] Future Scheduled Test SKILLED NU RSE FOR O/A, TEACHING, AND MANAGEMENT OF HTN, HLD. [code = SKILLED NURSE FOR O/A, TEACHING, AND MANAGEMENT OF HTN, HLD.] Future Scheduled Test SKILLED NU RSE FOR O/A, TEACHING RELATED TO GERD, DIVERTICULITIS FOR EARLY IDENTIFICATION OF EXACERBATION OF DISEASE PROCESS. [code = SKILLED NURSE FOR O/A, TEACHING RELATED TO GERD, DIVERTICULITIS FOR EARLY IDENTIFICATION OF EXACERBATION OF DISEASE PROCESS.] Future Scheduled Test SKILLED NU RSE FOR O/A, TEACHING AND MANAGEMENT OF URINARY RETENTION FOR EARLY IDENTIFICATION OF EXACERBATION OF DISEASE PROCESS [code = SKILLED NURSE FOR O/A, TEACHING AND MANAGEMENT OF URINARY RETENTION FOR EARLY IDENTIFICATION OF EXACERBATION OF DISEASE PROCESS] Future Scheduled Test SKILLED NU RSE FOR O/A OF RESPIRATORY SYSTEM TO IDENTIFY CHANGES ASSOCIATED WITH EXACERBATION AND TO PROVIDE SKILLED TEACHING ON MANAGEMENT OF ASTHMA RESPIRATORY DISEASE PROCESS. [code = SKILLED NURSE FOR O/A OF RESPIRATORY SYSTEM TO IDENTIFY CHANGES ASSOCIATED WITH EXACERBATION AND TO PROVIDE SKILLED TEACHING ON MANAGEMENT OF ASTHMA RESPIRATORY DISEASE PROCESS.] Future Scheduled Test SKILLED NU RSE TO PERFORM AND RECORD BLOOD SUGAR READING, AND PRN FOR SIGNS AND SYMPTOMS OF HYPO/HYPERGLYCEMIA. [code = SKILLED NURSE TO PERFORM AND RECORD BLOOD SUGAR READING, AND PRN FOR SIGNS AND SYMPTOMS OF HYPO/HYPERGLYCEMIA.] Future Scheduled Test SKILLED NU RSE FOR O/A AND SKILLED TEACHING RELATED TO ALTERED SKIN INTEGRITY BACK SURGICAL SITE SP SKIN CARE LESION REMOVAL [code = SKILLED NURSE FOR O/A AND SKILLED TEACHING RELATED TO ALTERED SKIN INTEGRITY BACK SURGICAL SITE SP SKIN CARE LESION REMOVAL] Future Scheduled Test SKILLED NU RSE FOR O/A AND TEACHING OF DIABETIC MANAGEMENT INCLUDING BLOOD SUGAR MONITORING/USE OF GLUCOMETER, DIABETIC DIET, LOWER EXTREMITY SKIN INSPECTION, PROPER SKIN/FOOT CARE, AND SIGNS AND SYMPTOMS HYPO/HYPERGLYCEMIA TO REPORT. [code = SKILLED NURSE FOR O/A AND TEACHING OF DIABETIC MANAGEMENT INCLUDING BLOOD SUGAR MONITORING/USE OF GLUCOMETER, DIABETIC DIET, LOWER EXTREMITY SKIN INSPECTION, PROPER SKIN/FOOT CARE, AND SIGNS AND SYMPTOMS HYPO/HYPERGLYCEMIA TO REPORT.] Future Scheduled Test PATIENT JONES S A RISK OF HOSPITALIZATION AND ED USE. SKILLED NURSE TO ESTABLISH SUPPORT MEASURES TO MINIMIZE RISK OF HOSPITALIZATION AND ED USE, AND INSTRUCT PATIENT/CAREGIVER ON METHODS TO REDUCE AVOIDABLE HOSPITALIZATION AND ED USE. [code = PATIENT HAS A RISK OF HOSPITALIZATION AND ED USE. SKILLED NURSE TO ESTABLISH SUPPORT MEASURES TO MINIMIZE RISK OF HOSPITALIZATION AND ED USE, AND INSTRUCT PATIENT/CAREGIVER ON METHODS TO REDUCE AVOIDABLE HOSPITALIZATION AND ED USE.] Future Scheduled Test SKILLED NU RSE TO PROVIDE INSTRUCTION TO PATIENT/CAREGIVER RELATED TO DISCHARGE PLANNING. [code = SKILLED NURSE TO PROVIDE INSTRUCTION TO PATIENT/CAREGIVER RELATED TO DISCHARGE PLANNING.] Future Scheduled Test SKILLED NU RSE TO PERFORM HOME SAFETY AND FALL ASSESSMENT AND PROVIDE INSTRUCTION TO IMPLEMENT HOME SAFETY AND FALL PREVENTION STRATEGIES. [code = SKILLED NURSE TO PERFORM HOME SAFETY AND FALL ASSESSMENT AND PROVIDE INSTRUCTION TO IMPLEMENT HOME SAFETY AND FALL PREVENTION STRATEGIES.] Future Scheduled Test SKILLED NU RSE FOR OBSERVATION AND ASSESSMENT OF PATIENTS PAIN LEVEL AND EFFECTIVENESS OF PAIN MANAGEMENT REGIMEN. SKILLED NURSE TO INSTRUCT PATIENT/CAREGIVER REGARDING PHARMACOLOGIC AND NON-PHARMACOLOGIC PAIN CONTROL MEASURES. SKILLED NURSE TO REPORT TO PHYSICIAN IF PAIN IS UNCONTROLLED WITH CURRENT PAIN MANAGEMENT REGIMEN. [code = SKILLED NURSE FOR OBSERVATION AND ASSESSMENT OF PATIENTS PAIN LEVEL AND EFFECTIVENESS OF PAIN MANAGEMENT REGIMEN. SKILLED NURSE TO INSTRUCT PATIENT/CAREGIVER REGARDING PHARMACOLOGIC AND NON-PHARMACOLOGIC PAIN CONTROL MEASURES. SKILLED NURSE TO REPORT TO PHYSICIAN IF PAIN IS UNCONTROLLED WITH CURRENT PAIN MANAGEMENT REGIMEN.] Future Scheduled Test SKILLED NU RSE TO ASSESS PATIENT'S SKIN INTEGRITY AND INSTRUCT PATIENT/CAREGIVER ON MEASURES TO PREVENT PRESSURE ULCERS. [code = SKILLED NURSE TO ASSESS PATIENT'S SKIN INTEGRITY AND INSTRUCT PATIENT/CAREGIVER ON MEASURES TO PREVENT PRESSURE ULCERS.] Goal 2024-08-11 Patient Goal - TO NOT NEED W ALKER ANYMORE Goal 2024-09-13 Patient Goal - TO NOT NEED W ALKER ANYMORE Goal Provider Goal - A PLAN OF CARE WILL BE ESTABLISHED THAT MEETS PATIENT'S SENIOR CARE NEEDS AND INCLUDES PATIENT GOAL FOR HOME HEALTH. Goal Provider Goal - PATIENT/CAREGIVER WILL VERBALIZE UNDERSTANDING OF EDUCATION PROVIDED ON MEDICATIONS BY THE END OF THE CERTIFICATION PERIOD. Goal Provider Goal - PATIENT/CAREGIVER WILL VERBALIZE/DEMONSTRATE MANAGEMENT OF CARDIAC DISEASE PROCESS AND EXACERBATIONS WILL BE IDENTIFIED AND PROMPTLY REPORTED THROUGHOUT THE CERTIFICATION PERIOD. Goal Provider Goal - EXACERBATIONS OF GASTROINTESTINAL DISEASE WILL BE PROMPTLY IDENTIFIED AND INTERVENTIONS IMPLEMENTED TO MINIMIZE RISKS TO PATIENT BY END OF EPISODE. Goal Provider Goal - PATIENT/CAREGIVER WILL VERBALIZE UNDERSTANDING OF GENITOURINARY DISEASE PROCESS, AND EXACERBATIONS OF GENITOURINARY DISEASE WILL BE PROMPTLY IDENTIFIED FOR EARLY INTERVENTION THROUGHOUT THE CERTIFICATION PERIOD. Goal Provider Goal - PATIENT/CAREGIVER WILL VERBALIZE/DEMONSTRATE MANAGEMENT OF RESPIRATORY DISEASE PROCESS. CHANGES IN RESPIRATORY STATUS WILL BE IDENTIFIED AND REPORTED TO PHYSICIAN FOR PROMPT INTERVENTION THROUGHOUT THE CERTIFICATION PERIOD. Goal Provider Goal - BLOOD SUGAR READING WILL BE OBTAINED ORDERED THROUGHOUT CERTIFICATION PERIOD. Goal Provider Goal - PATIENT/CAREGIVER WILL VERBALIZE/DEMONSTRATE UNDERSTANDING OF TEACHING RELATED TO ALTERED SKIN INTEGRITY BY END OF CERTIFICATION PERIOD. Goal Provider Goal - PATIENT/CAREGIVER WILL VERBALIZE/DEMONSTRATE KNOWLEDGE OF DIABETIC MANAGEMENT. CHANGES IN DIABETIC STATUS WILL BE IDENTIFIED AND REPORTED TO PHYSICIAN FOR PROMPT INTERVENTION THROUGHOUT THE CERTIFICATION PERIOD. Goal Provider Goal - PATIENT WILL HAVE SUPPORT MEASURES ESTABLISHED TO PREVENT HOSPITALIZATION AND ED USE AND PATIENT/CAREGIVER WILL VERBALIZE/DEMONSTRATE METHODS TO REDUCE AVOIDABLE HOSPITALIZATION AND ED USE BY END OF EPISODE. Goal Provider Goal - PATIENT/CAREGIVER WILL VERBALIZE UNDERSTANDING OF DISCHARGE PLANNING INSTRUCTIONS BY DATE OF DISCHARGE. Goal Provider Goal - PATIENT/CAREGIVER WILL VERBALIZE/DEMONSTRATE EFFECTIVE HOME SAFETY AND FALL PREVENTION STRATEGIES THROUGHOUT CERTIFICATION PERIOD. Goal Provider Goal - PATIENT/CAREGIVER WILL DEMONSTRATE UNDERSTANDING OF PHARMACOLOGIC AND NONPHARMACOLOGIC PAIN CONTROL MEASURES AND PATIENT WILL HAVE IMPROVEMENT IN PAIN INTERFERING WITH ACTIVITY EVIDENCED BY PAIN CONTROLLED AT LEVEL OF 7 OR LESS BY END OF CERTIFICATION PERIOD. Goal Provider Goal - PATIENT/CAREGIVER WILL VERBALIZE UNDERSTANDING OF PRESSURE ULCER PREVENTION BY END OF THE EPISODE. Reason for Visit INDEPENDENT IN THE COMMUNITY Encounters Start Date/Time End Date/Time Encounter Type Admission Type Attending [facility] Care Department Encounter ID Discharge Date Discharge Status Discharge Condition Discharge Reason Percent Goals Met 2024-06-16 00:00:00 2024-09-13 00:00:00 [facility] [id number] 2024-09-13 00:00:00 DISCHARGE TO HOME OR SELF CARE [facility]DEPENDEN T IN THE COMMUNITY GOALS MET ( ONLY) 100.00
[2024-10-14 11:13] LABS: Prostate Specific Antigen 1.43 ng/mL (<0.05-4.0)
== END 2024-10-14 08:26 | disposition home or self-care (01) ==
LOC: HO.HMGCX 08:25
PROVIDERS: PCP Family Medicine; Visit Provider Nurse Practitioner Family
DX: R33.9 Retention of urine, unspecified (principal); Z12.5 Encounter for screening for malignant neoplasm of prostate
CPT/HCPCS: 36415; 76770; 84153

== ENCOUNTER → 2024-10-14 08:28 | Outpatient (BNV) | payer MEDICARE, MEDICAID, SELFPAY | PROVIDERS: PCP Family Medicine; Visit Provider Radiology Diagnostic Radiology | DX: R33.9 Retention of urine, unspecified (principal) | CPT/HCPCS: 76770 ==

== ENCOUNTER 2024-10-21 08:39 | Outpatient (AMB) | payer MEDICARE, MEDICAID, SELFPAY ==
--- NOTE | 2024-10-21 08:40 | A.OFFVIS_ITS ---
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[employer] And Grounds Supervisor Required: No Allergies No Known Allergies Allergy (Verified 10/21/24 09:42) Medication List - Last Reconciled 10/21/24 by KELLIE Strange-SERGIO acetaminophen 1,000 mg PO BID albuterol sulfate 90 mcg/actuation (Ventolin HFA) 2 puffs inhalation Q4H PRN aspirin 81 mg PO DAILY atorvastatin 80 mg PO BEDTIME carboxymethylcellulose sodium 1% 1 drp ophthalmic (eye) QID PRN cholecalciferol (vitamin D3) (Vitamin D3) 125 mcg PO DAILY fexofenadine 180 mg PO DAILY finasteride 5 mg PO DAILY 90 days folic acid 1 mg PO SUMOTUTHFRSA@0900 insulin aspart U-100 See Protocol sliding scale doses subcut TIDAC insulin glargine (Lantus Solostar U-100 Insulin) 55 units subcut BEDTIME krill dxk-jpehg-[id number]-dha-epa 150-450 mg 1 cap PO DAILY lisinopril-hydrochlorothiazide 20-12.5 mg 1 tab PO DAILY methotrexate sodium 20 mg PO WE@0900 omeprazole 20 mg PO DAILY@0630 tamsulosin (Flomax) 0.8 mg (2 x 0.4 mg) PO BEDTIME 90 days HPI Comments Details: Sandeep is a very pleasant 64-year-old male patient who was accompanied his ex- at today's office visit. He has a past medical history of transient cerebral ischemia, skin cancer, GERD, asthma, psoriatic arthritis, obesity, legionnaires disease, intraparenchymal hemorrhage of brain, hypertension, hyperlipidemia, glaucoma, diverticulitis, type 1 diabetes, and multiple cerebrovascular accidents (2019, 2020, and 2023). He is being followed up on today via video telehealth. Of note, patient was seen approximately 3 months ago presents to the office today as a new patient for urinary retention at which time a PSA and retroperitoneal ultrasound were ordered for further assessment evaluation. In discussion with the patient today he reports being unable to make it to today's office visit as he has Charles having issues with ambulation. Retroperitoneal ultrasound results reviewed 10/23 bilateral kidneys with no nephrolithiasis or hydronephrosis. Left kidney with simple cysts measuring 4.9 cm. Pre void bladder volume is a proximally 190 mL. Postvoid bladder volume is approximately 90 mL. Bladder wall thickening with hypervascularity along the posterior wall of the urinary bladder. Echogenic debris is also seen. Recommendation for correlation with urinalysis since cystoscopy suggested per radiology report. Prostate gland is of normal size. PSA 10/23 1.4. He does feel he is urinating more effectively with increase in Flomax to 0.8 mg daily. He denies hematuria, dysuria, foul smelling urine, changes to urinary stream, flank pain, fever, and or chills. He does report episodes of incontinence given his mobility. However, he does not find this bothersome. We discussed in office visit to assess urinalysis with cytology as well as postvoid residual. We discussed at length potential causes of urinary retention/incomplete bladder emptying as well as further workup in risks and benefits of these interventions. He otherwise offers no other issues or concerns at this time. [facility] Medical History Transient cerebral ischemia Skin cancer Tubular adenoma GERD (gastroesophageal reflux disease) Asthma Psoriatic arthritis Obesity, Class I, BMI 30.0-34.9 (see actual BMI) Legionnaires' disease Intraparenchymal hemorrhage of brain HTN (hypertension) Hyperlipidemia Glaucoma Diverticulosis Diabetes CVA (cerebral vascular accident) Surgical History Hx of melanoma excision History of partial colectomy Social History Are you a primary animal care assistant to a significant other at home: No Do you presently have visiting nurse or other home services: No Unable to assess alcohol history related to: Unknown Patient Tobacco Use Status: Never used Tobacco Advance Directives Date on File: 05/15/23 Review of Systems Const Reports as per [facility] Eyes Reports no additional complaints ENT Reports no additional complaints Card Reports as per [facility] Resp Reports no additional complaints GI Reports as per [facility] Reports as per [facility] Musc Reports as per [facility] Neuro Reports as per [facility] Psych Reports no additional complaints Endo Reports as per [facility] Jose Francisco/Lymph Reports no additional complaints Aller/Immun Reports no additional complaints Physical Exam Const General: cooperative, healthy appearing, comfortable, no acute distress, well developed, alert and awake Orientation/consciousness: oriented to person Resp Effort & Inspection: normal respiratory effort and able to speak in complete sentences Neuro General: oriented to person Psych Affect: normal affect Attitude: cooperative Thought process: Normal thought process present Thought content: Normal thought content present Insight: Fair insight present (Psych) Judgement: Fair judgement present (Psych) Telehealth Telehealth Telehealth Platform: [employer] Location of provider rendering services: practice address Location of patient: address on file Patient Identification confirmed using: Name, : Yes Telehealth method: video Patient verbally consented to treatment: Yes Patient verbally consented to billing insurance company: Yes Patient informed of any privacy concerns related to visit: Yes Minutes spent on Phone/Video with Pt.: 15 Results Reviewed Results Reviewed: Date of Service: 10/14/24 Findings: Right kidney measures 10.3 x 5.8 x 6.5 cm in size. Right kidney is of normal echotexture without focal lesion, nephrolithiasis, or hydronephrosis. Left kidney measures 11.3 x 6.1 x 5.7 cm in size. Simple cysts within the upper pole of the left kidney measures 4.0 x 4.9 x 3.9 cm in size. No solid mass, stone, or hydronephrosis. Prevoid bladder volume is 190 mL. Wall thickening hypervascularity along the posterior wall of the urinary bladder to the left of midline measuring up to 9 mm. Echogenic debris is also seen within the lumen of the urinary bladder. Postvoid bladder volume is 88 mL. Bilateral ureteral jets are evident. Prostate gland is of normal size. Impression: 1. Negative ultrasound of the right kidney. 2. Simple cyst within the left kidney. 3. Wall thickening of the urinary bladder with hypervascularity. Although this may simply be related to cystitis, more aggressive lesions are not excluded. Correlation with urinalysis and cystoscopy is suggested. 4. Moderate postvoid residual. Assessment & Plan Assessment & Plan (1) Urinary retention: Code(s): R33.9 - Retention of urine, unspecified Category: Medical (2) Renal cyst: Code(s): N28.1 - Cyst of kidney, acquired Category: Medical (3) Bladder wall thickening: Code(s): N32.89 - Other specified disorders of bladder Category: Medical (4) Cystitis: Code(s): N30.90 - Cystitis, unspecified without hematuria Category: Medical Plan Recent retroperitoneal ultrasound results reviewed with the patient today; as noted above. Recent PSA results reviewed with the patient today; as noted above. Continue Flomax and finasteride as prescribed. We discussed near future in office cystoscopy for further assessment evaluation. Discussed in office visit with nursing to assess PVR, UA, and send urine for cytology. We discussed importance of timed/scheduled voiding given decreased mobility. Follow-up next week with nursing as discussed; will make plan of care with provider at nursing visit pending urinalysis and PVR results. Orders: Orders Urine Cytology Today N30.90 - Cystitis, unspecified without hematuria Patient Instructions: The patient had an opportunity to ask questions regarding the treatment plan. All questions were answered. Physical exam, labs, and imaging were discussed and reviewed in detail. As well as risks, benefits, and discussion of treatment choices. No major barriers to understanding were identified. The patient expressed understanding and agreement with the above treatment plan. The patient was made aware they should contact our office by phone for worsening of their current condition, the appearance of new symptoms, or with any questions or concerns. Compliance is encouraged with any medications and follow up testing that is ordered. It is a privilege to be allowed the opportunity to participate in? your urological care.? Again, if you have any questions or concerns If you have any questions or concerns please do not hesitate to contact me. The office is [phone]. This note is constructed using voice recognition software. While every effort has been made to ensure accuracy trust advisor errors may have been included. Yours sincerely, SHAHRAM Strange Coding Level of Care Code Tele Est Pt Level 3 (86076) Diagnoses Urinary retention R33.9 Renal cyst N28.1 Bladder wall thickening N32.89 Cystitis N30.90
== END 2024-10-21 09:25 | disposition home or self-care (01) ==
LOC: HO.HUSH 08:39
PROVIDERS: PCP Family Medicine; Visit Provider Nurse Practitioner Family
DX: R33.9 Retention of urine, unspecified (principal); N28.1 Cyst of kidney, acquired; N32.89 Other specified disorders of bladder; N30.90 Cystitis, unspecified without hematuria
CPT/HCPCS: 99213

== ENCOUNTER 2024-11-17 10:05 | Outpatient (AMB) | payer MEDICARE, MEDICAID, SELFPAY ==
--- OUTSIDE RECORDS SUMMARY | 2024-11-17 10:33 | XMS_ITS | Patient Health Record ---
Author Organization [facility] Address [address] [place] [address] Care Team Providers Care Operating Room Technologist Name Role Phone Krishan Alvarado Primary Care Provider Reyna Godoy Unavailable [phone] Allergies No Known Allergies Reason For Referral No Information Medications Medication SIG (Take, Route, Frequency, Duration) Notes Start Date End Date Status Methotrexate 20mg Active HumaLOG Active Lisinopril 20 MG 1 tablet Orally Once a day Active Tamsulosin HCl Activ e Lantus Active Tylenol 500mg Active Nancy Active Omeprazole 20 MG 1 capsule 1/2 to 1 h our before morning meal Orally Once a day Active Ventolin HFA Active Folic Acid 1 MG 1 tablet Orally Once a day Active Atorvastatin Calcium 80 MG 1 tablet Oral ly Once a day Active Social History Tobacco Use: Social History Observation Description Date Details (start date - stop date) Never Smoker NA - NA Tobacco use other than smoking: Question Answer Notes Are you an other tobacco user? No Tobacco Control (Standard) Question Answer Notes Tobacco use: Nonsmoker Additional Findings: Tobacco non-user Current no nsmoker AUDIT-C (Standard) Question Answer Notes Did you have a drink containing alcohol in the p ast year? No Points 0 Interpretation Negative Problems Problem Type SNOMED Code ICD Code Onset Dates Problem Status W/U Status Risk Notes Problem Polyneuropathy due to type 2 diabetes mellitus (302454602) Type 2 diabetes mellitus with diabetic polyneuropathy (E11.42) Active confirmed Vital Signs Blood pressure diastolic 70 mm Hg 10/20/2024 Height 5 FT 9INCH in 10/20/2024 Blood pressure systolic 130 mm Hg 10/20/2024 Weight 198 lbs 10/20/2024 BMI 29.24 kg/m2 10/20/2024 Procedures Procedure Date Ordered Date Performed Result Body Sit e 02435-GIOQLWE NAIL, 6 OR MORE 10/20/2024 N/A Encounters Encounter Location Date Provider Diagnosis [facility] [address] [address] 10/20/2024 Reyna Chavarria Other hammer toe(s) (acquired), right foot M20.41 ; Tinea unguium B35.1 ; Other hammer toe(s) (acquired), left foot M20.42 and Type 2 diabetes mellitus with diabetic polyneuropathy E11.42 Assessments Encounter Date Diagnosis (ICD Code) Assessment Notes Treatment Notes Treatment Clinical Notes Section Notes 10/20/2024 Other hammer toe(s) (acquired), right foot (ICD-10 - M20.41) Patient Educated with: DIABETIC FOOT CARE INSTRUCTIONS. pdf (DIABETIC FOOT CARE INSTRUCTIONS. pdf) 10/20/2024 Other hammer toe(s) (acquired), left foot (ICD-10 - M20.42) 10/20/2024 Tinea unguium (ICD-10 - B35.1) 10/20/2024 Type 2 diabetes mellitus with diabetic polyneuropathy (ICD-10 - E11.42) Plan Of Treatment Pending Test Test Name Order Date [id number] NAIL, 6 OR MORE 10/20/2024 Next Appt Details Provider Name:Reyna Espinoza tyrone, 02/10/2025 02:45:00 PM, [address] [place] [address], [phone], Insurance Providers Payer Name Payer Address Payer Phone Subscriber Number Group Number Insured Name Patient Relationship to Insured Coverage Start Date Coverage End Date [employer] [address] [place] [address] [phone] [id number] Sandeep Carrasquillo Self - patient is the insured 3 Medical (General) History Medical History History ICD Code Arthritis Back,Hip,and Knee pain CAD (Cholesterol) Cancer Cataracts covid-19 type I diabetes Glaucoma High Blood Pressure Numbness Psoriasis Reflux Stroke Psoriatic arthritis Skin cancer/melanoma Legioneers Disease Surgical History Surgery Date(Month/Year) Left colon removed 2015 Neoplasm removed
--- OUTSIDE RECORDS SUMMARY | 2024-11-17 10:33 | XMS_ITS ---
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 Role Phone Krishan Alvarado Primary Care Provider Reyna Godoy Unavailable [phone] Allergies No Known Allergies REASON FOR VISIT At Risk Footcare, Painful Nail(s) aggravated by shoes and causing difficulty standing/walking., ToeIrritation Medications Medication SIG (Take, Route, Frequency, Duration) Notes Start Date End Date Status Methotrexate 20mg Active Lisinopril 20 MG 1 tablet Orally Once a day Active Omeprazole 20 MG 1 capsule 1/2 to 1 h our before morning meal Orally Once a day Active Folic Acid 1 MG 1 tablet Orally Once a day Active Atorvastatin Calcium 80 MG 1 tablet Oral ly Once a day Active Tamsulosin HCl Activ e Lantus Active Tylenol 500mg Active Nancy Active Ventolin HFA Active HumaLOG Active Social History Tobacco Use: Social History [...] Polyneuropathy due to type 2 diabetes mellitus (845324206) Type 2 diabetes mellitus with diabetic polyneuropathy (E11.42) Active confirmed Vital Signs Height 5 FT 9INCH in 10/20/2024 Weight 198 lbs 10/20/2024 BMI 29.24 kg/m2 10/20/2024 Blood pressure systolic 130 mm Hg 10/20/19 25 Blood pressure diastolic 70 mm Hg 025 Procedures Procedure Date Ordered Date Performed Result Body Sit e 08665-EAIGGOG NAIL, 6 OR MORE 10/20/2024 N/A Encounters Encounter Location Date Provider Diagnosis [facility] [address] [address] 10/20/2024 Reyna Chavarria Other hammer toe(s) (acquired), [...] pdf (DIABETIC FOOT CARE INSTRUCTIONS. pdf) 10/20/2024 Tinea unguium (ICD-10 - B35.1) 10/20/2024 Other hammer toe(s) (acquired), left foot (ICD-10 - M20.42) 10/20/2024 Type 2 diabetes mellitus with diabetic polyneuropathy (ICD-10 - E11.42) Plan Of Treatment Treatment Notes Assessment Notes Other hammer toe(s) (acquired), right fo ot Patient Educated with: DIABETIC FOOT CARE INSTRUCTIONS.pdf (DIABETIC FOOT CARE INSTRUCTIONS.pdf) Pending Test Test Name Order Date [id number] NAIL, 6 OR MORE 10/20/2024 Next Appt Details Follow Up: 3 Months, Reason: Provider Name:Reyna hansen, 02/10/2025 02:45:00 PM, [address] [place] [address], [id number], Procedure Notes * Category Sub-Category Detail Notes Debride Nail 6-10 Nail debridement Due to the cl inical pathology outlined in the exam findings, performance of this nail treatment is medically necessary as its management by an unskilled/untrained nonprofessional would put this patients foot and overall health at risk. Therefore, debridement to affected nail(s), as described in exam ( TA, T1, T2, T3, T4, T5, T6, T7, T8, T9, ), was performed exclusively by the physician of record to reduce/remove overall nail length, girth, thickness, subungual debris, and necrotic tissue, by manual and/or electrical means through the use of a nail nipper and/or dremel-type perlite grinder, to a more viable healthy nail plate or bed tissue 6-10 nails in total. Silver nitrate was used for any petechial bleeding as necessary. Definitive antifungal treatment options, both pharmaceutical and surgical, have been reviewed and discussed with the patient. The patient solely prefers the use of intermittent/as needed professional debridement services for their nail condition and understands the need for additional periodic treatments to maintain effectiveness in symptomatic relief - 80612 Keratoma Treatment Parring or Cutting o f Benign Hyperkeratotic Lesion(s) (-56) 2-4 Lesions - Due to the at risk nature of the patients medical condition as documented in the exam findings, performance of this keratoderma treatment is medically necessary as its management by an unskilled/untrained nonprofessional would put this patients foot and overall health at risk. Therefore, the benign hyperkeratotic lesions, ( 4 ) in total, locations as stated and described in the exam (sub 1st MTH, B/L, plantar heels B/L), were pared, and/or cut utilizing a sterile 15 blade, tissue nippers, and/or power dremel instrumentation by the physician of record - 63985 Progress Notes * Sandeep CARRASQUILLO LDOB:[birth year] (64 yo M)Acc No.[id number]:10/20/2024 Progress Notes Patient:?Sandeep CARRASQUILLO Provider:?Reyna Chavarria DPM :1960???Age:64 Y???Sex:Male Rigoberto e:10/20/2024 Address:[address] [place] [address] Pcp:Krishan Alvarado Subjective: * Chief Complaints: * ???At Risk FootcarePainful N ail(s) aggravated by shoes and causing difficulty standing/walking.Toe Irritation * HPI: ???At Risk footcare:?Pt States Last PCP Visit:?Date?08/18/2024 ???Toe pain:?Location:?B/L feet.?Duration:?several years.?Course:?worse.?Aggravated by:?shoes, any pressure.?Treatments:?change in shoes.? * ROS:?General/Constitutional:?Nausea?denies.?Vomiting?denies.?Hunger Thirst?denies.?Loss appetite?denies.?Chills?denies.?Fatigue?admits.?Fever?denies.?Night Sweats?denies.?Unexplained weight loss?denies.?Unexplained weight gain?denies.?HEENTM:?Dentures?denies.?Dizziness?denies.?Glasses/contacts?admits.?Retinopathy?den ies.?Blurred/double vision?admits.?TMJ?denies.?Discharge/drainage?denies.?Implants?denies.?Sore throat?denies.?Dental implants?denies.?Hard of hearing ?denies.?Difficulty chewing/swallowing/speaking?denies.?Nose bleeds?denies.?Sore mouth?denies.?Respiratory:?On O xygen?denies.?Pneumonia/pleurisy?denies.?Bronchitis?denies.?Emphysema?denies.?Co ughing?denies.?Cough blood?denies.?Shortness of breath?admits.?Wheezing?denies.?Cardiovascular:?Pacemaker?denies.?MVP?denies.?WPW?denies.?CHF?denies.?Heart attack?denies.?Septal defect?denies.?Rapid beat?denies.?Chest pain ?denies.?Atrial Fib.?denies.?Murmur/Palpitations?denies.?Gastrointestinal:?Hemorrhoids?denies.?Stomach/Abdominal pain?denies.?Dark blood stool?denies.?Irritable bowel ?denies.?Constipation?denies.?Diarrhea?denies.?Hematology:?Swelling?denies.?Clots?denies.?Varicose Veins?denies.?Bruising?denies.?Bleeding problem?denies.?Genitourinary:?Blood urine?denies.?Frequent/Painfu/urination/bladder control?denies.?Kidney stones?denies.?Infection (UTI)?denies.?Nephropathy?denies.?sex trans dis (STD)?denies.?Prostate?admits.?Musculoskeletal:?Hammertoes?denies.?Bunions?denies.?Back Pain?denies.?Muscle Cramps/ Resting?admits.?Muscle cramps / walking?denies.?Generalized aches and pains?denies.?Weakness?denies.?Integ.:?Blunt?denies.?Scars?admits.?Corns/calluses?denies.?Ingrown nails?denies.?Painful nails?denies.?Open Sores?denies.?Rashes?denies.?Neurologic:?Difficulty sleeping?denies.?Brain disorder?denies.?Numbness?denies.?Balance t rouble?admits.?Confusion?admits.?Fainting/blackouts?denies.?Tingling?admits.?Telly mors?denies.? * Medical History:? 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 * Social History:?Tobacco Use:?Tobacco use other than smoking?Are you an other tobacco user??No ?Tobacco Control (Standard)?Tobacco use:?Nonsmoker ?Additional Findings: Tobacco non-user?Current nonsmoker ???Drugs/Alcohol:?Drugs?Have you used drugs other than those for medical reasons in the past 12 months??No ???Miscellaneous:?Caffeine: yes. ?Marital status: . ?Occupation: Disabled. ???Drug/Alcohol:?AUDIT-C (Standard)?Did you have a drink containing alcohol in the past year??No ?Points?0 ?Interpretation?Negative * Medications:?TakingTamsulosi n HCl Nancy Tylenol , Notes to Pharmacist: 500mgVentolin HFA Omeprazole 20 MG Capsule Delayed Release 1 capsule 1/2 to 1 hour before morning meal Orally Once a day Atorvastatin Calcium 80 MG Tablet 1 tablet Orally Once a day Folic Acid 1 MG Tablet 1 tablet Orally Once a day Methotrexate , Notes to Pharmacist: 20mgLisinopril 20 MG Tablet 1 tablet Orally Once a day HumaLOG Lantus Medication List reviewed and reconciled with the patientTaking Tamsulosin HCl Taking Nancy Taking Tylenol , Notes to Pharmacist: 500mgTaking Ventolin HFA Taking Omeprazole 20 MG Capsule Delayed Release 1 capsule 1/2 to 1 hour before morning meal Orally Once a day Taking Atorvastatin Calcium 80 MG Tablet 1 tablet Orally Once a day Taking Folic Acid 1 MG Tablet 1 tablet Orally Once a day Taking Methotrexate , Notes to Pharmacist: 20mgTaking Lisinopril 20 MG Tablet 1 tablet Orally Once a day Taking HumaLOG Taking Lantus Medication List reviewed and reconciled with the patient * Allergies:?N.K.D.A.yes[Aller gies Verified] Objective: * Vitals:?Ht:5 FT 9INCH, Wt:19 8, BMI:29.24, Shoe size:11, BP:130/70mm Hg, BS:142, Ht-cm: 175.26 cm, Wt-k.81 kg. * Examination: ???Ophthalmology Referral: ?DIABETES EYE EXAM?Nails: ?NAILS are:?Elongated, overgrown, dystrophic, lytic, greater than 3mm thick, discolored and friable with crumbly malodorous subungual debris, with dull to no pain on palpation due to neuropathy, TA, T1, T2, T3, T4, T5, T6, T7, T8, T9.?Dermatologic: ?SKIN FINDINGS:?Skin exam reveals normal texture, elasticity, and turgor. There are no masses. The interspaces are clear, B/L, Skin exam reveals Keratotic lesion(s) located at?sub 1st MTH B/L, plantar heels B/L.?Vascular: ?DP PULSES (B):?2/4, B/L.?PT PULSES (B):?1/4, B/L.?CAPILLARY FILL TIME:?immediate, all digits, B/L.?TROPHIC CONDITION-TEXTURE/ELASTICITY/TURGOR/HAIR GROWTH (B):?normal, B/L.?TEMPERTURE GRADIENT (C):?normal, warm to cool, proximal to distal, B/L, B/L.?PIGMENTATION:?normal, B/L.?EDEMA (C):?absent, B/L.?CLAUDICATION (C):?denies, B/L.?REST PAIN:?denies, B/L.?Neurological: ?SENSORY:?(DM/Neuro) Neurological exam demonstrates reduced sharp/dull pin prick discrimination reduced light touch sensation reduced vibration sensation reduced proprioception sensation in a stocking fashion 5.07 monofilament test performed at plantar aspects of 5 varied sites per foot shows sensation plantar aspects absent at Forefoot B/L.?General Examination: ?GENERAL APPEARANCE:?Reveals a pleasant, alert, well nourished, well- developed, well hydrated individual, who demonstrates proper attention to hygiene/body habitus, and is in no acute distress.?ORIENTED:?person, place, and time , person, place, and time.?FOOT EXAM:?Footwear Evaluation?Orthopedic: ?MUSCLE STRENGTH:?5/5 all groups in a symmetrical fashion, B/L.?DIGITAL DEFORMITIES:?Digital contracture, PIPJ, 2-5 B/L, incompl-reducible to push-up test, no over, nor underlapping,?there is?evidence of shoe producing skin irritation.?FOOTWEAR:?worn, non-supportive, shoe gear properties exacerbate patient's foot/toe deformity.? Assessment: * Assessment: 1.?Other hammer toe(s) (acqu ired), right foot - M20.41???Specify :Chronic problem, Worse (4),Rx Management (4)???2.?Other hammer toe(s) (acquired), left foot - M20.42???Specify :Chronic problem, Worse (4),Rx Management (4)???3.?Tinea unguium - B35.1 (Primary)???4.?Type 2 diabetes mellitus with diabetic polyneuropathy - E11.42??? Plan: * Treatment: 2.?Other hammer toe(s) (acqu ired), right foot? Notes: Patient Educated with: DIABETIC FOOT CARE INSTRUCTIONS.pdf (DIABETIC FOOT CARE INSTRUCTIONS.pdf)?? * Procedures:?Debride Nail 6-10:?Nail debridement?Due to the clinical pathology outlined in the exam findings, performance of this nail treatment is medically necessary as its management by an unskilled/untrained nonprofessional would put this patients foot and overall health at risk. Therefore, debridement to affected nail(s), as described in exam ( TA, T1, T2, T3, T4, T5, T6, T7, T8, T9, ), was performed exclusively by the physician of record to reduce/remove overall nail length, girth, thickness, subungual debris, and necrotic tissue, by manual and/or electrical means through the use of a nail nipper and/or dremel-type perlite grinder, to a more viable healthy nail plate or bed tissue 6- 10 nails in total. Silver nitrate was used for any petechial bleeding as necessary. Definitive antifungal treatment options, both pharmaceutical and surgical, have been reviewed and discussed with the patient. The patient solely prefers the use of intermittent/as needed professional debridement services for their nail condition and understands the need for additional periodic treatments to maintain effectiveness in symptomatic relief - [id number].?Keratoma Treatment:?Parring or Cutting of Benign Hyperkeratotic Lesion(s)?(-56) 2-4 Lesions - Due to the at risk nature of the patients medical condition as documented in the exam findings, performance of this keratoderma treatment is medically necessary as its management by an unskilled/untrained nonprofessional would put this patients foot and overall health at risk. Therefore, the benign hyperkeratotic lesions, ( 4 ) in total, locations as stated and described in the exam (sub 1st MTH, B/L, plantar heels B/L), were pared, and/or cut utilizing a sterile 15 blade, tissue nippers, and/or power dremel instrumentation by the physician of record - 91320.? * Procedure Codes:?37860 DEBRI DE NAIL, 6 OR MORE, Modifiers: XS 3044F HG A1C LEVEL LT 7.0% * Preventive Medicine:? ??Counseling:?Discussion:?-03: Office or other outpatient visit for the evaluation and management of a new patient, which required a medically appropriate history and/or examination and LOW level of DECISION MAKING for: 1 STABLE ACUTE UNCOMPLICATED PROBLEM, 2 OR MORE MINOR PROBLEMS, OR 1 STABLE CHRONIC PROBLEM, THAT POSE(S) A LOW RISK FOR MORBIDITY/MORTALITY. The visit on the day of the encounter encompassed interpreting the data and educating the patient as to the nature of their condition, treatment options available according to their individual PMH, meds, allergies, and overall health/living conditions, as well as any potential risks or complications that may occur from a failure to adhere to, and participate in, the recommended course of therapy. The discussion included a complete verbal, and/or written explanation of the examination results, any x-rays taken, the proposed diagnosis, and outline of the treatment plan. A schedule for future care needs was also explained. The patient verbalized an understanding of the instructions at this time and agreed to be an active participant in their treatment. If the patient should think of any questions or concerns after the visit, I have encouraged the patient to call the office.?Digital Surgery:?Digital surgery was discussed with the patient, We elected to try conservative treatment at the present time, due to the patients medical history and increased asssociated post-operative risks.?Digital Treatment:?HT- I explained to the patient the possible etiologies of Hammertoes, including genetics/foot type/shoegear/activity level/exercise routine and the risks/benefits of all the different treatment options for their pain including: No treatment at all, Rest, Ice, New/supportive/wider/deeper Shoegear, Digital Padding/Strapping/Taping/Bracing/Gel protective sleeves, Foot/Ankle AFO Bracing, Stretching exercises, Deep Tissue Massage, Arch support/shoe inserts with splay metatarsal padding, and Custom orthoses. I insisted that any digital devices be removed daily and not worn overnight for safety. The patient is to carefully examine the toes daily for any skin irritation while using any splinting or padding device. The advantages and disadvantages of each option were discussed and the patients questions re: shoegear, padding, custom vs prefabricated inserts, activity level, and consistency in home treatment regimens for optimal success were answered to their verbally confirmed satisfaction.?Shoe Gear Counseling:?Patient DEFERS recommended Extra Depth Orthopedic pressure-accommodative shoes against medical advice.? ??Screening/Special Tests:?Fall Risk?Screening:?No falls in the past year ?FALLS: Screening for Future Fall Risk?Have you had any falls with injury in the past year??No * Follow Up:?3 Months * Images: * Sign off status: Completed true * Provider:Anusha Chavarria DPM Date:?0 10/20/2024 Generated for Mirna knight/Steven/eTransmitting on:?11/17/2024 10:33 AM EST History and Physical Notes * HPI (History of Present Illness) Category Sub-Category Detail Notes Category Not es Toe pain Location: B/L feet Duration: several years Course: worse Aggravated by: shoes, any pressure Treatments: change in shoes At Risk footcare Pt States Last PCP Visit: Date: 4 Examination Category Sub-Category Detail Notes Category Not es Neurological SENSORY: (DM/Neuro) Neuro logical exam demonstrates reduced sharp/dull pin prick discrimination reduced light touch sensation reduced vibration sensation reduced proprioception sensation in a stocking fashion 5.07 monofilament test performed at plantar aspects of 5 varied sites per foot shows sensation plantar aspects absent at Forefoot B/L Dermatologic SKIN FINDINGS: Skin exam reveal s normal texture, elasticity, and turgor. There are no masses. The interspaces are clear, B/L, Skin exam reveals Keratotic lesion(s) located at sub 1st MTH B/L, plantar heels B/L Orthopedic FOOTWEAR: worn, non-suppor tive, shoe gear properties exacerbate patient's foot/toe deformity DIGITAL DEFORMITIES: Digital contracture , PIPJ, 2-5 B/L, incompl-reducible to push-up test, no over, nor underlapping, there is evidence of shoe producing skin irritation MUSCLE STRENGTH: 5/5 all groups in a symmetrical fashion, B/L General Examination GENERAL APPEARANCE: Reveals a pleasant, alert, well nourished, well-developed, well hydrated individual, who demonstrates proper attention to hygiene/body habitus, and is in no acute distress FOOT EXAM: Lower Extremity Neurological Exa m performed:: Yes Date 10/20/24 Visual exam of foot performed:: Yes Date: 10/20/2024 Sensory testing performed:: sensations d iminished Sensory and motor testing performed:: st rength normal Pedal pulse taking performed:: 1+ ORIENTED: person, place, and t nadira , person, place, and time Footwear Evaluation Footwear Evaluation performe d:: Yes Ophthalmology Referral DIABETES EYE EXAM Procedure Perform ed:: Yes ?Date of Exam Performed: 07/31/2024 Diabetic Retinopathy Screening:: Yes Findings of Diabetic Eye Exam:: no retin opathy Vascular DP PULSES (B): 2/4, B/L PT PULSES (B): 1/4, B/L CAPILLARY FILL TIME: immediate, all digi ts, B/L TEMPERTURE GRADIENT (C): normal, warm to cool, proximal to distal, B/L, B/L TROPHIC CONDITION-TEXTURE/ELASTICITY/TURGOR/HAIR GROWTH (B): normal, B/L EDEMA (C): absent, B/L CLAUDICATION (C): denies, B/L REST PAIN: denies, B/L PIGMENTATION: normal, B/L Nails NAILS are: Elongated, overg rown, dystrophic, lytic, greater than 3mm thick, discolored and friable with crumbly malodorous subungual debris, with dull to no pain on palpation due to neuropathy, TA, T1, T2, T3, T4, T5, T6, T7, T8, T9
--- OUTSIDE RECORDS SUMMARY | 2024-11-17 10:33 | XMS_ITS | Continuity of Care Document ---
Author Organization [facility] Address [address] [place] [address] Phone [phone] Social History Type Date Description Comments Sex Unknown Medical Devices Description No Information Available Encounters Description No Information Available Assessments Description No Information Available Plan of Treatment No Information Available Functional Status Description No Information Available Mental Status Description No Information Available Referrals Description No Information Available
--- NOTE | 2024-11-17 11:18 | AM.OFFVISNUR ---
Intake Visit Reasons: PVR Allergies No Known Allergies Allergy (Verified 10/21/24 09:42) Nursing Note Patient in the office today for a PVR check and urine collection for U/A and Cytology. Patient states he voided just prior to coming to appt. He brought urine specimen in sterile container. Pt attempted to void again, but unable. PVR was 220ml. Urinalysis performed in the office and shows 3+ leuks with everything else Negative. Urine sent for a culture and cytology. Dr. Sneed notified of PVR results via Miira. Advised patient stop the Flomax and start the Terazosin 10mg and return to office in 6-8 weeks for a Cystoscopy with Dr. Sneed. Educated patient on the plan of care. He wanted to try and void again. He was able to void this time and bladder scan amount was still elevated at 144ml. Appt scheduled for Cysto and patient verbalized understanding of medication change. Office Procedures Post Void Residual Post Residual Void Details: At the end of visit patient tried voiding again and was able to. Repeat PVR right after voiding was 144ml. Post Void Residual (PVR): 220 [id number] Void Residual by ultrasound Results AMB Urinalysis, Automated UA Leukoctes 500 Leona/uL Last Edit by Hyacinth Tellez RN on 11/17/24 11:17 UA Nitrite Negative Last Edit by Hyacinth Tellez RN on 11/17/24 11:17 UA Urobilinogen 3.5 mg/dL Last Edit by Hyacinth Tellez RN on 11/17/24 11:17 UA Protein 0.1 mg/dL Last Edit by Hyacinth Tellez RN on 11/17/24 11:17 UA pH 6 Last Edit by Hyacinth Tellez RN on 11/17/24 11:17 UA Blood 10 Joaquim/uL Last Edit by Hyacinth Tellez RN on 11/17/24 11:17 UA Specific [place] 1 Last Edit by Hyacinth Tellez RN on 11/17/24 11:17 UA Ketone Negative Last Edit by Hyacinth Tellez RN on 11/17/24 11:17 UA Bilirubin 0 mg/dL Last Edit by Hyacinth Tellez RN on 11/17/24 11:17 UA Glucose 0 mg/dL Last Edit by Hyacinth Tellez RN on 11/17/24 11:17 Assessment & Plan Assessment & Plan Orders: Orders AMB Post Void Residual by ultrasound Today R33.9 - Retention of urine, unspecified Urine Culture Today N32.89 - Other specified disorders of bladder, R33.9 - Retention of urine, unspecified AMB Urinalysis Automated Today Z13.9 - Encounter for screening, unspecified Medications: Discontinued tamsulosin (Flomax) Discontinued Reason: Doctor's Order 0.8 mg (2 x 0.4 mg) PO BEDTIME 90 days 180 caps 2RF Coding CPT Codes Post Residual Void - PVR CPT Code: 53234-Bjvh Void Residual by ultrasound ([id number])
== END 2024-11-17 11:27 | disposition home or self-care (01) ==
PROVIDERS: PCP Family Medicine; Visit Provider Nurse Practitioner Family
DX: Z13.9 Encounter for screening, unspecified (principal)

== ENCOUNTER 2024-11-17 10:05 | Outpatient (REF) | payer MEDICARE, MEDICAID, SELFPAY ==
--- OUTSIDE RECORDS SUMMARY | 2024-11-17 11:10 | XMS_ITS | Continuity of Care Document ---
Author Organization [facility] Address [address] [place] [address] Phone [phone] Social History Type Date Description Comments Sex Unknown Medical Devices Description No Information Available Encounters Description No Information Available Assessments Description No Information Available Plan of Treatment No Information Available Functional Status Description No Information Available Mental Status Description No Information Available Referrals Description No Information Available
[2024-11-17 17:45] LABS: Urine Cytology See Pathology rpt
== END 2024-11-17 10:06 | disposition home or self-care (01) ==
LOC: HO.LAB 10:05
PROVIDERS: PCP Family Medicine; Visit Provider Nurse Practitioner Family
DX: R33.9 Retention of urine, unspecified (principal); N32.89 Other specified disorders of bladder; N30.90 Cystitis, unspecified without hematuria
CPT/HCPCS: 51798; 81003; 87086; 88112

== ENCOUNTER 2025-01-07 10:52 | Outpatient (AMB) | payer MEDICARE, MEDICAID, SELFPAY ==
--- NOTE | 2025-01-07 11:07 | MHC.OFFVIS ---
Intake Visit Reasons: cysto Intake Note: Patient is present for Cystoscopy Urology Medication:TERAZOSIN,FINASTERIDE Antibiotic Allergy:NONE Blood Thinner:ASDPIRIN Lot:[id number] Exp:02/04/27 Retail Stock Clerk Required: No Allergies No Known Allergies Allergy (Verified 01/07/25 11:27) HPI Comments Details: Edward is a pleasant male. He is a patient of Dr. Alvarado at the [place]. He is seen for the following urologic conditions - lower urinary tract symptoms Here for cystoscopy Known to have bladder wall thickening on imaging Postvoid volumes previously 90 cc Cystoscopy with enlarged prostate We will continue terazosin was finasteride Lower urinary tract symptoms Baseline finasteride Here follow-up trial terazosin PSA - 10/23 1.4 Imaging - 10/23 bladder ultrasound with incomplete emptying prostate 25 cc PFSH Medical History Transient cerebral ischemia Skin cancer Tubular adenoma GERD (gastroesophageal reflux disease) Asthma Psoriatic arthritis Obesity, Class I, BMI 30.0-34.9 (see actual BMI) Legionnaires' disease Intraparenchymal hemorrhage of brain HTN (hypertension) Hyperlipidemia Glaucoma Diverticulosis Diabetes CVA (cerebral vascular accident) Surgical History Hx of melanoma excision History of partial colectomy Social History Are you a primary primary care pediatrician to a significant other at home: No Do you presently have visiting nurse or other home services: No Unable to assess alcohol history related to: Unknown Patient Tobacco Use Status: Never used Tobacco Advance Directives Date on File: 05/15/23 Review of Systems Const Denies chills and Denies fever(s) Card Reports no additional complaints and Denies syncope Resp Denies cough GI Denies abdominal pain and Denies heartburn Reports as per HPI and Denies change in libido Neuro Denies syncope Psych Denies change in libido Endo Denies change in libido Physical Exam Const General: cooperative, healthy appearing, comfortable and no acute distress Orientation/consciousness: patient oriented x3 HEENT Face and sinus: Yes normal facial exam Mouth: moist mucous membranes Neck Neck: Yes normal visual inspection, Yes full ROM and Yes trachea midline Chest Chest palpation & inspection: normal inspection of the chest Resp Effort & Inspection: normal respiratory effort, able to speak in complete sentences and no respiratory distress GI Inspection: Yes normal to inspection Back/Spine/Pelvis Cervical Spine: normal cervical lordosis Thoracic/Lumbar Spine: thoracic and lumbar spine normal to inspection Skin General skin exam: no rashes or lesions noted Neuro General: patient oriented x3, gait normal, tone normal and moves all extremities Extrem General: Yes normal to inspection and Yes capillary refill normal Office Procedures Cystoscopy Consent Discussed risk and benefit or proposed procedure with the patient. Information consent for procedure given to the patient. Discussed technical aspects, risks, benefits and alternatives in full. Addressed all of the patient's questions and concerns regarding the procedure. The patient demonstrated knowledge and understanding. They wish to proceed with this procedure. Preparation The patient was prepped in the usual manner. A manager operational was present and in the room. Genitalia was prepped with betadine solution in a sterile manner. Lidocaine Jelly 2% was placed into the urethra and 16Fr flexible Olympus cystoscope was inserted into the meatus after adequate lubrication. Procedure Cystoscopy performed using a disposable Urovue digital 16 Mal[place]ian cystoscope. Meatus circumcised Urethra anterior and posterior urethra normal Prostatic Urethra trilobar a pleasant Bladder examination with retroflexion of cystoscope Bladder Orifices normal shape and position Bladder Capacity Normal Trabeculations Grade 1 Cellule Formation None Diverticulum Formation None Mucosal Erythema None Bladder Tumor None [id number]-[id number] DISPOSABLE SCOPE URO-G FLEXIBLE SCOPE Procedure code (CPT) selection complete Office Meds lidocaine HCl 2 % mucosal jelly in applicator Performing Provider: Elijah Sneed MD Performing Location: [facility] Administered by: Fuentes Wayne LPN on 01/07/25 11:47 Dose Route Admin Location Dispensed Lot Number Expiration Date NDC Delinquency Prevention Social Worker 10 mL intra-urethral 10 mL nitrofurantoin monohydrate/macrocrystals 100 mg capsule Performing Provider: Elijah Sneed MD Performing Location: [facility] Administered by: Fuentes Wayne LPN on 01/07/25 11:47 Dose Route Admin Location Dispensed Lot Number Expiration Date NDC Delinquency Prevention Social Worker 100 mg PO 1 cap Assessment & Plan Assessment & Plan (1) Cystitis: Code(s): N30.90 - Cystitis, unspecified without hematuria Category: Medical (2) Bladder wall thickening: Code(s): N32.89 - Other specified disorders of bladder Category: Medical Plan Continue terazosin Continue finasteride Orders: Orders AMB Cystoscopy 01/07/25 N32.89 - Other specified disorders of bladder, N30.90 - Cystitis, unspecified without hematuria, R33.9 - Retention of urine, unspecified Medications: Changed From terazosin 10 mg PO BEDTIME 30 days 30 caps 1RF N40.1 - Benign prostatic hyperplasia with lower urinary tract symptoms, N13.8 - Other obstructive and reflux uropathy To terazosin 10 mg PO BEDTIME 90 caps 1RF 90 days N40.1 - Benign prostatic hyperplasia with lower urinary tract symptoms, N13.8 - Other obstructive and reflux uropathy Refilled finasteride 5 mg PO DAILY 90 tabs 1RF 90 days N40.1 - Benign prostatic hyperplasia with lower urinary tract symptoms, R33.9 - Retention of urine, unspecified Patient Instructions: This note is constructed using voice recognition software. While every effort has been made to ensure accuracy structural steel erector errors may have been included. Imaging studies, laboratory and physical exam results were discussed and reviewed in detail. No major barriers to patient understanding were identified. An opportunity to ask questions regarding the treatment plan was provided. All questions were answered. The patient expressed understanding and agreement with the above treatment plan. The patient is aware they should contact our office by phone for worsening of their current condition or the appearance of new urologic symptoms. Compliance is encouraged with any medications and followup testing that is ordered. It is a privilege to participate in the urologic care of your patient. If you have any questions or concerns regarding treatment for the above conditions, or other urologic issues, please do not hesitate to contact me. The office telephone contact is [phone]. Sincerely, Dr Elijah Sneed MD, [facility] - Urology Compassionate Specialist Care for the Genitourinary System Coding Level of Care Code Est Pt Level 3 (88589) Diagnoses Cystitis N30.90 Bladder wall thickening N32.89 CPT Codes Cystoscopy - CPT: 68497-[id number] ([id number])
--- OUTSIDE RECORDS SUMMARY | 2025-01-07 11:48 | XMS_ITS | Continuity of Care Document ---
Author Organization [facility] Address [address] [place] [address] Phone [phone] Social History Type Date Description Comments Sex Unknown Medical Devices Description No Information Available Encounters Description No Information Available Assessments Description No Information Available Plan of Treatment No Information Available Functional Status Description No Information Available Mental Status Description No Information Available Referrals Description No Information Available
== END 2025-01-07 12:31 | disposition home or self-care (01) ==
LOC: HO.HUSH 10:52
PROVIDERS: PCP Family Medicine; Visit Provider Urology
DX: N30.90 Cystitis, unspecified without hematuria (principal); N32.89 Other specified disorders of bladder
CPT/HCPCS: 52000; 99213

== ENCOUNTER → 2025-01-07 10:52 | Outpatient (BNVA) | payer MEDICARE, MEDICAID, SELFPAY | PROVIDERS: PCP Family Medicine; Visit Provider Urology | DX: N30.90 Cystitis, unspecified without hematuria (principal); N32.89 Other specified disorders of bladder | CPT/HCPCS: 52000; 99212 ==

== ENCOUNTER 2025-07-08 11:47 | Outpatient (AMB) | payer MEDICARE, MEDICAID, SELFPAY ==
--- NOTE | 2025-07-08 11:54 | A.OFFVIS_ITS ---
Intake Visit Reasons: 6m/PVR Intake Note: patient presents today for: 6mo follow up urology medications: finasteride, terazosin blood thinners: aspirin today's PVR: 0mls Cns Required: No Accompanied by: Self / Same As Patient Allergies No Known Allergies Allergy (Verified 07/08/25 12:03) HPI Comments Details: Edward is a pleasant male. He is a patient of Dr. Alvarado at the [place]. He is seen for the following urologic conditions - lower urinary tract symptoms Six-month follow-up PVR 0 Continue on combination therapy Follow-up 12 months with lab work We will check testosterone at that time since diabetic Lower urinary tract symptoms Baseline finasteride - and terazosin PSA - 10/23 1.4 Imaging - 10/23 bladder ultrasound with incomplete emptying prostate 25 cc Bladder ultrasound 90 g prostate Prior cystoscopy thickened bladder wall with trabeculation PFSH Medical History Transient cerebral ischemia Skin cancer Tubular adenoma GERD (gastroesophageal reflux disease) Asthma Psoriatic arthritis Obesity, Class I, BMI 30.0-34.9 (see actual BMI) Legionnaires' disease Intraparenchymal hemorrhage of brain HTN (hypertension) Hyperlipidemia Glaucoma Diverticulosis Diabetes CVA (cerebral vascular accident) Surgical History Hx of melanoma excision History of partial colectomy Social History Are you a primary hearing care practitioner to a significant other at home: No Do you presently have visiting nurse or other home services: No Unable to assess alcohol history related to: Unknown Patient Tobacco Use Status: Never used Tobacco Advance Directives Date on File: 05/15/23 Review of Systems Const Denies chills and Denies fever(s) Card Reports no additional complaints and Denies syncope Resp Denies cough GI Denies abdominal pain and Denies heartburn Reports as per HPI and Denies change in libido Neuro Denies syncope Psych Denies change in libido Endo Denies change in libido Physical Exam Const General: cooperative, healthy appearing, comfortable and no acute distress Orientation/consciousness: patient oriented x3 HEENT Face and sinus: Yes normal facial exam Mouth: moist mucous membranes Neck Neck: Yes normal visual inspection, Yes full ROM and Yes trachea midline Chest Chest palpation & inspection: normal inspection of the chest Resp Effort & Inspection: normal respiratory effort, able to speak in complete sentences and no respiratory distress GI Inspection: Yes normal to inspection Back/Spine/Pelvis Cervical Spine: normal cervical lordosis Thoracic/Lumbar Spine: thoracic and lumbar spine normal to inspection Skin General skin exam: no rashes or lesions noted Neuro General: patient oriented x3, gait normal, tone normal and moves all extremities Extrem General: Yes normal to inspection and Yes capillary refill normal Assessment & Plan Assessment & Plan (1) Bladder outlet obstruction: Code(s): N32.0 - Bladder-neck obstruction Category: Medical Plan Twelve month follow-up Orders: Orders Prostate Specific Antigen 11 Months N32.0 - Bladder-neck obstruction Testosterone, Total 11 Months N32.0 - Bladder-neck obstruction Medications: Refilled terazosin 10 mg PO BEDTIME 90 caps 3RF 90 days N13.8 - Other obstructive and reflux uropathy, N40.1 - Benign prostatic hyperplasia with lower urinary tract symptoms finasteride 5 mg PO DAILY 90 tabs 3RF 90 days N40.1 - Benign prostatic hyperplasia with lower urinary tract symptoms, R33.9 - Retention of urine, unspecified Patient Instructions: This note is constructed using voice recognition software. While every effort has been made to ensure accuracy accelerator systems director errors may have been included. Imaging studies, laboratory and physical exam results were discussed and reviewed in detail. No major barriers to patient understanding were identified. An opportunity to ask questions regarding the treatment plan was provided. All questions were answered. The patient expressed understanding and agreement with the above treatment plan. The patient is aware they should contact our office by phone for worsening of their current condition or the appearance of new urologic symptoms. Compliance is encouraged with any medications and followup testing that is ordered. It is a privilege to participate in the urologic care of your patient. If you have any questions or concerns regarding treatment for the above conditions, or other urologic issues, please do not hesitate to contact me. The office telephone contact is [phone]. Sincerely, Dr Elijah Sneed MD, [facility] - Urology Compassionate Specialist Care for the Genitourinary System Coding Level of Care Code Est Pt Level 3 (18298) Complex EM visit Add On G2211 Diagnoses Bladder outlet obstruction N32.0
--- OUTSIDE RECORDS SUMMARY | 2025-07-08 12:46 | XMS_ITS ---
Continuity of Care Document (CCD) Created on: July 08, 2025 Foreign Sandeep External Reference #: [id number] : [id number] Sex: Male Author Organization [facility] Address [address] [place] [address] Phone [phone] Social History Type Date Description Comments Sex Male Sex Unknown Medical Devices Description No Information Available Encounters Description No Information Available Assessments Description No Information Available Plan of Treatment No Information Available Functional Status Description No Information Available Mental Status Description No Information Available Referrals Description No Information Available
== END 2025-07-08 12:22 | disposition home or self-care (01) ==
LOC: HO.HUSH 11:47
PROVIDERS: PCP Family Medicine; Visit Provider Urology
DX: Z13.9 Encounter for screening, unspecified (principal); N32.0 Bladder-neck obstruction
CPT/HCPCS: 99213; G2211

== ENCOUNTER → 2025-07-08 11:47 | Outpatient (BNVA) | payer MEDICARE, MEDICAID, SELFPAY | PROVIDERS: PCP Family Medicine; Visit Provider Urology | DX: N32.0 Bladder-neck obstruction (principal); N40.1 Benign prostatic hyperplasia with lower urinary tract symptoms; R33.9 Retention of urine, unspecified; N13.8 Other obstructive and reflux uropathy | CPT/HCPCS: 51798; 81003; 99212 ==

== ENCOUNTER 2025-09-18 06:01 | Inpatient (IN) | payer MEDICARE, MEDICAID, SELFPAY ==
[2025-09-18] VITALS (13 sets, daily range): BP systolic 101–162; BP diastolic 49–66; PULSE 58–98; RESP 12–24; TEMP 36.8–38.8; O2SAT 88–97; BMI 27.1
--- NOTE | ~2025-09-18 | CT_ITS ---
EXAMINATION: CT ABDOMEN AND PELVIS WITHOUT CONTRAST CLINICAL INFORMATION: Enterococcus faecalis bacteremia. Assess for abdominal source. COMPARISON: None available. TECHNIQUE: Multidetector volumetric imaging was performed from the superior aspect of the liver through the pubic symphysis. Sagittal and coronal reformatted images were obtained on the technologist's workstation. This CT examination was performed using dose optimization techniques as appropriate, variously including the following: *Automated exposure control *Adjustment of mA and/or kV according to patient size (this includes techniques or standardized protocols for targeted exams where dose is matched to indication/reason for exam; i.e. extremities or head) *Use of iterative reconstruction technique FINDINGS: LUNG BASES: Airspace opacities which could represent atelectasis or consolidation in the posterior aspect of bilateral lower lungs. Small calcification in the left lower lung. LIVER, GALLBLADDER, AND BILIARY TREE: No focal hepatic lesion or biliary ductal dilatation is present. Punctate calcification of right lobe of the liver. The gallbladder is unremarkable with no evidence of radiopaque gallstones, gallbladder wall thickening, or obvious pericholecystic inflammatory changes. PANCREAS: No inflammatory changes seen. No pancreatic duct dilatation seen.. SPLEEN: Small calcification in the spleen. No acute findings. ADRENAL GLANDS: Unremarkable. KIDNEYS AND URETERS: Small peripheral calcification in the left kidney. No right renal calculi. Small calcification along the course of the right ureter. (3:75, 76.). There is no right hydroureteronephrosis.. This could represent a vascular calcification versus nonobstructing ureteral calculus. No left hydroureteronephrosis. No definite left ureteral calculus seen. Minimal bilateral perinephric stranding. BLADDER: Unremarkable. GASTROINTESTINAL TRACT: Stomach has luminal contents, limiting evaluation. No dilatation of the small bowel loops. Postsurgical changes in the right colon, with surgical miriam. Moderate-large volume stool in the large colon. There is prominent stool in the rectal region. No pericolonic inflammatory changes are seen. Mesentery: No ascites. No pneumoperitoneum. No significant mesenteric inflammatory changes. ABDOMINAL WALL: No significant hernia is appreciated. There is prominent stranding in the anterior subcutaneous tissues of the right abdomen. No fluid collection seen. LYMPH NODES: No pathologically enlarged lymph nodes are seen. VASCULAR: Normal caliber aorta. PELVIC VISCERA: No acute findings. OSSEOUS STRUCTURES: No destructive bony lesion. L5-S1 disc degeneration. CT/CT abdomen pelvis wo IV con IMPRESSION: 1. Moderate-large volume stool in the large colon. Prominent stool in the rectum. No pericolonic inflammatory changes. 2. Small calcifications along the course of the right ureter. This could represent vascular calcification versus a nonobstructing ureteral calculus. No hydroureteronephrosis. 3. Airspace opacities in the posterior aspect of bilateral lower lungs, could reflect atelectasis or consolidation.. 4. Prominent stranding in the anterior subcutaneous tissues of the right abdomen. No fluid collection seen. Clinically correlate. 5. Additional findings and details as above. Fleischner guidelines were followed. Electronically signed by: Jorge Arrington MD 09/20/2025 04:18 PM ROMÁN
--- NOTE | ~2025-09-18 | XR_ITS ---
CLINICAL HISTORY: cough, fever 2 view chest x-ray Comparison: 06/12/2024 Findings: The lungs are clear. Normal size heart. No acute fracture. IMPRESSION: 1. No acute findings. This document has been electronically signed by: Denis Hardin MD on 09/18/2025 07:24:46
--- NOTE | ~2025-09-18 | CT_ITS ---
CLINICAL HISTORY: Positive influenza, fever, hypoxia R O PE, pneumon CT angiography chest using contrast. 3-D postprocessing Comparison: CR - XR CHEST 2V - 09/18/25 06:52 EST Findings: There is good opacification of the main, right and left pulmonary arteries. No CT evidence of pulmonary embolism. Normal caliber thoracic aorta and great vessels. Heart size within normal limits. RV/LV ratio normal. Shotty mediastinal lymph nodes. No lymphadenopathy. Lung guzmán are normally expanded. Mild interstitial thickening. Basilar atelectasis. No pneumothorax, pleural effusions, pleural plaques or calcifications. No thyroid nodules demonstrated. No chest wall masses.No axillary adenopathy. No abnormalities are noted in the upper portions of the abdomen. Renal cortical cyst upper pole left kidney. No bony destructive processes demonstrated. Impression: 1. No CT evidence of pulmonary embolus. 2. Normal caliber thoracic aorta. 3. Mild interstitial thickening possible interstitial pneumonitis. Basilar atelectasis. No significant pleural effusion. This document has been electronically signed by: Myles Humphrey MD on 09/18/2025 10:02:39
--- NOTE | 2025-09-18 06:19 | ED.GENADULT ---
HPI - General Adult General Chief complaint: Fever Stated complaint: fever 104 & nausea x2 days, 88%RA, now 90% 2L nc Time Seen by Provider: 09/18/25 06:19 Related Data Home Medications ?Medication ?Instructions ?Recorded ?Confirmed acetaminophen 500 mg tablet 1,000 mg PO BID 04/16/23 06/13/24 albuterol sulfate 90 mcg/actuation 2 puff inhalation Q4H PRN wheezing 04/16/23 06/13/24 aerosol inhaler (Ventolin HFA) aspirin 81 mg tablet,delayed 81 mg PO DAILY 04/16/23 06/13/24 release atorvastatin 80 mg tablet 80 mg PO BEDTIME 04/16/23 06/13/24 cholecalciferol (vitamin D3) 125 125 mcg PO DAILY 04/16/23 06/13/24 mcg (5,000 unit) tablet (Vitamin D3) folic acid 1 mg tablet 1 mg PO SUMOTUTHFRSA@0900 04/16/23 06/13/24 insulin glargine 100 unit/mL (3 55 unit subcut BEDTIME 04/16/23 06/13/24 mL) subcutaneous pen (Lantus Solostar U-100 Insulin) krill [id number]-epa 150 1 cap PO DAILY 04/16/23 06/13/24 mg-450 mg capsule,delayed release methotrexate sodium 2.5 mg tablet 20 mg PO WE@0900 04/16/23 06/13/24 omeprazole 20 mg capsule,delayed 20 mg PO DAILY@0630 04/16/23 06/13/24 release insulin aspart U-100 100 unit/mL See Protocol subcut TIDAC 05/12/23 06/13/24 (3 mL) subcutaneous pen carboxymethylcellulose sodium 1 % 1 drp ophthalmic (eye) QID PRN Dry 06/13/24 06/13/24 eye liquid gel drops Eyes fexofenadine 180 mg tablet 180 mg PO DAILY 06/13/24 06/13/24 lisinopril 20 1 tab PO DAILY 06/13/24 06/13/24 mg-hydrochlorothiazide 12.5 mg tablet Previous Rx's ?Medication ?Instructions ?Recorded levofloxacin 500 mg tablet 500 mg PO DAILY 5 days #5 tabs 11/19/24 finasteride 5 mg tablet 5 mg PO DAILY 90 days #90 tabs 07/08/25 terazosin 10 mg capsule 10 mg PO BEDTIME 90 days #90 caps 07/08/25 Allergies Allergy/AdvReac Type Severity Reaction Status Date / Time No Known Allergies Allergy Verified 09/18/25 06:15 [facility] Past Medical History Medical History Transient cerebral ischemia Skin cancer Tubular adenoma GERD (gastroesophageal reflux disease) Asthma Psoriatic arthritis Obesity, Class I, BMI 30.0-34.9 (see actual BMI) Legionnaires' disease Intraparenchymal hemorrhage of brain HTN (hypertension) Hyperlipidemia Glaucoma Diverticulosis Diabetes CVA (cerebral vascular accident) Surgical History Hx of melanoma excision History of partial colectomy Social History Social History Are you a primary complex care nurse to a significant other at home: No Do you presently have visiting nurse or other home services: No Patient Tobacco Use Status: Never used Tobacco Advance Directives Date on File: 05/15/23 Physical Exam ED Vital Signs: Vital Signs - 24 hr 09/18/25 06:13 Temperature 99.3 F Pulse Rate 98 Respiratory Rate 18 Blood Pressure 128/49 L Pulse Oximetry 92 Oxygen Delivery Method Room Air BMI result Body Mass Index 27.1 Discharge Plan Discharge Prescriptions: No Action levofloxacin 500 mg tablet 500 mg PO DAILY 5 Days Qty: 5 0RF lisinopril-hydrochlorothiazide 20-12.5 mg tablet 1 tab PO DAILY fexofenadine [Nancy] 180 mg Tablet 180 mg PO DAILY carboxymethylcellulose sodium [Refresh] 1 % Drops, Liquid Gel 1 drp OPHTHALMIC (EYE) QID PRN (Reason: Dry Eyes) atorvastatin 80 mg tablet 80 mg PO BEDTIME aspirin 81 mg Tablet,Delayed Release (Dr/Ec) 81 mg PO DAILY methotrexate sodium 2.5 mg tablet 20 mg PO WE@0900 Rx Instructions: every friday omeprazole 20 mg capsule,delayed release(DR/EC) 20 mg PO DAILY@0630 folic acid 1 mg tablet 1 mg PO SUMOTUTHFRSA@0900 albuterol sulfate [Ventolin HFA] 90 mcg/actuation HFA aerosol inhaler 2 puff inhalation Q4H PRN (Reason: wheezing) insulin glargine [Lantus Solostar U-100 Insulin] 100 unit/mL (3 mL) insulin pen 55 unit subcut BEDTIME cholecalciferol (vitamin D3) [Vitamin D3] 125 mcg (5,000 unit) Tablet 125 mcg PO DAILY krill [id number]-epa 150-450 mg Capsule,Delayed Release(Dr/Ec) 1 cap PO DAILY acetaminophen 500 mg Tablet 1,000 mg PO BID insulin aspart U-100 100 unit/mL (3 mL) insulin pen See Protocol subcut TIDAC Protocol: Insulin Correction Scale Less than or equal to 110 ---- Give (units): 0 111 to 150 Give (units): 0 151 to 200 Give (units): 2 201 to 250 Give (units): 4 251 to 300 Give (units): 6 301 to 350 Give (units): 8 Greater than 350 Give (units): 10 Call MD if Blood Glucose > : 350 terazosin 10 mg capsule 10 mg PO BEDTIME 90 Days Qty: 90 3RF finasteride 5 mg tablet 5 mg PO DAILY 90 Days Qty: 90 3RF Print Language: Danish
--- OUTSIDE RECORDS SUMMARY | 2025-09-18 06:32 | XMS_ITS | Clinical Summary ---
Author Organization [facility] Address [address] [place] [phone] Phone Care Team Providers Care Efficiency Expert Name Role Phone Bridgett Sarkar MD Primary Care Provider [phone] Allergies No known active allergies Medications atorvastatin (LIPITOR) 80 MG tablet Take 80 mg by mouth daily. 3 Active aspirin 81 MG EC tablet Take 81 mg by mouth daily. 3 Active omeprazole (PRILOSEC) 20 MG capsule Take 20 mg by mouth daily. 3 Active albuterol (PROVENTIL HFA) 90 mcg/actuation inhaler Inhale 2 puffs into the lungs every 4 (four) hours as needed for wheezing. 3 Active acetaminophen (TYLENOL) 500 MG tablet Take 1,000 mg by mouth daily. 3 Active insulin aspart U-100 (NOVOLOG) 100 unit/mL Crtg Inject under the skin 3 (three) times a day with meals. 151-200 2u 201-250 4u 251-300 6u 301-350 8 u greter than 350 10 u 3 Active lisinopril-hydr oCHLOROthiazide (ZESTORETIC) 20-12.5 mg per tablet Take 1 tablet by mouth daily. 3 Active LANTUS SOLOSTAR U-100 INSULIN 100 unit/mL (3 mL) InPn injection pen Inject under the skin. 3 Active fluorouraciL (EFUDEX) 5 % cream Apply topically. 4 Active budesonide (PULMICORT FLEXHALER) 180 mcg/actuation inhaler Inhale 1 puff into the lungs 2 (two) times a day. 4 Active HUMALOG KWIKPEN INSULIN 100 unit/mL kwikpen E10.9 USE ACCORDING TO SLIDING SCALE MAX DOSE 90 UNITS DAILY. 90 DAYS SUPPLIES. Active ADVAIR HFA 45-21 mcg/actuation inhaler 90 mcg/treatment of fluticasone. 5 Active finasteride (PROSCAR) 5 mg tablet Take 5 mg by mouth daily. Active terazosin (HYTRIN) 10 MG capsule Take 10 mg by mouth nightly at bedtime. Active methotrexate 2.5 MG Oral tabletIndicatio ns:Psoriatic arthritis Take 8 tablets (20 mg total) by mouth once a week. on Wednesdays 104 tablet 1 5 Active folic acid (FOLVITE) 1 MG tabletIndicatio ns:Psoriatic arthritis Take 1 tablet (1 mg total) by mouth daily. do not take on 90 tablet 2 5 Active Active Problems Problem Noted Date Diagnosed Date Psoriatic arthritis 06/12/2023 Assessment & Plan (05/10/2024 10:35 AM EDT): Psoriatic arthritis well-controlled on methotrexate 8 tablets weekly and daily folic acid. He has no synovitis or swelling. Sent him for some labs today. Assessment & Plan (12/29/2023 1:17 PM EDT): Psoriatic arthritis very well-controlled on methotrexate 8 tablets weekly and daily folic acid. He has minimal psoriasis and no joint swelling or pain. Continue with same dose of methotrexate. Sent him for some labs today. Assessment & Plan (06/12/2023 10:07 AM EDT): Arthritis currently stable on methotrexate 8 tablets weekly and a daily folic acid. He has minimal psoriasis and no active synovitis. He has overall increase in stiffness exacerbated by his recent stroke 6 weeks ago. Sent him for some baseline labs today and sent in refills for methotrexate and folic acid. He needs confirmation of his multiple comorbidities, and the inability to return to work. I have asked him to get this letter from his primary provider Dr. Sim. Primary osteoarthritis involving multiple joints 06/12/2023 Assessment & Plan (05/10/2024 10:35 AM EDT): Osteoarthritis in multiple joints most bothersome in the hips and knees. He can continue with Tylenol 650 mg as needed. Assessment & Plan (12/29/2023 1:17 PM EDT): Osteoarthritis in multiple joints currently stable. He takes Tylenol arthritis twice a day. Assessment & Plan (06/12/2023 10:06 AM EDT): He has degenerative arthritis in multiple areas with no acute swelling. He can safely take Tylenol 500 mg twice a day as needed. Family History Medical History Relation Comments Heart disease Father Cancer Mother Hypertension Mother Diabetes Sibling Lung cancer Sister Relation Status Comments Father Mother Sibling Sister Alive Social History Tobacco Use Types Packs/Day Years Used Date Smoking Tobacco: Never Smokeless Tobacco: Never Tobacco Cessation:Counseling Given: Not Answered Alcohol Use Standard Drinks/Week Comments Not Currently 0 (1 standard drink = 0.6 oz pur e alcohol) Home Health Assessment: Transportation Answer Date Recorded Lack of Transportation (Medical) No 07/03/2023 Lack of Transportation (Non-Medical) No 07/03/2023 Patient Unable or Declines to Respond No 07/03/2023 Education Answer Date Recorded Are you interested in more education? Not on delia e 01/24/2023 Are you concerned about learning? Not on file 01/24/2023 No 01/24/2023 No 01/24/2023 Digital Access Answer Date Recorded No 02/22/2023 No 02/22/2023 Reliable internet access at home? Not on file 02/22/2023 Device with a working camera? Not on file Sex and Gender Information Value Date Recorded Sex Assigned at Not on file Legal Sex Male 7:35 AM EDT Gender Identity Not on file Sexual Orientation Not on file Last Filed Vital Signs Vital Sign Reading Time Taken Comments Blood Pressure 104/58 03/30/2025 10:26 AM EDT Pulse 77 03/30/2025 10:26 AM EDT Temperature 36.8 C (98.3 F) 06/26/2023 10:48 AM EDT Respiratory Rate 16 06/26/2023 10:48 AM EDT Oxygen Saturation 97% 03/30/2025 10:26 AM EDT Inhaled Oxygen Concentration - - Weight 86.2 kg (190 lb) 03/30/2025 10:26 AM EDT per pt Height 175.3 cm (5' 9 ) 05/10/2024 8:05 AM EDT Body Mass Index 28.06 05/10/2024 8:05 AM EDT Plan of Treatment Upcoming Encounters Date Type Department Care Team (Late st Contact Info) Description 10/04/2025 8:00 AM EST Office Visit [facility] [address] [place] [address] Zoya Ho DO [address] [facility], [address] [place] [address] [email or web address] Health Maintenance Due Date Last Done Comments LIPID PANEL 1960 COVID-19 VACCINE (#1) 01/02/1965 DEPRESSION SCREENING 1972 HEPATITIS C SCREENING 01/02/1978 HIV ONE-TIME SCREENING (18-65 YEARS) 01/02/1978 PNEUMOCOCCAL VACCINES (50+ years) (1 of 2 - PCV) 01/02/1979 ZOSTER VACCINES (1 of 2) 01/02/1979 COLOGUARD 01/02/2005 COLONOSCOPY 01/02/2005 COLORECTAL CANCER SCREENING 01/02/2005 FIT TEST 01/02/2005 FOBT 01/02/2005 SIGMOIDOSCOPY 01/02/2005 VIRTUAL COLONOSCOPY 01/02/2005 RSV VACCINE (1 - Risk 50-74 years 1-dose series) 01/02/2010 SCREENING FOR DIABETES 01/10/2023 01/11/2020 INFLUENZA VACCINE (#1) 2025 08/06/2023 CREATININE LEVEL 03/30/2026 03/30/2025, 09/2023, 06/12/2023, Additional history exists POTASSIUM LEVEL 03/30/2026 03/30/2025, 04/0 09/2023, 06/12/2023, Additional history exists Adult Td,Tdap Booster 10/10/2032 10/10/2022 SMOKING STATUS SCREENING (Once After 26 Yrs) Completed 03/30/2025 HEPATITIS A VACCINES Aged Out No long er eligible based on patient's age to complete this topic HIB VACCINES Aged Out No longer eligi ble based on patient's age to complete this topic MENINGOCOCCAL VACCINES (ACWY) Aged Out No longer eligible based on patient's age to complete this topic MENINGOCOCCAL VACCINES (B) Aged Out N o longer eligible based on patient's age to complete this topic Medical Devices Not on file Procedures Procedure Name Priority Date/Time Associated Diagnosis Comments COMPREHENSIVE METABOLIC PANEL (CMP) Routine 03/30/2025 10:56 AM EDT Psoriatic arthritis from Last 3 Months or Most Recently Relevant to Health Maintenance Results * (ABNORMAL) Comprehensive metabolic panel (03/30/2025 10:56 AM EDT) SODIUM 137 133 - 146 mmol/L [facility] POTASSIUM 3.7 3.3 - 5.1 mmol/L [facility] CHLORIDE 101 96 - 108 mmol/L [facility] CO2 28 21 - 35 mmol/L [facility] BUN 15 6 - 19 mg/dL [facility] CREATININE 1.00 0.5 - 1.5 mg/dL [facility] GLUCOSE 191(H) 70 - 99 mg/dL [facility] ALBUMIN 4.2 3.9 - 4.8 g/dL [facility] TOTAL PROTEIN 6.6 6.5 - 8.0 g/dL [facility] CALCIUM 9.6 8.4 - 10.3 mg/dL [facility] ALKALINE PHOSPHATASE 56 39 - 117 U/L [facility] TOTAL BILIRUBIN 0.4 0.0 - 1.2 mg/dL [facility] AST 27 0 - 37 U/L [facility] ALT 29 0 - 40 U/L [facility] GLOBULIN 2.4 1 - 4.8 g/dL [facility] EGFR 84 >59 mL/min/1.7 3m2 [facility] Comment:Estimated glomerular filtration rate calculated using the CKD-EPI refit equation. ANION GAP 12 10 - 20 mmol/L [facility] Blood 03/30/2025 10:5 6 AM EDT 03/30/2025 11:05 AM EDT Bimal العلي MD LAB BLOOD BKR ORDERABLES Final Result [address] [id number] from Last 3 Months or Most Recently Relevant to Health Maintenance Insurance [place] MEDICARE PART A & [place] B Care Teams Efficiency Expert Relationship Specialty Start Date End Date Bridgett Sarkar MD [address] [place] [address] PCP - General Internal Medicine 03/30/25 Additional Source Comments The information contained in this document represents components of the legal health record. It is not the complete legal health record.[facility]
--- OUTSIDE RECORDS SUMMARY | 2025-09-18 06:32 | XMS_ITS ---
Continuity of Care Document (CCD) Created on: September 18, 2025 Foreign Sandeep External Reference #: [id number] : [id number] Sex: Male Author Organization [facility] Address [address] [place] [address] Phone [phone] Social History Type Date Description Comments Sex Male Sex Unknown Medical Devices Description No Information Available Encounters Description No Information Available Assessments Description No Information Available Plan of Treatment No Information Available Functional Status Description No Information Available Mental Status Description No Information Available Referrals Description No Information Available
--- NOTE | 2025-09-18 06:33 | ED_ITS ---
HPI - Fever General Chief Complaint: Fever Stated Complaint: fever 104 & nausea x2 days, 88%RA, now 90% 2L nc Time Seen by Provider: 09/18/25 06:19 Source: patient Mode of arrival: EMS Limitations: no limitations History of Present Illness ED Provider: Dr. Dieudonne Rodriguez HPI Narrative: 65-year-old male with a history of GERD, asthma, Legionella, hypertension, hyperlipidemia, diabetes, stroke, who presents emergency department for evaluation of fever, nausea, malaise, dry cough x3 days. Patient was found to have an O2 saturation of 88% on room air by EMS. On 2 L of oxygen via nasal cannula patient's O2 saturation improved to 94%. Patient states that he is feeling very weak. He is complaining of nausea and feeling dehydrated. He states he has had a cough for several days which is nonproductive. He denied chest pain, shortness of breath, dyspnea on exertion, myalgias arthralgias. Related Data Home Medications ?Medication ?Instructions ?Recorded ?Confirmed acetaminophen 500 mg tablet 1,000 mg PO BID 04/16/23 0 06/13/24 albuterol sulfate 90 mcg/actuation 2 puff inhalation Q 4H PRN wheezing 04/16/23 06/13/24 aerosol inhaler (Ventolin HFA) aspirin 81 mg tablet,delayed 81 mg PO DAILY 04/16/23 0 06/13/24 release atorvastatin 80 mg tablet 80 mg PO BEDTIME 04/16/23 cholecalciferol (vitamin D3) 125 125 mcg PO DAILY 03/2906/13/24 mcg (5,000 unit) tablet (Vitamin D3) folic acid 1 mg tablet 1 mg PO SUMOTUTHFRSA@0900 06/13/24 insulin glargine 100 unit/mL (3 55 unit subcut BEDTIME 04/16/23 06/13/24 mL) subcutaneous pen (Lantus Solostar U-100 Insulin) krill [id number] 150 1 cap PO DAILY 04/16/23 06/13/24 mg-450 mg capsule,delayed release methotrexate sodium 2.5 mg tablet 20 mg PO WE@0900 06/13/24 omeprazole 20 mg capsule,delayed 20 mg PO DAILY@0630 0 04/16/23 06/13/24 release insulin aspart U-100 100 unit/mL See Protocol subcut T IDAC 05/12/23 06/13/24 (3 mL) subcutaneous pen carboxymethylcellulose sodium 1 % 1 drp ophthalmic (ey e) QID PRN Dry 06/13/24 06/13/24 eye liquid gel drops Eyes fexofenadine 180 mg tablet 180 mg PO DAILY 06/13/24 lisinopril 20 1 tab PO DAILY 06/13/2405/30 mg-hydrochlorothiazide 12.5 mg tablet Previous Rx's ?Medication ?Instructions ?Recorded levofloxacin 500 mg tablet 500 mg PO DAILY 5 days #5 t abs 11/19/24 finasteride 5 mg tablet 5 mg PO DAILY 90 days #90 ta bs 07/08/25 terazosin 10 mg capsule 10 mg PO BEDTIME 90 days #90 caps 07/08/25 Allergies Allergy/AdvReac Type Severity Reaction Status Date / Time No Known Allergies Allergy Verified 09/18/25 06:15 Review of Systems 2 Review of Systems: Yes all other systems are reviewed and are negative [facility] Past Medical History [facility] Narrative: Social history: He denies tobacco, alcohol and drug use. He lives with his daughter and grandchildren. He states that no one else is ill at home. Medical History Transient cerebral ischemia Skin cancer Tubular adenoma GERD (gastroesophageal reflux disease) Asthma Psoriatic arthritis Obesity, Class I, BMI 30.0-34.9 (see actual BMI) Legionnaires' disease Intraparenchymal hemorrhage of brain HTN (hypertension) Hyperlipidemia Glaucoma Diverticulosis Diabetes CVA (cerebral vascular accident) Surgical History Hx of melanoma excision History of partial colectomy Social History Social History Are you a primary animal care supervisor to a significant other at home: No Do you presently have visiting nurse or other home services: No Patient Tobacco Use Status: Never used Tobacco Advance Directives: Yes Advance Directives on File: Yes Advance Directives Date on File: 05/15/23 Physical Exam 2 Vital Signs: Vital Signs: Last Vital Signs Temp 98.2 F 09/18/25 10:40 Pulse 63 09/18/25 10:40 Resp 20 09/18/25 10:40 BP 128/51 L 09/18/25 10:40 Pulse Ox 95 09/18/25 10:40 O2 Del Method Nasal Cannula 09/18/25 10:40 O2 Flow Rate 2 09/18/25 10:40 BMI result Body Mass Index 27.1 Vital signs revealed a fever of 101.8 degrees F rectally, O2 saturation was 90% on room air improved to 96% on 2 L Exam: General: Awake, alert in no distress Head: Normocephalic, atraumatic EENT: PERRL, sclera and conjunctiva are normal, mouth with no erythema or exudates Neck: Supple, no adenopathy Lung: breath sounds symmetric, no wheezing, no rales and no rhonchi Chest: symmetric movement, nontender Heart: regular rate and rhythm, normal S1, S2 no murmurs or rubs Abdomen: soft, non-tender, nondistended, normal bowel sounds Back: no vertebral tenderness, no CVAT Extremities: no deformities, moves all extremities symmetrically, no edema Neuro: Awake, alert, oriented, speech is slow and comprehensible, cranial nerves 2-12 intact, moves all extremities symmetrically Psych: Pleasant, cooperative Medications Administered Discontinued Medications Generic Name Dose Route Start Last Admin Trade Name Jaime PRN Reason Stop Dose Admin Acetaminophen 975 mg 09/18/25 07:13 09/18/25 07:27 Acetaminophen 325 Mg Tablet PO 09/18/25 07:14 975 mg ONCE ONE Administration Piperacillin Sod/Tazobactam 100 mls @ 200 mls/hr 09/18/25 06:41 09/18/25 07:36 Sod 4.5 gm/ Sodium Chloride IV 09/18/25 07:10 Infused ONCE ONE Infusion Azithromycin 500 mg/ Sodium 250 mls @ 125 mls/hr 09/18/25 06:41 09/18/25 08:31 Chloride IV 09/18/25 08:40 Infused ONCE ONE Infusion Sodium Chloride 1,000 mls @ 999 mls/hr 09/18/25 07:59 09/18/25 08:56 Ns IV 09/18/25 08:59 Infused .Q1H1M STA Infusion Ibuprofen 400 mg 09/18/25 08:28 09/18/25 08:56 Ibuprofen 400 Mg Tablet PO 09/18/25 08:29 Not Given ONCE STA Iohexol 100 ml 09/18/25 09:21 09/18/25 09:21 Iohexol 350 Mg/Ml 100 Ml Infus..Btl IV 09/18/25 09:22 65 ml ONCE ONE Administration Oseltamivir Phosphate 75 mg 09/18/25 08:12 09/18/25 08:54 Oseltamivir Phosphate 75 Mg Capsule PO 09/18/25 08:13 75 mg ONCE ONE Administration Medical Decision Making Medical Decision Making MDM Narrative: 65-year-old male with a history of GERD, asthma, Legionella, hypertension, hyperlipidemia, diabetes, stroke, who presents emergency department for evaluation of fever, nausea, malaise, dry cough x3 days. Patient was found to have an O2 saturation of 88% on room air by EMS. On 2 L of oxygen via nasal cannula patient's O2 saturation improved to 94%. Vital signs revealed an elevated temperature of a 101.8 degrees F rectally otherwise unremarkable, otherwise exam was unremarkable. 06:41 Differential diagnosis: ?Includes but is not limited to COVID-19, influenza, RSV, viral syndrome, pneumonia, urinary tract infection, Course: 06:41 I ordered laboratory evaluation, chest x-ray, normal saline IV x1 L. Given his fever and respiratory symptoms the patient was treated with Zosyn 4.5 g IV. He was also given Tylenol 975 mg orally. 07:56 My independent interpretation patient's laboratory evaluation is as follows: CBC was normal. BUN elevated 23 with a normal creatinine. Glucose elevated 225. Lactic acid was normal 0.9. COVID-19, influenza, RSV tests are pending. 08:12 Patient's COVID 19 and influenza tests were negative. The patient's influenza test was positive for influenza a-this explains the patient's symptoms. Patient was ordered to get Tamiflu 75 mg orally. The patient was taken off oxygen and his O2 saturation dropped below 86% and he was placed back on 2 L of oxygen via nasal cannula. The patient remains febrile and he was given Motrin 400 mg orally. Patient's ex- states that the patient is mainly in bed but can get up to go to the bathroom and to eat meal. She states that his ability to walk has been deteriorating over months. Given his immobility, fever and cough, I will obtain a CT pulmonary angiogram PE protocol to rule out pulmonary embolism and pneumonia. 11:07 Patient states that he is feeling better. Despite being on 2 L of oxygen he has had several episodes where his O2 sat is dropped down to 88%. CT pulmonary angiogram PE protocol revealed no pulmonary emboli which is reassuring. Patient does have evidence for interstitial pneumonitis most likely caused by viral infection/ influenza A. Given his hypoxia and weakness I do not think that he can be discharged home, therefore I will discuss admission with the covering hospitalist 12:05 hours: I discussed the patient's presentation over tiger text with physician clinical trial assistant Nic Martel and the patient will be admitted to the hospitalist service for further management. Differential Diagnosis Differential Diagnoses: The differential diagnosis associated with the presentation includes (See above) Admission/Observation Consideration of admission/observation: Escalation of care including admission/observation considered (Yet) Lab Data MDM Lab Attestation statement: I reviewed the patient's lab results. 09/18/25 06:36 09/18/25 06:36 Labs: Lab Results 09/18/25 09/18/25 Range/Units 06:36 06:37 WBC 5.3 (4.8-10.8) X10*3/uL RBC 4.25 L (4.60-5.80) X10*6/uL Hgb 12.9 L (14.0-18.0) g/dl Hct 39.8 L (42.0-52.0) % MCV 93.6 (80.0-98.0) fL MCH 30.4 (27.0-33.0) pg MCHC 32.4 (31.0-36.0) g/dl RDW 14.1 (11.0-16.0) % Plt Count 172 (160-400) X10*3/uL MPV 11.9 (9.4-12.4) fL Immature Gran % (Auto) 0.2 (0.0-0.4) % Neut % (Auto) 79.6 H (45-73) % Lymph % (Auto) 5.2 L (20-40) % [place] % (Auto) 12.0 H (2-11) % Eos % (Auto) 2.1 (0-4) % Baso % (Auto) 0.9 (0-2) % Lymph # (Auto) 0.3 L (1.2-4.9) X10*3/uL [place] # (Auto) 0.6 (0.1-1.2) X10*3/uL Eos # (Auto) 0.1 (0.0-0.4) X10*3/uL Baso # (Auto) 0.1 (0.0-0.2) X10*3/uL Abs Immat Gran (auto) 0.01 (0.00-0.03) X10*3/uL Absolute Neuts (auto) 4.3 (2.0-8.3) x10*3/uL Absolute Nucleated RBC 0.000 (0.0-0.012) X10*3/uL Nucleated RBC % (auto) 0.0 (0.0-0.2) /100WBC Sodium 139 (135-145) mmol/L Potassium 4.0 (3.3-5.1) mmol/L Chloride 101 (96-108) mmol/L Carbon Dioxide 29 (22-29) mmol/L Anion Gap 13 (12-20) BUN 23 H (9-16) mg/dL Creatinine 1.22 (0.5-1.4) mg/dL Estim Creat Clear Calc 60.3 Estimated GFR 60 Random Glucose 225 H (60-115) mg/dL Lactic Acid 0.9 (0.5-2.0) mmol/L Calcium 9.7 (8.4-10.2) mg/dL Total Bilirubin 0.6 (0.0-1.0) mg/dL AST 29 (5-37) U/L ALT 28 (0-40) U/L Alkaline Phosphatase 56 (39-117) U/L Total Protein 6.4 L (6.5-8.0) g/dL Albumin 4.2 (3.5-5.0) g/dL Influenza Type A (PCR) POSITIVE A (Negative) Influenza Type B (PCR) NEGATIVE (Negative) RSV RNA Qual (PCR) NEGATIVE (Negative) SARS-CoV-2 RNA (RT-PCR) NEGATIVE (Negative) Independent Interpretation I performed an independent interpretation of an: Plain X-Ray Interpretation: My interpretation of the patient's two view chest x-ray is as follows: No obvious pulmonary consolidation noted by me, patient may have a subtle posterior infiltrate Radiology Impression Discussion of test interpretation with radiology: I discussed test interpretation with the radiologist Radiologist Impression: 2 view chest x-ray Comparison: 06/12/2024 Findings: The lungs are clear. Normal size heart. No acute fracture. IMPRESSION: 1. No acute findings. This document has been electronically signed by: Denis Hardin MD on 09/18/2025 07:24:46 CT angiography chest using contrast. 3-D postprocessing Comparison: CR - XR CHEST 2V - 09/18/25 06:52 EST Findings: There is good opacification of the main, right and left pulmonary arteries. No CT evidence of pulmonary embolism. Normal caliber thoracic aorta and great vessels. Heart size within normal limits. RV/LV ratio normal. Shotty mediastinal lymph nodes. No lymphadenopathy. Lung guzmán are normally expanded. Mild interstitial thickening. Basilar atelectasis. No pneumothorax, pleural effusions, pleural plaques or calcifications. No thyroid nodules demonstrated. No chest wall masses.No axillary adenopathy. No abnormalities are noted in the upper portions of the abdomen. Renal cortical cyst upper pole left kidney. No bony destructive processes demonstrated. Impression: 1. No CT evidence of pulmonary embolus. 2. Normal caliber thoracic aorta. 3. Mild interstitial thickening possible interstitial pneumonitis. Basilar atelectasis. No significant pleural effusion. This document has been electronically signed by: Myles Humphrey MD on 09/18/2025 10:02:39 Independent Historian Clinical information obtained from an independent historian. History obtained from or confirmed by: EMS External Record Review External record reviewed: Inpatient record Chronic Conditions Patient?s care impacted by: Diabetes and Hypertension Critical Care Time Critical Care Time Critical Care Time: Yes Total Critical Care Time: 35 Attestation: Critical Care: The patient was critically ill with a high probability of imminent or life threatening deterioration. I spent greater than 30 minutes of discontinuous time evaluating the patient,delivering critical care at the bedside, discussing and evaluating pertinent data with consultants. Critical care time does not include time spent performing separately billable procedures or teaching. Total time spent performing critical care was 35 minutes. Discharge Plan Discharge Patient Disposition: Admitted As Inpatient Print Language: Uzbek
--- OUTSIDE RECORDS SUMMARY | 2025-09-18 06:33 | XMS_ITS | Encounter Summary ---
Author Organization [facility] Address [address] [place] [address] Phone Care Team Providers Care Robot Operator Name Role Phone Krishan Alvarado DO Primary Care Provider [phone] Bridgett Sarkar MD Primary Care Provider [phone] Encounter Details Date Type Department Care Team (Late st Contact Info) Description 05/11/2024 Transcribe Orders [facility] Specimen Processing [address] [place] [address] Krishan Alvarado DO [address] [place] [address] [email or web address] Social History Tobacco Use Types Packs/Day Years Used Date Smoking Tobacco: Never Smokeless Tobacco: Never Alcohol Use Standard Drinks/Week Comments Not Currently [...] on file Sexual Orientation Not on file documented as of this encounter Plan of Treatment Upcoming Encounters Date Type Department Care Team (Late st Contact Info) Description 10/04/2025 8:00 AM EST Office Visit [facility] [address] [place] [address] Zoya Ho DO [address] [facility], [address] [place] [address] [email or web address] documented as of this encounter Visit Diagnoses Not on filedocumented in this encounter Care Teams Robot Operator Relationship Specialty Start Date End Date Krishan Alvarado DO [address] [place] [id number] PCP - General Family Medicine 12/29/23 03/29/25 Bridgett Sarkar MD [address] [place] [id number] PCP - General Internal Medicine 03/30/25 documented as of this encounter Additional Source Comments The information contained in this document represents components of the legal health record. It is not the complete legal health record.[facility]
[2025-09-18 06:45] LABS: MANUAL DIFF FLAG NO
[2025-09-18 06:49] LABS: Hematocrit 39.8 % (42.0-52.0); Hemoglobin 12.9 g/dl (14.0-18.0); Imm Gran Abs Auto 0.01 X10*3/uL (0.00-0.03); Imm Gran Pct Auto 0.2 % (0.0-0.4); Lymphocytes Absolute Auto 0.3 X10*3/uL (1.2-4.9); Mean Corpuscular HGB Conc 32.4 g/dl (31.0-36.0); Mean Corpuscular Hemoglobin 30.4 pg (27.0-33.0); Mean Corpuscular Volume 93.6 fL (80.0-98.0); NRBC Abs Auto 0.000 X10*3/uL (0.0-0.012); NRBC Pct Auto 0.0 /100WBC (0.0-0.2); Platelet Count 172 X10*3/uL (160-400); Red Blood Count 4.25 X10*6/uL (4.60-5.80); White Blood Count 5.3 X10*3/uL (4.8-10.8)
[2025-09-18 07:00] LABS: Alanine Aminotransferase 28 U/L (0-40); Albumin Level 4.2 g/dL (3.5-5.0); Alkaline Phosphatase 56 U/L (39-117); Anion Gap 13 (12-20); Aspartate Amino Transferase 29 U/L (5-37); Blood Urea Nitrogen 23 mg/dL (9-16); Calcium 9.7 mg/dL (8.4-10.2); Carbon Dioxide 29 mmol/L (22-29); Chloride 101 mmol/L (96-108); Creatinine Clr Calc Pharmacy 60.3; Estimated Glomerular Filt Rate 60; Potassium 4.0 mmol/L (3.3-5.1); Sodium 139 mmol/L (135-145); Total Protein 6.4 g/dL (6.5-8.0)
[2025-09-18 07:59] LABS: Resp Syncy Virus RNA Qual PCR NEGATIVE (Negative); SARS COV2 PCR INHOUSE NEGATIVE (Negative)
--- NOTE | 2025-09-18 08:29 | PC.NURSE ---
patient taken off of oxygen as requested by ED attending, patient had desat down to 88% on room air, patient placed on 2l nc.
--- NOTE | 2025-09-18 09:00 | PC.NURSE ---
Assumed care of patient at 0700. Patient drowsy but arousable to voice. Patient saturating >94% on 2 liters NC, however around 88% on RA. Patient AOx4, IVF infusing. Flu +, awaiting CT scan.
[2025-09-18] MEDS: iohexoL 350 MG/ML 100 ML INFUS..BTL IV (09:21)
--- NOTE | 2025-09-18 12:54 | PM.IMHP ---
History of Present Illness Date of Service: 09/18/25 Chief Complaint: shortness of breath 65-year-old man presenting from home with fever, nausea, malaise, cough for 3 days. Patient was found to have oxygen saturation of 88% on room air as per EMS. He was placed on 2 L of oxygen via nasal cannula with a good effect. Patient reported that he has just been feeling very weak. He does live with his family who assist him as he does have a history of stroke. He reports that he normally uses a walker for ambulation. He was noted to have fever, tachypnea and influenza a was positive. Chest CT was negative for consolidation or effusion. Patient denied chest pain, vomiting, diarrhea, recent illness, sick contacts, recent travel. He was given Tamiflu, Zosyn, azithromycin, Tylenol, 1 L of IV fluid and ibuprofen in the ER. He will be admitted for further management and treatment of acute hypoxic respiratory failure secondary to influenza a. Review of Systems Review of Systems: Denies any recent fever chills or decrease in appetite respiratory See HPI cardiovascular denied chest pain gastrointestinal denies any dysphagia abdominal pain nausea vomiting or diarrhea genitourinary denies any dysuria frequency or hematuria musculoskeletal denies any joint pain or swelling neuropsych denies any weakness or seizures all other systems reviewed are negative [facility] Medical History (Updated 09/18/25 @ 14:01 by Paulina Painter NP) Skin cancer Tubular adenoma GERD (gastroesophageal reflux disease) Asthma Psoriatic arthritis Legionnaires' disease Intraparenchymal hemorrhage of brain HTN (hypertension) Hyperlipidemia Glaucoma Diverticulosis Diabetes CVA (cerebral vascular accident) Surgical History Hx of melanoma excision History of partial colectomy Social History Are you a primary chronic care nurse to a significant other at home: No Do you presently have visiting nurse or other home services: No Patient Tobacco Use Status: Never used Tobacco Advance Directives: Yes Advance Directives on File: Yes Advance Directives Date on File: 05/15/23 Meds Allergies Allergy/AdvReac Type Severity Reaction Status Date / Time No Known Allergies Allergy Verified 09/18/25 06:15 Home Medications ?Medication ?Instructions ?Recorded ?Confirmed ?Last Taken ?Type acetaminophen 500 mg tablet 1,000 mg PO BID 04/16/23 09/18/25 09/17/25 History albuterol sulfate 90 mcg/actuation 2 puff inhalation Q4H PRN wheezing 04/16/23 09/18/25 09/17/25 History aerosol inhaler (Ventolin HFA) aspirin 81 mg tablet,delayed 81 mg PO DAILY 04/16/23 09/18/25 09/17/25 History release atorvastatin 80 mg tablet 80 mg PO BEDTIME 04/16/23 09/18/25 09/17/25 History cholecalciferol (vitamin D3) 125 125 mcg PO DAILY 04/16/23 09/18/25 09/17/25 History mcg (5,000 unit) tablet (Vitamin D3) folic acid 1 mg tablet 1 mg PO SUMOTUTHFRSA@0900 04/16/23 09/18/25 09/17/25 History insulin glargine 100 unit/mL (3 35 unit subcut BEDTIME 04/16/23 09/18/25 09/17/25 History mL) subcutaneous pen (Lantus Solostar U-100 Insulin) methotrexate sodium 2.5 mg tablet 20 mg PO WE@0900 04/16/23 09/18/25 09/14/25 History omeprazole 20 mg capsule,delayed 20 mg PO DAILY@0630 04/16/23 09/18/25 09/17/25 History release insulin aspart U-100 100 unit/mL See Protocol subcut TIDAC 05/12/23 09/18/25 09/17/25 History (3 mL) subcutaneous pen carboxymethylcellulose sodium 1 % 1 drp ophthalmic (eye) QID PRN Dry 06/13/24 09/18/25 09/17/25 History eye liquid gel drops Eyes fexofenadine 180 mg tablet 180 mg PO DAILY 06/13/24 09/18/25 Unknown History lisinopril 20 1 tab PO DAILY 06/13/24 09/18/25 09/17/25 History mg-hydrochlorothiazide 12.5 mg tablet carbidopa 25 mg-levodopa 100 mg 1 tab PO TID 09/18/25 09/18/25 09/17/25 History tablet famotidine 20 mg tablet (Pepcid) 20 mg PO DAILY PRN Acid Reflux 09/18/25 09/18/25 Unknown History omega 2-drw-hik-fish oil 150 1 cap PO DAILY 09/18/25 09/18/25 Unknown History mg-217 mg-840 mg capsule,delayed release (Fish Oil) Physical Exam Vital Signs and Narrative: Vital Signs: Last Vital Signs Temp 98.2 F 09/18/25 12:17 Pulse 59 09/18/25 12:17 Resp 21 H 09/18/25 12:17 BP 101/59 L 09/18/25 12:17 Pulse Ox 97 09/18/25 12:17 O2 Del Method Nasal Cannula 09/18/25 12:17 O2 Flow Rate 2 09/18/25 12:17 BMI result Body Mass Index 27.1 Appearing in no acute distress head is normocephalic atraumatic eyes pupils are PERRLA sclera is anicteric mouth throat mucous membranes are intact and moist neck is supple no lymphadenopathy, no JVD noted lung sounds are clear to auscultation heart regular rate rhythm, clear S1, S2 positive bowel sounds, abdomen is soft, nontender neuro patient is alert x3, no focal deficits Results Labs 09/18/25 06:36 09/18/25 06:36 Labs: Laboratory Results - last 24 hr 09/18/25 09/18/25 06:36 06:37 MCV 93.6 MCH 30.4 MCHC 32.4 RDW 14.1 Plt Count 172 MPV 11.9 Immature Gran % (Auto) 0.2 Neut % (Auto) 79.6 H Lymph % (Auto) 5.2 L [place] % (Auto) 12.0 H Eos % (Auto) 2.1 Baso % (Auto) 0.9 Lymph # (Auto) 0.3 L [place] # (Auto) 0.6 Eos # (Auto) 0.1 Baso # (Auto) 0.1 Abs Immat Gran (auto) 0.01 Absolute Neuts (auto) 4.3 Absolute Nucleated RBC 0.000 Nucleated RBC % (auto) 0.0 Anion Gap 13 Estim Creat Clear Calc 60.3 Estimated GFR 60 Random Glucose 225 H Lactic Acid 0.9 Calcium 9.7 Total Bilirubin 0.6 AST 29 ALT 28 Alkaline Phosphatase 56 Total Protein 6.4 L Albumin 4.2 Influenza Type A (PCR) POSITIVE A Influenza Type B (PCR) NEGATIVE RSV RNA Qual (PCR) NEGATIVE SARS-CoV-2 RNA (RT-PCR) NEGATIVE Assessment and Plan (1) Influenza A: Status: Acute Plan 65-year-old man admitted with viral sepsis secondary to influenza a Viral sepsis secondary to influenza A Fever, tachypnea No pneumonia on chest imaging Start Tamiflu Supplemental oxygen to keep oxygen saturation greater than 90% Supportive care Hypoxia Likely secondary to influenza A Placed on 2 L of nasal cannula with good effect Monitor oxygen saturation closely Diabetes mellitus type 2 Sliding scale, ADA diet Hypertension Stable blood pressure hold BP meds at this time Hyperlipidemia Aspirin and statin BPH Continue terazosin GERD Continue PPI DVT prophylaxis with Lovenox Full code Quality Stroke Does the patient have a stroke diagnosis?: No VTE Prior VTE?: No VTE Risk Level:: Medical - moderate - high VTE Device Contraindication: Treatment Not Indicated VTE Drug Contraindication: N/A - Med Ordered
--- NOTE | 2025-09-18 13:17 | PHA.MEDREC ---
Addendum entered by Jmail Greer RPh 09/18/25 14:11: MED REC REVIEWED BY [facility] Original Note: Pharmacy Consult ? Medication Reconciliation Pharmacy has completed the medication reconciliation. Confirmed medication list with patient, family members of patient and against pharmacy claims history. Patient is no longer taking levofloxacin. Patient and family member state that patient takes 35 units of long-acting insulin (Lantus) before bed, and that sliding scale of 54 units maximum before meals for short acting insulin (humalog). Patient has claim in history for clotrimazole-betamethazone cream, but confirmed with family members that patient has not yet started regimen with this steroid cream. Patient took all other non-PRN medications yesterday, both morning and night doses.
[2025-09-18 13:41] LABS: Appearance Urine Clear; Glucose Urine UA 500 mg/dL (Negative); PH 5.5 (5.0-9.0); Specific Gravity - Urine >= 1.030 (1.005-1.025)
--- NOTE | 2025-09-18 14:43 | PC.NURSE ---
Patient is a 65 year old male full code who presented to ED from home via EMS with fever, malaise, nausea and weakness. Patient has hx of COPD, asthma, DM and stroke with a recent diagnosis of Parkinsons. tested positive for influenza A here. CXR (-), CT Chest (-). Started him on tamiflu here. Patient was saturating at 88% oon room air when he arrived, patient responded well to 2 liters nasal cannula. Trialled him on RA again, and dipped down to 88% so patient is currently on 2 liters. Patient is aox4, has two 20g IV.
[2025-09-18 18:14] LABS: Glucose, Whole Blood 223 mg/dL (60-115)
--- NOTE | 2025-09-18 19:17 | PC.NURSE ---
Report from Yumiko FLORES and Clover RN. Patient awake and alert. skin pwd, resp even and non labored, speaking in full, clear sentences. denies pain. O2 91% on 1lpm via NC, increased O2 to 2lpm at this time, otherwise VSS. patient aware of plan of care.
--- NOTE | 2025-09-18 21:18 | PM.EVENT ---
Event Note Date of Service: 09/19/25 Event Note: Report from ED nurse that BC, gram stain positive for GP Cocci in chains. Pt was given azithromycin and one dose of zosyn in the ED. Starting pt on vancomycin and zosyn until second culture is back. If positive as well, likely more so infection/ bacteremia than contamination. 2229 report of bacterial vs viral conjunctiivtis for this pt per nursung. Pt has crusting noted from both eyes, redenss more prevalent Left eye vs Right eye. Visual acuity intact, pt denies any eye pain. Sulfacetamide eye drops odered Q3H scheduled. Time Spent With Patient Time: Total time managing care of this patient today ____ minutes.
[2025-09-18 21:28] LABS: Glucose, Whole Blood 270 mg/dL (60-115)
--- NOTE | 2025-09-18 21:34 | PHA.PROG ---
Admission Date/Time: September 18, 2025 13:57 Indication: BACTEREMIA Weight in k.2 kg Adjusted body weight in Kg: [place] body weight in Kg: Obesity Dosing Indication % IBW: Serum Creatinine - Last 168 Hours 09/18/25 06:36 Creatinine 1.22 Estimated CrCl and GFR - Last 168 Hours 09/18/25 06:36 Estim Creat Clear Calc 60.3 Estimated GFR 60 Vancomycin Loading Dose: 2000 MG Current Vancomycin Dosing Regimen: 1500 MG Q24 HRS Vancomycin Monitoring using AUC goal of 400 - 600 range with trough as surrogate marker: Date and Time for next Vancomycin Level to be drawn:09/20/251999 Pharmacist Comments on Vancomycin Plan:PREDICTED AUC OF 509 Vancomycin dosing will take advantage of [employer] as a clinical decision support tool that uses Bayesian modeling to calculate individual patient's pharmacokinetic parameters and forecast the patient's drug concentration time course with the target goal AUC 24 range of 400 - 600 mg/L/hr.
[2025-09-18] MEDS: Insulin Glargine,Hum.rec.anlog 100 UNIT/ML 10 ML VIAL 35 UNIT SUBCUT (21:58)
--- NOTE | 2025-09-18 22:17 | PC.NURSE ---
Patient awake and alert. skin flush, warm, dry, resp even and non labored, speaking in full, clear sentences. dry cough noted, lungs clear/dim throughout. temp 100.5 rectally, medicated w/ prn tylenol as well as scheduled meds. bilateral sclera noted to be pink with watery drainage, crust to right eye lashes, pt reports some itching, hospitalist updated.
[2025-09-18] MEDS: vancomycin/NS 2,000 MG/500 ML PLAST..BAG 250 MG IV (23:03)
[2025-09-18] MEDS: Sulfacetamide Sodium 10 % Oph 15 ML DRBTL 2 DROP EYE-BOTH (23:03)
[2025-09-18] MEDS: 0.9 % Sodium Chloride Flush 3 ML SYRINGE IVFLUSH (23:04)
[2025-09-19] VITALS (7 sets, daily range): BP systolic 104–167; BP diastolic 55–86; PULSE 51–113; RESP 13–18; TEMP 36.4–37; O2SAT 94–96
[2025-09-19 05:20] LABS: Hematocrit 36.2 % (42.0-52.0); Hemoglobin 11.6 g/dl (14.0-18.0); Mean Corpuscular HGB Conc 32.0 g/dl (31.0-36.0); Mean Corpuscular Hemoglobin 30.1 pg (27.0-33.0); Mean Corpuscular Volume 93.8 fL (80.0-98.0); NRBC Abs Auto 0.000 X10*3/uL (0.0-0.012); NRBC Pct Auto 0.0 /100WBC (0.0-0.2); Platelet Count 154 X10*3/uL (160-400); Red Blood Count 3.86 X10*6/uL (4.60-5.80); White Blood Count 3.4 X10*3/uL (4.8-10.8)
[2025-09-19] MEDS: Sulfacetamide Sodium 10 % Oph 15 ML DRBTL 2 DROP EYE-BOTH ×7 (05:37→22:43)
[2025-09-19 05:43] LABS: Anion Gap 10 (12-20); Blood Urea Nitrogen 20 mg/dL (9-16); Calcium 8.7 mg/dL (8.4-10.2); Carbon Dioxide 31 mmol/L (22-29); Chloride 102 mmol/L (96-108); Creatinine Clr Calc Pharmacy 58.9; Estimated Glomerular Filt Rate 58; Potassium 4.2 mmol/L (3.3-5.1); Sodium 139 mmol/L (135-145)
--- NOTE | 2025-09-19 05:43 | PC.NURSE ---
patient attempted to stand and use urinal, states he often has trouble with urinating and has not taken his prostate meds d/t not feeling well. able to stand with one assist, denies dizziness endorses weakness. medicated per the MAR. call harman within reach.
[2025-09-19] MEDS: 0.9 % Sodium Chloride Flush 3 ML SYRINGE IVFLUSH ×3 (07:48→22:44)
[2025-09-19] MEDS: Aspirin Enteric Coated 81 MG TABLET.DR PO (07:49)
[2025-09-19 09:00] LABS: Glucose, Whole Blood 194 mg/dL (60-115)
[2025-09-19 09:23] LABS: Glucose, Whole Blood 290 mg/dL (60-115)
--- NOTE | 2025-09-19 11:44 | HO.PM.IMPN ---
Subjective Subjective Date of Service: 09/19/25 Review of Systems Follow up Flu now has bacteremia, unknown source no sob, fever, chills Physical Exam Exam: Exam: Appearing in no acute distress lung sounds are clear to auscultation heart regular rate rhythm, clear S1, S2 positive bowel sounds, abdomen is soft, nontender neuro patient is alert x3, no focal deficits Vital Signs: Vital Signs: Last Vital Signs Temp 97.5 F 09/19/25 08:42 Pulse 65 09/19/25 08:42 Resp 18 09/19/25 08:42 BP 135/62 09/19/25 08:42 Pulse Ox 94 09/19/25 08:42 O2 Del Method Nasal Cannula 09/19/25 08:42 O2 Flow Rate 3 09/19/25 08:42 BMI result Body Mass Index 27.1 Objective Data Active Medications Acetaminophen (Acetaminophen 325 Mg Tablet) 650 mg PO Q6H PRN PRN Reason: Pain, Mild 1-3,fever,headache Last Admin: 09/18/25 22:04 Dose: 650 mg Documented By: LEVY Albuterol Sulfate (Albuterol Sulfate 90 Mcg 8 Gm Inhaler) 2 puff INHALE Q4H PRN PRN Reason: Wheezing Aspirin (Aspirin Enteric Coated 81 Mg Tablet.Dr) 81 mg PO DAILY [facility] Last Admin: 09/19/25 07:49 Dose: 81 mg Documented By: RICHIE Atorvastatin Calcium (Atorvastatin Calcium 80 Mg Tablet) 80 mg PO BEDTIME FUN[facility] Last Admin: 09/18/25 21:57 Dose: 80 mg Documented By: LEVY Calcium Carbonate (Calcium Carbonate 750 Mg Tab.Chew) 750 mg PO Q4H PRN PRN Reason: Heartburn Carbidopa/Levodopa (Carbidopa/Levodopa 25/100 Tablet) 1 tab PO TID FUNMIL[facility]O Last Admin: 09/19/25 07:51 Dose: 1 tab Documented By: RICHIE Dextrose (Dextrose 50 % 25 Gm/50 Ml Syringe) 25 gm IVPUSH Q15M PRN; Protocol PRN Reason: per Hypoglycemia Standing Ord. Doxazosin Mesylate (Doxazosin Mesylate 2 Mg Tablet) 8 mg PO BEDTIME FUNMILAYO; Protocol Last Admin: 09/18/25 21:57 Dose: 8 mg Documented By: LEVY Enoxaparin Sodium (Enoxaparin Sodium 40 Mg/0.4 Ml Syringe) 40 mg SUBCUT Q24H [facility] Last Admin: 09/18/25 14:18 Dose: 40 mg Documented By: JORGE Finasteride (Finasteride 5 Mg Tablet) 5 mg PO DAILY [facility] Last Admin: 09/19/25 08:44 Dose: 5 mg Documented By: RICHIE Folic Acid (Folic Acid 1 Mg Tablet) 1 mg PO SUMOTUTHFRSA@0900 [facility] Last Admin: 09/19/25 07:50 Dose: 1 mg Documented By: RICHIE Glucose (Glucose Gel 15 Gm Gel..Gram.) 15 gm PO Q15M PRN; Protocol PRN Reason: per Hypoglycemia Standing Ord. Vancomycin HCl 1,500 mg/ (Sodium Chloride) 500 mls @ 333.333 mls/hr IV Q24H [facility] Insulin Glargine (Insulin Glargine,Hum.Rec.Anlog 100 Unit/Ml 10 Ml Vial) 35 unit SUBCUT BEDTIME [facility] Last Admin: 09/18/25 21:58 Dose: 35 unit Documented By: LEVY Insulin Human Lispro (Insulin Lispro 100 Unit/Ml 3 Ml Vial) 0 unit SUBCUT QIDACHS [facility]; Protocol Last Admin: 09/19/25 07:47 Dose: 2 unit Documented By: RICHIE Loratadine (Loratadine 10 Mg Tablet) 10 mg PO DAILY [facility] Last Admin: 09/19/25 07:50 Dose: 10 mg Documented By: RICHIE Magnesium Hydroxide (Milk Of Magnesia 30 Ml Oral.Susp) 30 ml PO DAILY PRN PRN Reason: Constipation Melatonin (Melatonin 3 Mg Tablet) 6 mg PO BEDTIME PRN PRN Reason: Insomnia Omeprazole (Omeprazole 20 Mg Capsule.Dr) 20 mg PO DAILY@0630 [facility] Last Admin: 09/19/25 05:37 Dose: 20 mg Documented By: ABRIL Ondansetron HCl (Ondansetron Hcl 4 Mg/2 Ml Vial) 4 mg IVPUSH Q8H PRN PRN Reason: Nausea and Vomiting Oseltamivir Phosphate (Oseltamivir Phosphate 75 Mg Capsule) 75 mg PO Q12H [facility] Stop: 09/22/25 21:01 Last Admin: 09/19/25 07:50 Dose: 75 mg Documented By: RICHIE Pharmacy Consult (Consult Rx Vancomycin Dosing) 1 each MISCELLANE DAILY PRN PRN Reason: Consult order Sodium Chloride (0.9 % Sodium Chloride Flush 3 Ml Syringe) 3 ml IVFLUSH QSHIFT [facility] Last Admin: 09/19/25 07:48 Dose: 3 ml Documented By: RICHIE Sulfacetamide Sodium (Sulfacetamide Sodium 10 % Oph 15 Ml Drbtl) 2 drop EYE-BOTH Q3H [facility] Stop: 09/21/25 22:59 Last Admin: 09/19/25 11:09 Dose: 2 drop Documented By: ENEIDA Vitamin D (Cholecalciferol (Vitamin D3) 25 Mcg Tablet) 125 mcg PO DAILY [facility] Last Admin: 09/19/25 07:50 Dose: 125 mcg Documented By: RICHIE Labs 09/19/25 05:09 09/19/25 05:09 Labs: Laboratory Results - last 24 hr 09/18/25 09/18/25 09/18/25 13:35 18:10 21:23 MCV MCH MCHC RDW Plt Count MPV Absolute Nucleated RBC Nucleated RBC % (auto) Anion Gap Estim Creat Clear Calc Estimated GFR POC Glucose 223 H 270 H Random Glucose Calcium Urine Color Yellow Urine Appearance Clear Urine pH 5.5 Ur Specific Sax[place] >= 1.030 H Urine Protein Trace Urine Glucose (UA) 500 H Urine Ketones 15 Urine Blood Negative Urine Nitrite Negative Ur Leukocyte Esterase Negative 09/19/25 09/19/25 09/19/25 05:09 07:05 09:11 MCV 93.8 MCH 30.1 MCHC 32.0 RDW 14.2 Plt Count 154 L MPV 11.8 Absolute Nucleated RBC 0.000 Nucleated RBC % (auto) 0.0 Anion Gap 10 L Estim Creat Clear Calc 58.9 Estimated GFR 58 POC Glucose 194 H 290 H Random Glucose 198 H Calcium 8.7 D Urine Color Urine Appearance Urine pH Ur Specific [place] Urine Protein Urine Glucose (UA) Urine Ketones Urine Blood Urine Nitrite Ur Leukocyte Esterase Microbiology Microbiology Results: Microbiology 09/18/25 06:37 Blood Culture - Preliminary Blood - Venous No growth after 24 hours. 09/18/25 06:36 Blood Culture - Preliminary Blood - Venous Enterococcus/Streptococcus sp Assessment and Plan (1) Influenza A: Status: Acute Plan 65-year-old man admitted with viral sepsis secondary to influenza A Enterococcus/Streptococcus bacteremia 1/2 Continue IV vancomycin Follow up final culture Echocardiogram to rule out endocarditis ID consultation Viral sepsis secondary to influenza A Fever, tachypnea No pneumonia on chest imaging continue Tamiflu Supplemental oxygen to keep oxygen saturation greater than 90% Supportive care Hypoxia Likely secondary to influenza A Placed on 2 L of nasal cannula with good effect Monitor oxygen saturation closely Diabetes mellitus type 2 Sliding scale, ADA diet Hypertension Stable blood pressure hold BP meds at this time Hyperlipidemia Aspirin and statin BPH Continue terazosin GERD Continue PPI DVT prophylaxis with Lovenox Full code Quality Stroke Does the patient have a stroke diagnosis?: No VTE Prior VTE?: No VTE Risk Level:: Medical - moderate - high VTE Device Contraindication: Treatment Not Indicated VTE Drug Contraindication: N/A - Med Ordered
[2025-09-19 11:58] LABS: Glucose, Whole Blood 326 mg/dL (60-115)
--- NOTE | 2025-09-19 12:00 | CA_ITS ---
Transthoracic Echocardiogram Patient (Last, First, Middle): Sandeep Carrasquillo L Gender: Male Date of : 1960 Age: 65 Procedure Date: 09/19/2025 Procedure Type: Transthoracic Echocardiogram Location: S3E Height: 175.26 cm Weight: 83.01 kg BSA: 1.99 m2 Heart Rate: bpm BP: 145 / 62 mmHg Cupola Liner: MILE Referring MD: Paulina Painter NP Refining Supervisor: Benson Gauthier MD Symptoms: Enterococcus/Streptococcus bacteremia Study Quality: Adequate ECG Rhythm: Sinus Conclusions: - 1. Normal LV ejection fraction of 60 65% 2. No obvious evidence of vegetations on this study with normal cardiac valvular Dopplers 3. Normal RV systolic pressure 4. Mildly dilated ascending aorta at 3.8 cm 5. No gross pericardial effusion Findings Left Ventricle Normal left ventricular size, thickness, and systolic function. The visually estimated ejection fraction is between 60-65%. Spectral Doppler is indicative of a normal filling pattern. Right Ventricle Normal right ventricular cavity size and systolic function. Atria The left atrium is mildly dilated. There is no evidence of interatrial shunt. The right atrium is normal in size. Aortic Valve Normal aortic valve structure and function. There is no aortic valve stenosis. There is no aortic valve regurgitation. Mitral Valve Normal mitral valve structure and function. There is trace mitral valve regurgitation. There is no mitral valve stenosis. Pulmonic Valve The pulmonic valve is likely normal. There is trace pulmonic valve regurgitation. Tricuspid Valve Normal tricuspid valve structure. There is trace tricuspid valve regurgitation. The right ventricular systolic pressure is normal. Normal right atrial pressure. There is no evidence of pulmonary hypertension. Great Vessels The pulmonary artery was not well visualized. There is mild dilatation of the ascending aorta measuring 3.80 cm. Venous The inferior vena cava is normal in size and collapses greater than 50% with inspiration. Pericardium/Pleural There is no evidence of pericardial effusion. Prior Study Comparison No significant change compared to prior study dated: 05/13/2023. Measurements 2D Linear Measurements IVSd: 1.14 0.6-0.9/0.6-1.0 cm LVIDd: 4.67 3.9-5.3/4.2-5.9 cm LVIDd Index: 2.35 2.4-3.2/2.2-3.1 cm/m2 LVIDs: 2.94 2.0-3.6 cm LVPWd: 1.07 0.7-1.1 cm LA Diam: 4.00 2.7-3.8/3.0-4.0 cm LAIDs Index: 2.01 1.5-2.3 cm/m2 LV Mass: 232.77 67-162/88-224 g LV Mass Index: 116.97 43-95/49-115 g/m2 LVOT Diam: 2.00 3.0+(-)1.3 cm 2D Systolic Function EF 4C: 63.50 >55% EF 2C: 63.40 >55% EF BiP: 63.10 >55% Mitral Valve MV Pk E: 0.85 MV PK A: 0.66 MV Decel Time: 213.00 E/A: 1.30 E'Lateral: 11.30 E'Medial: 9.25 E/E' Med: 9.20 E/E' Lat: 7.50 PHT: 62.00 MVA PHT: 3.55 Decel [place]: 4.01 Aortic Valve AoV Pk Anthony: 1.18 AoV Mn Anthony: 0.86 AoV VTI: 0.29 AoV Pk Grad: 6.00 Aov Mn Grad: 3.00 DANIA Cont.VTI: 2.61 LVOT LVOT Pk Anthony: 1.06 LVOT Mn Anthony: 0.67 LVOT VTI: 0.24 LVOT Pk Grad: 4.00 LVOT Mn Grad: 2.00 LVOT Diam: 2.00 LVOT Area: 3.14 Diastolic Function MV Pk E: 0.85 MV Pk A: 0.66 E/A: 1.30 E'Medial: 9.25 E/E' Med: 9.20 E' Laterial: 11.30 E/E' Lat: 7.50 Right Ventricle TAPSE (mm): 23.30 TVS' Anthony: 12.20 Tricuspid Valve TR Pk Anthony: 2.35 TR Pk Grad: 22.00 RA Press: 3.00 RVSP: 25.00 Great Vessels Aorta Sinus of Valsalva: 3.72 2.0-3.[address] [place]: 3.35 1.7-3.4 cm Ao Asc: 3.80 2.1-3.4 cm Ao Arch: 3.60 Pulmonary Veins Pulm Vein S/D 1.10 Updated in Other Vendor System with Status of Final Benson Gauthier MD electronically signed on 09/20/2025 2:30:05 PM with status of Final
[2025-09-19 16:32] LABS: Glucose, Whole Blood 307 mg/dL (60-115)
[2025-09-19 20:08] LABS: Glucose, Whole Blood 211 mg/dL (60-115)
[2025-09-19] MEDS: Insulin Glargine,Hum.rec.anlog 100 UNIT/ML 10 ML VIAL 35 UNIT SUBCUT (20:10)
[2025-09-20] MEDS: Sulfacetamide Sodium 10 % Oph 15 ML DRBTL 2 DROP EYE-BOTH ×8 (01:43→22:07)
[2025-09-20 04:00] VITALS: BP 110/60; PULSE 54; RESP 18; TEMP 36.4; O2SAT 93
[2025-09-20 06:49] LABS: Creatinine Clr Calc Pharmacy 65.1; Estimated Glomerular Filt Rate > 60
[2025-09-20 07:33] LABS: Glucose, Whole Blood 178 mg/dL (60-115)
[2025-09-20] MEDS: Aspirin Enteric Coated 81 MG TABLET.DR PO (07:39)
[2025-09-20] MEDS: 0.9 % Sodium Chloride Flush 3 ML SYRINGE IVFLUSH ×3 (07:40→19:54)
[2025-09-20 07:43] VITALS: BP 144/62; PULSE 57; RESP 18; TEMP 36.2; O2SAT 93
--- NOTE | 2025-09-20 09:26 | HO.PM.IMPN ---
Subjective Subjective Date of Service: 09/20/25 Review of Systems Follow up Flu now has Enterococcus faecalis bacteremia, unknown source no sob, fever, chills, no pain Physical Exam Exam: Exam: Appearing in no acute distress lung sounds are clear to auscultation heart regular rate rhythm, clear S1, S2 positive bowel sounds, abdomen is soft, nontender neuro patient is alert x3, no focal deficits Vital Signs: Vital Signs: Last Vital Signs Temp 97.2 F 09/20/25 07:43 Pulse 57 09/20/25 07:43 Resp 18 09/20/25 07:43 BP 144/62 H 09/20/25 07:43 Pulse Ox 93 09/20/25 07:43 O2 Del Method Nasal Cannula 09/20/25 07:43 O2 Flow Rate 2 09/20/25 07:43 BMI result Body Mass Index 27.1 Objective Data Active Medications Acetaminophen (Acetaminophen 325 Mg Tablet) 650 mg PO Q6H PRN PRN Reason: Pain, Mild 1-3,fever,headache Last Admin: 09/18/25 22:04 Dose: 650 mg Documented By: LEVY Albuterol Sulfate (Albuterol Sulfate 90 Mcg 8 Gm Inhaler) 2 puff INHALE Q4H PRN PRN Reason: Wheezing Aspirin (Aspirin Enteric Coated 81 Mg Tablet.) 81 mg PO DAILY [facility] Last Admin: 09/20/25 07:39 Dose: 81 mg Documented By: ENID Atorvastatin Calcium (Atorvastatin Calcium 80 Mg Tablet) 80 mg PO BEDTIME [facility] Last Admin: 09/19/25 20:10 Dose: 80 mg Documented By: MAYKEL Calcium Carbonate (Calcium Carbonate 750 Mg Tab.Chew) 750 mg PO Q4H PRN PRN Reason: Heartburn Carbidopa/Levodopa (Carbidopa/Levodopa 25/100 Tablet) 1 tab PO TID [facility] Last Admin: 09/20/25 07:40 Dose: 1 tab Documented By: ENID Dextrose (Dextrose 50 % 25 Gm/50 Ml Syringe) 25 gm IVPUSH Q15M PRN; Protocol PRN Reason: per Hypoglycemia Standing Ord. Doxazosin Mesylate (Doxazosin Mesylate 2 Mg Tablet) 8 mg PO BEDTIME [facility]; Protocol Last Admin: 09/19/25 20:10 Dose: 8 mg Documented By: MAYKEL Enoxaparin Sodium (Enoxaparin Sodium 40 Mg/0.4 Ml Syringe) 40 mg SUBCUT Q24H [facility] Last Admin: 09/19/25 14:32 Dose: 40 mg Documented By: ENEIDA Finasteride (Finasteride 5 Mg Tablet) 5 mg PO DAILY [facility] Last Admin: 09/20/25 07:39 Dose: 5 mg Documented By: ENID Folic Acid (Folic Acid 1 Mg Tablet) 1 mg PO SUMOTUTHFRSA@0900 [facility] Last Admin: 09/20/25 07:39 Dose: 1 mg Documented By: ENID Glucose (Glucose Gel 15 Gm Gel..Gram.) 15 gm PO Q15M PRN; Protocol PRN Reason: per Hypoglycemia Standing Ord. Vancomycin HCl 1,500 mg/ (Sodium Chloride) 500 mls @ 333.333 mls/hr IV Q24H [facility] Last Infusion: 09/20/25 00:23 Dose: Infused Documented By: CEE Insulin Glargine (Insulin Glargine,Hum.Rec.Anlog 100 Unit/Ml 10 Ml Vial) 35 unit SUBCUT BEDTIME [facility] Last Admin: 09/19/25 20:10 Dose: 35 unit Documented By: MAYKEL Insulin Human Lispro (Insulin Lispro 100 Unit/Ml 3 Ml Vial) 0 unit SUBCUT QIDACHS [facility]; Protocol Last Admin: 09/20/25 07:40 Dose: 2 unit Documented By: ENID Loratadine (Loratadine 10 Mg Tablet) 10 mg PO DAILY [facility] Last Admin: 09/20/25 07:39 Dose: 10 mg Documented By: ENID Magnesium Hydroxide (Milk Of Magnesia 30 Ml Oral.Susp) 30 ml PO DAILY PRN PRN Reason: Constipation Melatonin (Melatonin 3 Mg Tablet) 6 mg PO BEDTIME PRN PRN Reason: Insomnia Omeprazole (Omeprazole 20 Mg Capsule.Dr) 20 mg PO DAILY@0630 [facility] Last Admin: 09/20/25 06:22 Dose: 20 mg Documented By: CEE Ondansetron HCl (Ondansetron Hcl 4 Mg/2 Ml Vial) 4 mg IVPUSH Q8H PRN PRN Reason: Nausea and Vomiting Oseltamivir Phosphate (Oseltamivir Phosphate 75 Mg Capsule) 75 mg PO Q12H [facility] Stop: 09/22/25 21:01 Last Admin: 09/20/25 07:39 Dose: 75 mg Documented By: ENID Pharmacy Consult (Consult Rx Vancomycin Dosing) 1 each MISCELLANE DAILY PRN PRN Reason: Consult order Sodium Chloride (0.9 % Sodium Chloride Flush 3 Ml Syringe) 3 ml IVFLUSH QSHIFT [facility] Last Admin: 09/20/25 07:40 Dose: 3 ml Documented By: ENID Sulfacetamide Sodium (Sulfacetamide Sodium 10 % Oph 15 Ml Drbtl) 2 drop EYE-BOTH Q3H [facility] Stop: 09/21/25 22:59 Last Admin: 09/20/25 07:43 Dose: 2 drop Documented By: ENID Vitamin D (Cholecalciferol (Vitamin D3) 25 Mcg Tablet) 125 mcg PO DAILY [facility] Last Admin: 09/20/25 07:39 Dose: 125 mcg Documented By: ENID Labs 09/19/25 05:09 09/20/25 05:28 Labs: Laboratory Results - last 24 hr 09/19/25 09/19/25 09/19/25 11:48 16:06 20:04 Estim Creat Clear Calc Estimated GFR POC Glucose 326 H 307 H 211 H 09/20/25 09/20/25 05:28 07:26 Estim Creat Clear Calc 65.1 Estimated GFR > 60 POC Glucose 178 H Microbiology Microbiology Results: Microbiology 09/18/25 06:36 Blood Culture - Final Blood - Venous Enterococcus faecalis 09/18/25 06:37 Blood Culture - Preliminary Blood - Venous No growth after 48 hours. Assessment and Plan (1) Influenza A: Status: Acute Plan 65-year-old man admitted with viral sepsis secondary to influenza A Enterococcus faecalis unknown etiology, ua neg, no GI symptoms 1/2 Continue IV vancomycin Echocardiogram to rule out endocarditis ID consultation PICC line ordered abd ct to r/o GI source Viral sepsis secondary to influenza A Sepsis resolved No pneumonia on chest imaging continue Tamiflu Supplemental oxygen to keep oxygen saturation greater than 90% Supportive care Hypoxia Likely secondary to influenza A continue 2 L of nasal cannula with good effect wean oxygen Diabetes mellitus type 2 Sliding scale, ADA diet Hypertension blood pressure controlled hold BP meds at this time Hyperlipidemia Aspirin and statin BPH Continue terazosin GERD Continue PPI DVT prophylaxis with Lovenox Full code Quality Stroke Does the patient have a stroke diagnosis?: No VTE Prior VTE?: No VTE Risk Level:: Medical - moderate - high VTE Device Contraindication: Treatment Not Indicated VTE Drug Contraindication: N/A - Med Ordered
[2025-09-20 09:46] VITALS: O2SAT 95
--- NOTE | 2025-09-20 09:54 | W.PM.IDCN ---
History of Present Illness Data of Consult Service Date: 09/19/25 Requesting physician: Paulina Painter Primary Care Provider: Rodolfo Sim PA-C HPI Reason for consult: enterococcus faecalis bacteremia He presents to ER on 09/18 with cough and shortness of breath for last two days. He had oxygen saturation initially 88% He has no GI or symptoms He has 1/2 blood cultures enterococcus faecalis. Review of Systems Review of Systems: Yes all other systems are reviewed and are negative PMFSH Past Medical History Medical History (Updated 09/20/25 @ 10:01 by Elaine Sahni MD) Bacteremia Skin cancer Tubular adenoma GERD (gastroesophageal reflux disease) Asthma Psoriatic arthritis Legionnaires' disease Intraparenchymal hemorrhage of brain HTN (hypertension) Hyperlipidemia Glaucoma Diverticulosis Diabetes CVA (cerebral vascular accident) Family History Family history: reviewed and not pertinent Surgical History Surgical History Hx of melanoma excision History of partial colectomy Social History Social History Household Members: Other Household Members Other:: daughter Housing: House Are you a primary animal care service worker to a significant other at home: No Do you presently have visiting nurse or other home services: Yes (neighbor is credentialing specialist) Patient Tobacco Use Status: Never used Tobacco Advance Directives Date on File: 05/15/23 Meds Allergies Allergy/AdvReac Type Severity Reaction Status Date / Time No Known Allergies Allergy Verified 09/18/25 06:15 Active Medications: Current Medications Acetaminophen (Acetaminophen 325 Mg Tablet) 650 mg PO Q6H PRN PRN Reason: Pain, Mild 1-3,fever,headache Last Admin: 09/18/25 22:04 Dose: 650 mg Albuterol Sulfate (Albuterol Sulfate 90 Mcg 8 Gm Inhaler) 2 puff INHALE Q4H PRN PRN Reason: Wheezing Aspirin (Aspirin Enteric Coated 81 Mg Tablet.) 81 mg PO DAILY [facility] Last Admin: 09/20/25 07:39 Dose: 81 mg Atorvastatin Calcium (Atorvastatin Calcium 80 Mg Tablet) 80 mg PO BEDTIME [facility] Last Admin: 09/19/25 20:10 Dose: 80 mg Calcium Carbonate (Calcium Carbonate 750 Mg Tab.Chew) 750 mg PO Q4H PRN PRN Reason: Heartburn Carbidopa/Levodopa (Carbidopa/Levodopa 25/100 Tablet) 1 tab PO TID [facility] Last Admin: 09/20/25 07:40 Dose: 1 tab Dextrose (Dextrose 50 % 25 Gm/50 Ml Syringe) 25 gm IVPUSH Q15M PRN; Protocol PRN Reason: per Hypoglycemia Standing Ord. Doxazosin Mesylate (Doxazosin Mesylate 2 Mg Tablet) 8 mg PO BEDTIME [facility]; Protocol Last Admin: 09/19/25 20:10 Dose: 8 mg Enoxaparin Sodium (Enoxaparin Sodium 40 Mg/0.4 Ml Syringe) 40 mg SUBCUT Q24H [facility] Last Admin: 09/19/25 14:32 Dose: 40 mg Finasteride (Finasteride 5 Mg Tablet) 5 mg PO DAILY [facility] Last Admin: 09/20/25 07:39 Dose: 5 mg Folic Acid (Folic Acid 1 Mg Tablet) 1 mg PO SUMOTUTHFRSA@0900 [facility] Last Admin: 09/20/25 07:39 Dose: 1 mg Glucose (Glucose Gel 15 Gm Gel..Gram.) 15 gm PO Q15M PRN; Protocol PRN Reason: per Hypoglycemia Standing Ord. Vancomycin HCl 1,500 mg/ (Sodium Chloride) 500 mls @ 333.333 mls/hr IV Q24H [facility] Last Infusion: 09/20/25 00:23 Dose: Infused Insulin Glargine (Insulin Glargine,Hum.Rec.Anlog 100 Unit/Ml 10 Ml Vial) 35 unit SUBCUT BEDTIME [facility] Last Admin: 09/19/25 20:10 Dose: 35 unit Insulin Human Lispro (Insulin Lispro 100 Unit/Ml 3 Ml Vial) 0 unit SUBCUT QIDACHS [facility]; Protocol Last Admin: 09/20/25 07:40 Dose: 2 unit Loratadine (Loratadine 10 Mg Tablet) 10 mg PO DAILY [facility] Last Admin: 09/20/25 07:39 Dose: 10 mg Magnesium Hydroxide (Milk Of Magnesia 30 Ml Oral.Susp) 30 ml PO DAILY PRN PRN Reason: Constipation Melatonin (Melatonin 3 Mg Tablet) 6 mg PO BEDTIME PRN PRN Reason: Insomnia Omeprazole (Omeprazole 20 Mg Capsule.Dr) 20 mg PO DAILY@0630 [facility] Last Admin: 09/20/25 06:22 Dose: 20 mg Ondansetron HCl (Ondansetron Hcl 4 Mg/2 Ml Vial) 4 mg IVPUSH Q8H PRN PRN Reason: Nausea and Vomiting Oseltamivir Phosphate (Oseltamivir Phosphate 75 Mg Capsule) 75 mg PO Q12H [facility] Stop: 09/22/25 21:01 Last Admin: 09/20/25 07:39 Dose: 75 mg Pharmacy Consult (Consult Rx Vancomycin Dosing) 1 each MISCELLANE DAILY PRN PRN Reason: Consult order Sodium Chloride (0.9 % Sodium Chloride Flush 3 Ml Syringe) 3 ml IVFLUSH QSHIFT [facility] Last Admin: 09/20/25 07:40 Dose: 3 ml Sulfacetamide Sodium (Sulfacetamide Sodium 10 % Oph 15 Ml Drbtl) 2 drop EYE-BOTH Q3H [facility] Stop: 09/21/25 22:59 Last Admin: 09/20/25 07:43 Dose: 2 drop Vitamin D (Cholecalciferol (Vitamin D3) 25 Mcg Tablet) 125 mcg PO DAILY [facility] Last Admin: 09/20/25 07:39 Dose: 125 mcg Home Medications ?Medication ?Instructions ?Recorded ?Confirmed ?Last Taken ?Type acetaminophen 500 mg tablet 1,000 mg PO BID 04/16/23 09/18/25 09/17/25 History albuterol sulfate 90 mcg/actuation 2 puff inhalation Q4H PRN wheezing 04/16/23 09/18/25 09/17/25 History aerosol inhaler (Ventolin HFA) aspirin 81 mg tablet,delayed 81 mg PO DAILY 04/16/23 09/18/25 09/17/25 History release atorvastatin 80 mg tablet 80 mg PO BEDTIME 04/16/23 09/18/25 09/17/25 History cholecalciferol (vitamin D3) 125 125 mcg PO DAILY 04/16/23 09/18/25 09/17/25 History mcg (5,000 unit) tablet (Vitamin D3) folic acid 1 mg tablet 1 mg PO SUMOTUTHFRSA@0900 04/16/23 09/18/25 09/17/25 History insulin glargine 100 unit/mL (3 35 unit subcut BEDTIME 04/16/23 09/18/25 09/17/25 History mL) subcutaneous pen (Lantus Solostar U-100 Insulin) methotrexate sodium 2.5 mg tablet 20 mg PO WE@0900 04/16/23 09/18/25 09/14/25 History omeprazole 20 mg capsule,delayed 20 mg PO DAILY@0630 04/16/23 09/18/25 09/17/25 History release carboxymethylcellulose sodium 1 % 1 drp ophthalmic (eye) QID PRN Dry 06/13/24 09/18/25 09/17/25 History eye liquid gel drops Eyes fexofenadine 180 mg tablet 180 mg PO DAILY 06/13/24 09/18/25 Unknown History lisinopril 20 1 tab PO DAILY 06/13/24 09/18/25 09/17/25 History mg-hydrochlorothiazide 12.5 mg tablet carbidopa 25 mg-levodopa 100 mg 1 tab PO TID 09/18/25 09/18/25 09/17/25 History tablet famotidine 20 mg tablet (Pepcid) 20 mg PO DAILY PRN Acid Reflux 09/18/25 09/18/25 Unknown History insulin lispro 100 unit/mL See Protocol subcut TIDAC 09/18/25 09/18/25 09/17/25 History subcutaneous pen (Humalog KwikPen (U-100) Insulin) omega [id number]-fish oil 150 1 cap PO DAILY 09/18/25 09/18/25 Unknown History mg-217 mg-840 mg capsule,delayed release (Fish Oil) Physical Exam Vital Signs: Vital Signs: Last Vital Signs Temp 97.2 F 09/20/25 07:43 Pulse 57 09/20/25 07:43 Resp 18 09/20/25 07:43 BP 144/62 H 09/20/25 07:43 Pulse Ox 95 09/20/25 09:46 O2 Del Method Room Air 09/20/25 09:46 O2 Flow Rate 2 09/20/25 07:43 BMI result Body Mass Index 27.1 Const: General: cooperative HEENT: Head: Yes normal to inspection Face and sinus: Yes normal facial exam Mouth: Normal oral and palatal mucosa present Teeth and gingiva: dentition normal Eyes: General: appearance normal, both eyes and all related structures Pupils: Equal, round and reactive pupils present Resp: Effort & Inspection: normal respiratory effort Cardio: Rate: regular rate Rhythm: regular rhythm GI: Palpation (GI): Soft to palpation and nontender : General: Yes no CVA tenderness Back/Spine/Pelvis: Back: no CVA tenderness Skin: General skin exam: no rashes or lesions noted Neuro: General: moves all extremities Cranial nerves: Yes Equal, round and reactive pupils present Extrem: General: Yes normal to inspection Psych: Appearance: grossly normal Results Labs 09/19/25 05:09 09/20/25 05:28 Labs: BMP 09/20/25 05:28 Creatinine 1.13 Microbiology Microbiology Results: Microbiology 09/18/25 06:36 Blood - Venous Blood Culture - Final Enterococcus faecalis 09/18/25 06:37 Blood - Venous Blood Culture - Preliminary No growth after 48 hours. Assessment and Plan (1) Renal cyst: Status: Acute (2) Urinary retention: Status: Acute (3) Bacteremia: Status: Acute Plan Can use Zosyn cover any occult bowel pathology, Stop Vancomycin Would await repeat blood cultures negative 24 hour minimum Check TTE evaluate endocarditis Await CT abdomen and pelvis (ordered for today it appears). If all negative po Amoxicillin 500 mg tid for 14 d total. Stop oseltamivir at 5 days
--- NOTE | 2025-09-20 11:06 | MHC.CM.PN ---
IMM DELIVERED. PT LIVES WITH ADULT CHILDREN AND USES A WALKER FOR MOBILITY. PT HAS 9 HRS OF MEDICAL AND SCIENTIFIC ILLUSTRATOR ASSIST VIA [facility]. + HCP ON FILE AND PCP IS A PROVIDER AT [facility] (FORGETS NAME). DP: HOME WITH NEW [facility] SERVICES (FIRST CHOICE [facility]) AND POSSIBLE NEED FOR HOME IV ABT. PER PT, SON IS A NURSE AND CAN ASSIST. REFERRALS PLACED TO [facility] AND [facility]. PT HAS OWN RIDE HOME ON DC. CM WILL CONTINUE TO FOLLOW FOR PLAN.
[2025-09-20 11:15] LABS: Glucose, Whole Blood 242 mg/dL (60-115)
--- NOTE | 2025-09-20 12:06 | HO.WOUND ---
Wound Consult: Initial 65 yr old male admitted to [facility] on 09/18/25- See progress notes and H&P for detailed history. Wound consult placed for left groin. Patient agreeable to assessment and photo documentation. Patient with incontinence, reports that he wears incontinent briefs at baseline. Recommend barrier cream, instructed to use at home also. Left groin Buttocks Etiology: MASD Wound Bed: intact moist and blanchable redness Drainage / Odor: none Charmaine wound: ? No Induration, Fluctuance or Warmth noted Pain: none Goals of Treatment: ? triad paste - offloading with Q2H turns Recommendations: 1. Turn and Reposition every 2 hours and as needed for patient comfort. Use pillows or wedges to support off loading positions. 2. Off Load all bony prominences with use of pillows and heel boots if needed. Apply Preventative foams where needed. 3. Use waffle cushion when up to chair, limit sitting times to 1-2 hours 3. Monitor for incontinence and moisture control, use barrier creams when needed for prevention and treatment. 4. Provide adequate and supplemental nutrition. 5. Order or Continue low air loss mattress. 6. When applicable maintain blood glucose levels per Providers order. Groin and buttocks: Off Load Pressure with Q2 hr turns and use of pillows - Cleanse with PH balance spray or wipes, pat dry. ?Apply thin layer of Triad to wound bed - only pat and dab no scrub and rub when soiling occurs. Reapply thin layer PRN after each episode of incontinence. Re-consult wound care Nurse for wound deterioration or wound changes.
[2025-09-20 16:00] VITALS: BP 152/73; PULSE 55; RESP 18; TEMP 36.7; O2SAT 95
[2025-09-20 16:12] LABS: Glucose, Whole Blood 290 mg/dL (60-115)
[2025-09-20 19:50] VITALS: BP 138/66; PULSE 62; RESP 19; TEMP 36.9; O2SAT 94
[2025-09-20 20:32] LABS: Glucose, Whole Blood 301 mg/dL (60-115)
[2025-09-20 22:00] VITALS: BP 138/66
[2025-09-20] MEDS: Insulin Glargine,Hum.rec.anlog 100 UNIT/ML 10 ML VIAL 35 UNIT SUBCUT (22:01)
--- NOTE | 2025-09-20 23:08 | P.PNID_ITS ---
Subjective Subjective Date of Service: 09/20/25 Critical Care Time (minutes): 15 Comment: He has no complaints Objective Data Labs 09/19/25 05:09 09/20/25 05:28 Labs: Laboratory Results - last 24 hr 09/20/25 09/20/25 09/20/25 05:28 07:26 11:04 Creatinine 1.13 Estim Creat Clear Calc 65.1 Estimated GFR > 60 POC Glucose 178 H 242 H Random Vancomycin 09/20/25 09/20/25 09/20/25 16:08 19:47 20:29 Creatinine Estim Creat Clear Calc Estimated GFR POC Glucose 290 H 301 H Random Vancomycin 7.1 L Microbiology Microbiology Results: Microbiology 09/18/25 06:36 Blood - Venous Blood Culture - Final Enterococcus faecalis 09/18/25 06:37 Blood - Venous Blood Culture - Preliminary No growth after 48 hours. Physical Exam 2 Vital Signs: Vital Signs: Last Vital Signs Temp 98.5 F 09/20/25 19:50 Pulse 62 09/20/25 19:50 Resp 19 09/20/25 19:50 BP 138/66 09/20/25 22:00 Pulse Ox 94 09/20/25 19:50 O2 Del Method Room Air 09/20/25 19:50 O2 Flow Rate 2 09/20/25 07:43 BMI result Body Mass Index 27.1 Const: General: cooperative HEENT: Head: Yes normal to inspection Face and sinus: Yes normal facial exam Mouth: Normal oral and palatal mucosa present Teeth and gingiva: d entition normal Eyes: General: appearance normal, both eyes and all related structures P upils: Equal, round and reactive pupils present Resp: Effort & Inspection: normal respiratory effort Cardio: Rate: regular rate Rhythm: regular rhythm GI: Palpation (GI): Soft to palpation and nontender : General: Yes no CVA tenderness Back/Spine/Pelvis: Back: no CVA tenderness Skin: General skin exam: no rashes or lesions noted Neuro: General: moves all extremities Cranial nerves: Yes Equal, round and reactive pupils present Extrem: General: Yes normal to inspection Psych: Appearance: grossly normal Assessment and Plan Assessment and plan (1) Pneumonitis: Problem details: He is feeling better Abdominal CT unremarkable for source Possible urinary Status: Acute Plan Probably go with total 14 day Amoxicillin 500mg tid po if TTE negative and repeat blood culture negative. Time Spent With Patient Time: Total time managing care of this patient today ____ minutes.
[2025-09-21] MEDS: Sulfacetamide Sodium 10 % Oph 15 ML DRBTL 2 DROP EYE-BOTH ×6 (01:57→19:57)
[2025-09-21 03:17] VITALS: BP 141/63; PULSE 60; RESP 17; TEMP 36.8; O2SAT 92
[2025-09-21 06:50] LABS: Creatinine Clr Calc Pharmacy 65.7; Estimated Glomerular Filt Rate > 60
[2025-09-21 07:38] LABS: Glucose, Whole Blood 236 mg/dL (60-115)
[2025-09-21 07:47] VITALS: BP 152/69; PULSE 56; RESP 18; TEMP 36.6; O2SAT 95
[2025-09-21] MEDS: Aspirin Enteric Coated 81 MG TABLET.DR PO (08:02)
[2025-09-21 11:35] LABS: Glucose, Whole Blood 304 mg/dL (60-115)
[2025-09-21] MEDS: Milk of Magnesia 30 ML ORAL.SUSP PO (14:03)
--- NOTE | 2025-09-21 15:36 | HO.PM.IMPN ---
Subjective Subjective Date of Service: 09/21/25 Interval History: No acute issues overnight. Feels weak but at baseline Review of Systems Denies chest pain Denies shortness of breath Denies nausea vomiting diarrhea Denies fever chills Physical Exam Vital Signs: Vital Signs: Last Vital Signs Temp 97.8 F 09/21/25 07:47 Pulse 56 09/21/25 07:47 Resp 18 09/21/25 07:47 BP 152/69 H 09/21/25 07:47 Pulse Ox 95 09/21/25 07:47 O2 Del Method Room Air 09/21/25 07:47 O2 Flow Rate 2 09/20/25 07:43 BMI result Body Mass Index 27.1 Const: Other: Awake alert no acute distress Resp: Other: Clear to auscultation bilaterally no rales rhonchi or wheezes Cardio: Other: No S4; positive S1-S2; no S3 murmurs rubs or gallops GI: Other: Soft nontender nondistended normoactive bowel sounds Extrem: Other: No edema bilaterally Objective Data Active Medications Acetaminophen (Acetaminophen 325 Mg Tablet) 650 mg PO Q6H PRN PRN Reason: Pain, Mild 1-3,fever,headache Last Admin: 09/18/25 22:04 Dose: 650 mg Documented By: LEVY Albuterol Sulfate (Albuterol Sulfate 90 Mcg 8 Gm Inhaler) 2 puff INHALE Q4H PRN PRN Reason: Wheezing Aspirin (Aspirin Enteric Coated 81 Mg Tablet.) 81 mg PO DAILY [facility] Last Admin: 09/21/25 08:02 Dose: 81 mg Documented By: ANA LAURA Atorvastatin Calcium (Atorvastatin Calcium 80 Mg Tablet) 80 mg PO BEDTIME [facility] Last Admin: 09/20/25 22:00 Dose: 80 mg Documented By: ASHLEY Calcium Carbonate (Calcium Carbonate 750 Mg Tab.Chew) 750 mg PO Q4H PRN PRN Reason: Heartburn Carbidopa/Levodopa (Carbidopa/Levodopa 25/100 Tablet) 1 tab PO TID [facility] Last Admin: 09/21/25 14:03 Dose: 1 tab Documented By: ANA LAURA Dextrose (Dextrose 50 % 25 Gm/50 Ml Syringe) 25 gm IVPUSH Q15M PRN; Protocol PRN Reason: per Hypoglycemia Standing Ord. Doxazosin Mesylate (Doxazosin Mesylate 2 Mg Tablet) 8 mg PO BEDTIME [facility]; Protocol Last Admin: 09/20/25 22:00 Dose: 8 mg Documented By: ASHLEY Enoxaparin Sodium (Enoxaparin Sodium 40 Mg/0.4 Ml Syringe) 40 mg SUBCUT Q24H [facility] Last Admin: 09/21/25 14:03 Dose: 40 mg Documented By: ANA LAURA Finasteride (Finasteride 5 Mg Tablet) 5 mg PO DAILY [facility] Last Admin: 09/21/25 08:02 Dose: 5 mg Documented By: ANA LAURA Folic Acid (Folic Acid 1 Mg Tablet) 1 mg PO SUMOTUTHFRSA@0900 [facility] Last Admin: 09/20/25 07:39 Dose: 1 mg Documented By: ENID Glucose (Glucose Gel 15 Gm Gel..Gram.) 15 gm PO Q15M PRN; Protocol PRN Reason: per Hypoglycemia Standing Ord. Piperacillin Sod/Tazobactam (Sod 4.5 gm/ Sodium Chloride) 100 mls @ 200 mls/hr IV Q6H [facility] Last Infusion: 09/21/25 14:42 Dose: Infused Documented By: ANA LAURA Insulin Glargine (Insulin Glargine,Hum.Rec.Anlog 100 Unit/Ml 10 Ml Vial) 35 unit SUBCUT BEDTIME [facility] Last Admin: 09/20/25 22:01 Dose: 35 unit Documented By: ASHLEY Insulin Human Lispro (Insulin Lispro 100 Unit/Ml 3 Ml Vial) 0 unit SUBCUT QIDACHS [facility]; Protocol Last Admin: 09/21/25 11:36 Dose: 8 unit Documented By: ANA LAURA Loratadine (Loratadine 10 Mg Tablet) 10 mg PO DAILY [facility] Last Admin: 09/21/25 08:02 Dose: 10 mg Documented By: ANA LAURA Magnesium Hydroxide (Milk Of Magnesia 30 Ml Oral.Susp) 30 ml PO DAILY PRN PRN Reason: Constipation Last Admin: 09/21/25 14:03 Dose: 30 ml Documented By: ANA LAURA Melatonin (Melatonin 3 Mg Tablet) 6 mg PO BEDTIME PRN PRN Reason: Insomnia Omeprazole (Omeprazole 20 Mg Capsule.) 20 mg PO DAILY@0630 [facility] Last Admin: 09/21/25 05:38 Dose: 20 mg Documented By: ASHLEY Ondansetron HCl (Ondansetron Hcl 4 Mg/2 Ml Vial) 4 mg IVPUSH Q8H PRN PRN Reason: Nausea and Vomiting Oseltamivir Phosphate (Oseltamivir Phosphate 75 Mg Capsule) 75 mg PO Q12H [facility] Stop: 09/22/25 21:01 Last Admin: 09/21/25 08:02 Dose: 75 mg Documented By: ANA LAURA Sodium Chloride (0.9 % Sodium Chloride Flush 3 Ml Syringe) 3 ml IVFLUSH QSHIFT [facility] Last Admin: 09/21/25 14:58 Dose: Not Given Documented By: ANA LAURA Non-Admin Reason: Previously Administered Sulfacetamide Sodium (Sulfacetamide Sodium 10 % Oph 15 Ml Drbtl) 2 drop EYE-BOTH Q3H [facility] Stop: 09/21/25 22:59 Last Admin: 09/21/25 14:05 Dose: 2 drop Documented By: ANA LAURA Vitamin D (Cholecalciferol (Vitamin D3) 25 Mcg Tablet) 125 mcg PO DAILY [facility] Last Admin: 09/21/25 08:02 Dose: 125 mcg Documented By: ANA LAURA Labs 09/19/25 05:09 09/21/25 06:06 Labs: Laboratory Results - last 24 hr 09/20/25 09/20/25 09/20/25 16:08 19:47 20:29 Hold Purple Top Estim Creat Clear Calc Estimated GFR POC Glucose 290 H 301 H Random Vancomycin 7.1 L 09/21/25 09/21/25 09/21/25 06:06 07:33 11:31 Hold Purple Top SEE NOTE Estim Creat Clear Calc 65.7 Estimated GFR > 60 POC Glucose 236 H 304 H Random Vancomycin Microbiology Microbiology Results: Microbiology 09/20/25 12:23 Blood Culture - Preliminary Blood - Venous No growth after 24 hours. 09/20/25 12:23 Blood Culture - Preliminary Blood - Venous No growth after 24 hours. Assessment and Plan (1) Bacteremia due to Enterococcus: Status: Acute (2) Influenza A: Status: Acute Plan 65-year-old man admitted with viral sepsis secondary to influenza A 1.Enterococcus faecalis bacteremia(09/30) -2D echo negative for valvular vegetative growth -IV vancomycin d/c given echo findings as per ID recommendation -abdominal CTA negative for source -we will hold on PICC line; if cultures negative recommendation is oral amoxicillin 2.Viral sepsis secondary to influenza A -Sepsis resolved -complete course of Tamiflu as ordered -Supplemental oxygen to keep oxygen saturation greater than 90% 3.Diabetes mellitus type 2 -acceptable control on current therapies -lispro correctional scale -adjust therapies as indicated 4.Hypertension -acceptable control on current therapies -adjust as indicated Lovenox Full code Quality Stroke Does the patient have a stroke diagnosis?: No VTE Prior VTE?: No VTE Risk Level:: Medical - moderate - high VTE Device Contraindication: Treatment Not Indicated VTE Drug Contraindication: N/A - Med Ordered
[2025-09-21 16:00] VITALS: BP 110/50; PULSE 55; RESP 18; TEMP 36.7; O2SAT 98
[2025-09-21 16:34] LABS: Glucose, Whole Blood 257 mg/dL (60-115)
[2025-09-21 20:00] VITALS: BP 137/65; PULSE 64; RESP 18; TEMP 36.8; O2SAT 94
[2025-09-21 20:46] LABS: Glucose, Whole Blood 274 mg/dL (60-115)
[2025-09-21 21:52] VITALS: BP 139/66; PULSE 61; RESP 20; O2SAT 93
[2025-09-21] MEDS: 0.9 % Sodium Chloride Flush 3 ML SYRINGE IVFLUSH (21:55)
[2025-09-21] MEDS: Insulin Glargine,Hum.rec.anlog 100 UNIT/ML 10 ML VIAL 35 UNIT SUBCUT (21:55)
[2025-09-22 03:02] VITALS: BP 159/73; PULSE 54; RESP 18; TEMP 37.2; O2SAT 95
[2025-09-22 06:31] LABS: MANUAL DIFF FLAG NO
[2025-09-22 06:52] LABS: Hematocrit 37.3 % (42.0-52.0); Hemoglobin 12.5 g/dl (14.0-18.0); Imm Gran Abs Auto 0.02 X10*3/uL (0.00-0.03); Imm Gran Pct Auto 0.5 % (0.0-0.4); Lymphocytes Absolute Auto 1.2 X10*3/uL (1.2-4.9); Mean Corpuscular HGB Conc 33.5 g/dl (31.0-36.0); Mean Corpuscular Hemoglobin 30.1 pg (27.0-33.0); Mean Corpuscular Volume 89.9 fL (80.0-98.0); NRBC Abs Auto 0.000 X10*3/uL (0.0-0.012); NRBC Pct Auto 0.0 /100WBC (0.0-0.2); Platelet Count 178 X10*3/uL (160-400); Red Blood Count 4.15 X10*6/uL (4.60-5.80); White Blood Count 4.3 X10*3/uL (4.8-10.8)
[2025-09-22 06:53] LABS: Alanine Aminotransferase 14 U/L (0-40); Albumin Level 3.8 g/dL (3.5-5.0); Alkaline Phosphatase 50 U/L (39-117); Anion Gap 12 (12-20); Aspartate Amino Transferase 31 U/L (5-37); Blood Urea Nitrogen 19 mg/dL (9-16); Calcium 9.0 mg/dL (8.4-10.2); Carbon Dioxide 26 mmol/L (22-29); Chloride 103 mmol/L (96-108); Creatinine Clr Calc Pharmacy 64.6; Estimated Glomerular Filt Rate > 60; Potassium 4.1 mmol/L (3.3-5.1); Sodium 137 mmol/L (135-145); Total Protein 6.1 g/dL (6.5-8.0)
[2025-09-22 07:45] LABS: Glucose, Whole Blood 290 mg/dL (60-115)
[2025-09-22 07:56] VITALS: BP 155/82; PULSE 65; RESP 16; TEMP 36.8; O2SAT 97
[2025-09-22] MEDS: Aspirin Enteric Coated 81 MG TABLET.DR PO (08:01)
[2025-09-22 11:06] LABS: Glucose, Whole Blood 308 mg/dL (60-115)
--- NOTE | 2025-09-22 11:13 | P.DS_ITS ---
DS: Providers Provider Date of admission: 09/18/25 13:57 Date of discharge: 09/22/25 Primary care physician: Rodolfo Sim PA-C Consults: 09/19/25 11:47 Consult to Infectious Diseases Routine Consulting Provider: [facility] [place] Infectious Disease [facility] Reason for consultation: Enterococcus/Streptococcus bacteremia 09/19/25 17:15 Consult to Wound Care Routine Consulting Provider: [facility] [place] Wound Care Management Reason for consultation: redness left groin. ?MASD 09/21/25 01:02 Consult to Wound Care Routine Consulting Provider: [facility] [place] Wound Care Management Reason for consultation: redness to left groin DS: Diagnosis Discharge Diagnosis (1) Bacteremia due to Enterococcus: Status: Acute (2) Influenza A: Status: Acute DS: Summary Hospital Course Hospital Course: 65-year-old man presenting from home with fever, nausea, malaise, cough for 3 days. Patient was found to have oxygen saturation of 88% on room air as per EMS. He was placed on 2 L of oxygen via nasal cannula with a good effect. Patient reported that he has just been feeling very weak. He does live with his family who assist him as he does have a history of stroke. He reports that he normally uses a walker for ambulation. He was noted to have fever, tachypnea and influenza a was positive. Chest CT was negative for consolidation or effusion. Patient denied chest pain, vomiting, diarrhea, recent illness, sick contacts, recent travel. He was given Tamiflu, Zosyn, azithromycin, Tylenol, 1 L of IV fluid and ibuprofen in the ER. He will be admitted for further management and treatment of acute hypoxic respiratory failure secondary to influenza a. [facility] Patient admitted to the general medical floor and maintained on nasal cannula. He was started on Tamiflu and empiric Zosyn and azithromycin. Over the course of the next several days he was weaned off O2 without issue. Initial blood cultures from 09/18/25 demonstrated 1/2 bottles with Enterococcus faecalis. He was maintained on Zosyn and a TTE failed to demonstrate evidence of vegetative growth. Blood cultures remained negative and ID recommendation was 2 weeks of amoxicillin t.i.d.. He will be discharged on same to follow up with his PCP Time Attestation Discharge Coordination Time (in mins): 35 Quality: Safe Use of Opioids Does Pt have an Active Cancer Diagnosis on the Problem List?: No Quality: Stroke Does the patient have a stroke diagnosis?: No Physical Exam Vital Signs: Vital Signs: Last Vital Signs Temp 98.2 F 09/22/25 07:56 Pulse 65 09/22/25 07:56 Resp 16 09/22/25 07:56 BP 155/82 H 09/22/25 07:56 Pulse Ox 97 09/22/25 07:56 O2 Del Method Room Air 09/22/25 07:56 O2 Flow Rate 2 09/20/25 07:43 BMI result Body Mass Index 27.1 Const: Other: Awake alert no acute distress Resp: Other: Clear to auscultation bilaterally no rales rhonchi or wheezes Cardio: Other: No S4; positive S1-S2; no S3 murmurs rubs or gallops GI: Other: Soft nontender nondistended normoactive bowel sounds Extrem: Other: No edema bilaterally DS: Data Data Completed and Pending Labs on day of discharge: Laboratory Results - last 24 hr 09/21/25 09/21/25 09/21/25 11:31 16:18 20:16 WBC RBC Hgb Hct MCV MCH MCHC RDW Plt Count MPV Immature Gran % (Auto) Neut % (Auto) Lymph % (Auto) Stephens % (Auto) Eos % (Auto) Baso % (Auto) Lymph # (Auto) Stephens # (Auto) Eos # (Auto) Baso # (Auto) Abs Immat Gran (auto) Absolute Neuts (auto) Absolute Nucleated RBC Nucleated RBC % (auto) Sodium Potassium Chloride Carbon Dioxide Anion Gap BUN Creatinine Estim Creat Clear Calc Estimated GFR POC Glucose 304 H 257 H 274 H Fasting Glucose Calcium Total Bilirubin AST ALT Alkaline Phosphatase Total Protein Albumin 09/22/25 09/22/25 09/22/25 05:35 07:41 11:02 WBC 4.3 L RBC 4.15 L Hgb 12.5 L Hct 37.3 L MCV 89.9 MCH 30.1 MCHC 33.5 RDW 13.6 Plt Count 178 MPV 11.9 Immature Gran % (Auto) 0.5 H Neut % (Auto) 60.6 Lymph % (Auto) 27.3 Stephens % (Auto) 8.6 Eos % (Auto) 2.1 Baso % (Auto) 0.9 Lymph # (Auto) 1.2 Stephens # (Auto) 0.4 Eos # (Auto) 0.1 Baso # (Auto) 0.0 Abs Immat Gran (auto) 0.02 Absolute Neuts (auto) 2.6 Absolute Nucleated RBC 0.000 Nucleated RBC % (auto) 0.0 Sodium 137 Potassium 4.1 Chloride 103 Carbon Dioxide 26 Anion Gap 12 BUN 19 H Creatinine 1.14 Estim Creat Clear Calc 64.6 Estimated GFR > 60 POC Glucose 290 H 308 H Fasting Glucose 293 H Calcium 9.0 Total Bilirubin 0.5 AST 31 ALT 14 Alkaline Phosphatase 50 Total Protein 6.1 L Albumin 3.8 Preliminary micro results at discharge 09/20/25 12:23 Blood Culture - Preliminary Blood - Venous No growth after 24 hours. 09/20/25 12:23 Blood Culture - Preliminary Blood - Venous No growth after 24 hours. 09/18/25 06:37 Blood Culture - Preliminary Blood - Venous No growth after 48 hours. Discharge Plan Discharge Anticipated Discharge Date/Time: 09/22/25 11:05 Patient Disposition: Home Health Service Discharge Diagnosis: Enterococcus bacteremia Referrals: Rodolfo Sim PA-C [Primary Care Provider, Internal Medicine] - 1 Week Discharge Medications: New amoxicillin 500 mg capsule 500 mg PO TID Qty: 42 0RF Continued lisinopril-hydrochlorothiazide 20-12.5 mg tablet 1 tab PO DAILY fexofenadine 180 mg Tablet 180 mg PO DAILY carboxymethylcellulose sodium 1 % Drops, Liquid Gel 1 drp OPHTHALMIC (EYE) QID PRN (Reason: Dry Eyes) atorvastatin 80 mg tablet 80 mg PO BEDTIME aspirin 81 mg Tablet,Delayed Release (Dr/Ec) 81 mg PO DAILY methotrexate sodium 2.5 mg tablet 20 mg PO WE@0900 Rx Instructions: every friday omeprazole 20 mg capsule,delayed release(DR/EC) 20 mg PO DAILY@0630 folic acid 1 mg tablet 1 mg PO SUMOTUTHFRSA@0900 albuterol sulfate [Ventolin HFA] 90 mcg/actuation HFA aerosol inhaler 2 puff inhalation Q4H PRN (Reason: wheezing) insulin glargine [Lantus Solostar U-100 Insulin] 100 unit/mL (3 mL) insulin pen 35 unit subcut BEDTIME cholecalciferol (vitamin D3) [Vitamin D3] 125 mcg (5,000 unit) Tablet 125 mcg PO DAILY acetaminophen 500 mg Tablet 1,000 mg PO BID carbidopa-levodopa 25-100 mg tablet 1 tab PO TID Fish Oil 150-217-840 mg Capsule,Delayed Release(Dr/Ec) 1 cap PO DAILY famotidine [Pepcid] 20 mg Tablet 20 mg PO DAILY PRN (Reason: Acid Reflux) insulin lispro [Humalog KwikPen Insulin] 100 unit/mL insulin pen See Protocol subcut TIDA Protocol: Insulin Correction Scale Less than or equal to 110 ---- Give (units): 0 111 to 150 Give (units): 0 151 to 200 Give (units): 2 201 to 250 Give (units): 4 251 to 300 Give (units): 6 301 to 350 Give (units): 8 Greater than 350 Give (units): 10 Call MD if Blood Glucose > : 350 Rx Instructions: max of 54 units terazosin 10 mg capsule 10 mg PO BEDTIME 90 Days Qty: 90 3RF finasteride 5 mg tablet 5 mg PO DAILY 90 Days Qty: 90 3RF Discharge Orders: Discharge Order (Routine); Ordered 09/22/25 Ordered By: Hood Coker Diet: Advance to usual diet Activity on Discharge: As tolerated Stand Alone Forms: Patient Portal Discharge page Print Language: Serbian Care Plan Goals: Continue all medicines as taken prior to hospital Health Concerns: Amoxicillin 500 mg 3 times a day for 2 weeks has been added to your regimen. Complete this as ordered Plan of Treatment: Follow up with the PCP next available Assessment: See discharge summary
--- NOTE | 2025-09-22 11:18 | W.MHC.F2F ---
Service Date Service Date: 09/22/25 Encounter Date of encounter: 09/22/25 Encounter: Acute hospitalization Reasons for Services Signs and symptoms assessed: Respiratory status and med management. Reason for half-way: medication management and teach disease management Reason for physical therapy: home safety and mobility and therapeutic exercises Homebound: Leaving the home is medically contraindicated at this time without the asist of a device and/or another person due th the listed conditions above and below. Reason homebound: unsteady gait / fall risk and unable to drive Certification: Based on the above findings, I certify that this patient is confined to the home and needs intermittent half-way care, physical therapy and/or speech therapy, or continues to need occupational therapy. The patient is under my care, and I have initiated the establishment of the plan of care. The patient will be followed by a physician who will periodically review the plan of care. Time Spent With Patient Time: Total time managing care of this patient today ____ minutes.
--- NOTE | 2025-09-22 11:38 | MHC.CM.PN ---
DP: PT HAS BEEN MEDICALLY CLEARED FOR DC HOME WITH NEW [facility] FOR SN/P.T. SERVICES. [facility] NOTIFIED OF TODAY'S DC. PT'S SON WILL TRANSPORT HOME AT 1 PM.
== END 2025-09-22 12:56 | disposition home health service (06) | DRG 872 ==
LOC: HO.ED 12:05 → HO.EDOVER 14:01 → HO.S3 09-19 08:19
PROVIDERS: Nurse Practitioner Family; Student in an Organized Health Care Education/Training Program; Admitting Provider Nurse Practitioner Acute Care; Emergency Provider Emergency Medicine Emergency Medical Services; PCP Internal Medicine Cardiovascular Disease; Visit Provider Hospitalist
DX: A41.89 Other specified sepsis (principal); J10.1 Influenza due to other identified influenza virus with other respiratory manifestations; E11.9 Type 2 diabetes mellitus without complications; B95.2 Enterococcus as the cause of diseases classified elsewhere; I10 Essential (primary) hypertension; R09.02 Hypoxemia; N40.0 Benign prostatic hyperplasia without lower urinary tract symptoms; K21.9 Gastro-esophageal reflux disease without esophagitis; Z20.822 Contact with and (suspected) exposure to COVID-19; H10.9 Unspecified conjunctivitis; Z79.4 Long term (current) use of insulin; Z79.82 Long term (current) use of aspirin; Z79.631 Long term (current) use of antimetabolite agent; Z79.899 Other long term (current) drug therapy
CPT/HCPCS: 36415; 71046; 71275; 74176; 80048; 80053; 80202; 81003; 82565; 82947; 83605; 85025; 85027; 87040; 87077; 87186; 87205; 87637; 93306; 99285; J0456; J1650; J2543; J3373; J3374; Q9957; Q9967

== ENCOUNTER → 2025-09-18 06:16 | Outpatient (BNV) | payer MEDICARE, MEDICAID, SELFPAY | PROVIDERS: Emergency Provider Emergency Medicine Emergency Medical Services; PCP Internal Medicine Cardiovascular Disease; Visit Provider Specialist | DX: R05.9 Cough, unspecified (principal); R50.9 Fever, unspecified | CPT/HCPCS: 71046 ==

== ENCOUNTER 2025-09-18 13:57 | Outpatient (BNV) | payer MEDICARE, MEDICAID, SELFPAY | END 2025-09-19 12:00 | PROVIDERS: Admitting Provider Nurse Practitioner Acute Care; Emergency Provider Emergency Medicine Emergency Medical Services; PCP Internal Medicine Cardiovascular Disease; Visit Provider Internal Medicine Cardiovascular Disease | DX: I77.810 Thoracic aortic ectasia (principal) | CPT/HCPCS: 93306 ==

== ENCOUNTER 2025-09-18 13:57 | Outpatient (BNV) | payer MEDICARE, MEDICAID, SELFPAY | END 2025-09-20 15:29 | PROVIDERS: Admitting Provider Nurse Practitioner Acute Care; Emergency Provider Emergency Medicine Emergency Medical Services; PCP Internal Medicine Cardiovascular Disease; Visit Provider Radiology Diagnostic Ultrasound | DX: N20.1 Calculus of ureter (principal); R91.8 Other nonspecific abnormal finding of lung field | CPT/HCPCS: 74176 ==

== ENCOUNTER → 2025-09-18 13:57 | Outpatient (BNV) | payer MEDICARE, MEDICAID, SELFPAY | PROVIDERS: Admitting Provider Nurse Practitioner Acute Care; Emergency Provider Emergency Medicine Emergency Medical Services; PCP Internal Medicine Cardiovascular Disease; Visit Provider Internal Medicine | DX: N28.1 Cyst of kidney, acquired (principal); R33.9 Retention of urine, unspecified; R78.81 Bacteremia | CPT/HCPCS: 99222 ==

== ENCOUNTER → 2025-09-18 13:57 | Outpatient (BNV) | payer MEDICARE, MEDICAID, SELFPAY | PROVIDERS: Admitting Provider Nurse Practitioner Acute Care; Emergency Provider Emergency Medicine Emergency Medical Services; PCP Internal Medicine Cardiovascular Disease; Visit Provider Nurse Practitioner Acute Care | DX: J10.1 Influenza due to other identified influenza virus with other respiratory manifestations (principal) | CPT/HCPCS: 99232; 99499 ==